=== PATIENT | male | born 1950 | race Caucasian/White ===

== ENCOUNTER 2020-05-30 23:09 | Emergency (ER) | payer MEDICARE, MEDICAID, SELFPAY ==
[2020-05-31 01:13] LABS: Anion Gap 20 (12-20); Carbon Dioxide 24 mmol/L (22-29); Chloride 96 mmol/L (96-108); Potassium 4.5 mmol/l (3.3-5.1); Sodium 135 mmol/L (135-145)
[2020-05-31 02:25] LABS: Blood Urea Nitrogen 43 mg/dL (9-16)
[2020-05-31 02:27] LABS: Calcium 8.1 mg/dL (8.4-10.2); Estimated Glomerular Filt Rate 9; Glucose Random 104 mg/dL (60-115)
--- NOTE | 2020-05-31 04:05 | ECG_ITS ---
Test Reason : TACHY Blood Pressure : / mmHG Vent. Rate : 115 BPM Atrial Rate : 108 BPM P-R Int : 142 ms QRS Dur : 078 ms QT Int : 348 ms P-R-T Axes : 054 -30 096 degrees QTc Int : 481 ms Sinus tachycardia with Premature atrial complexes and Premature ventricular complexes Left axis deviation Minimal voltage criteria for LVH, may be normal variant Cannot rule out Anterior infarct , age undetermined Abnormal ECG When compared with ECG of 29-MAY-2020 05:09, Premature atrial complexes are now Present Heart rate has increased Referred By: Winston Hernandez Electronically Signed By:SLAVA DOVE
[2020-05-31 04:43] LABS: Basophils Percent Auto 0.9 % (0-2); Eosinophils Absolute Auto 0.2 X10*3/uL (0.0-0.4); Eosinophils Percent Auto 4.9 % (0-4); Hematocrit 34.7 % (42-52); Hemoglobin 11.6 g/dl (14.0-18.0); Imm Gran Abs Auto 0.01 X10*3/uL (0.00-0.03); Imm Gran Pct Auto 0.3 % (0.0-0.4); Lymphocytes Absolute Auto 0.6 X10*3/uL (1.2-4.9); Lymphocytes Percent Auto 17.8 % (20-40); MANUAL DIFF FLAG SCAN; Mean Corpuscular HGB Conc 33.4 g/dl (31.0-36.0); Mean Corpuscular Hemoglobin 32.2 pg (27.0-33.0); Mean Corpuscular Volume 96.4 fL (80-98); Mean Platelet Volume 10.5 fL (9.4-12.4); Monocytes Absolute Auto 0.6 X10*3/uL (0.1-1.2); Monocytes Percent Auto 16.1 % (2-11); Neutrophils Absolute Auto 2.1 X10*3/uL (2.0-8.3); PLT CLUMP 1; Platelet Count 128 X10*3/uL (160-400); Red Cell Distribution Width 12.1 % (11.0-16.0); SCAN SMEAR FLAG 1; White Blood Count 3.5 X10*3/uL (4.8-10.8)
[2020-05-31 04:45] LABS: SLIDE REVIEW VERIFIED
[2020-06-03 17:25] VITALS: BMI 52.0
== END 2020-05-31 11:24 | disposition home or self-care (01) ==
PROVIDERS: Emergency Provider Emergency Medicine
DX: R10.9 Unspecified abdominal pain (principal); I12.0 Hypertensive chronic kidney disease with stage 5 chronic kidney disease or end stage renal disease; N18.6 End stage renal disease; Z99.2 Dependence on renal dialysis; R53.1 Weakness; R00.0 Tachycardia, unspecified; Z79.899 Other long term (current) drug therapy
CPT/HCPCS: 36415; 80048; 80051; 85025; 93005; 93010; 99283

== ENCOUNTER 2020-08-03 06:01 | Emergency (ER) | payer MEDICARE, MEDICAID, SELFPAY ==
[2020-08-03 06:07] VITALS: BP 172/98; PULSE 71; RESP 16; TEMP 36.8; O2SAT 97; BMI 28.0
--- NOTE | 2020-08-03 06:25 | PC.NURSE ---
SPOKE W/JUSTYNA- CHARGE NURSE AT [facility] IN [place]. STATES WILL ACCEPT PT IF HE IS TRANSFERED OVER TODAY
--- NOTE | 2020-08-03 06:29 | ED_ITS ---
HPI - Medical Clearance General Chief complaint: Medical Clearance Stated complaint: MISSED DIALYSIS Time Seen by Provider: 08/03/20 06:29 Source: patient and expediter clerk Mode of arrival: EMS Limitations: no limitations History of Present Illness HPI Narrative: This is a 70-year-old male who was scheduled for dialysis yesterday and then had to reschedule for this morning, transport was supposed to pick him up at 5:00 a.m. and when they did not show up his son called 911. EMS brought the patient here. On discussion with the son he denies that there was any medical reason to call the ambulance for his father other than he was concerned that he would not get his dialysis. The patient himself denies any shortness of breath, chest pain /palpitations, nausea /vomiting, abdominal pain or diarrhea. Related Information Allergies Allergy/AdvReac Type Severity Reaction Status Date / Time No Known Allergies Allergy Mild N/A Verified 08/03/20 06:11 Review of Systems Review of Systems: Pertinent positives and negatives as stated in the HPI 10 point review of systems is otherwise negative. PMFSH Past Medical History Source: nursing notes reviewed Social History Social History Advance Directives: No Advance Directives Information Provided: No Physical Exam Vital Signs: Vital Signs: Last Vital Signs Temp 98.2 F 08/03/20 06:07 Pulse 71 08/03/20 06:07 Resp 16 08/03/20 06:07 BP 172/98 H 08/03/20 06:07 Pulse Ox 97 08/03/20 06:07 Body Mass Index 28.0 VITAL SIGNS: Reviewed. GENERAL: Well developed, well nourished, in no acute distress. 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 No adventitious sounds or accessory muscle use. SpO2<97> CARDIOVASCULAR: Regular rate and rhythm without noted murmurs, no JVD or lower extremity edema. ABDOMEN: Soft, non-tender, non-distended with bowel sounds. No rigidity. No guarding. No palpable masses or hernias noted MUSCULOSKELETAL: No tenderness, deformities, or effusions noted on gross inspection. EXTREMITIES: No cyanosis, clubbing; LUE: AV Fistula SKIN: Inspection of the skin reveals no rashes, ulcerations, jaundice, pallor, or petechiae. NEUROLOGIC: Alert and oriented x 3. Spontaneous, movement of all extremities. Course Course Course Narrative: This is a 70-year-old male with history and clinical presentation consistent with miscommunication regarding transportation arrangements for scheduled dialysis without any medical complaints when discussed with both the patient as well as family. Discharge Plan Discharge Clinical Impression: Encounter for medical screening examination Patient Disposition: Xfer Other Additional Instructions: The patient and/or family acknowledge understanding of results (as applicable), diagnosis, treatment plan, need for follow up, and symptoms that should prompt a return to the emergency room.
[2020-08-03 08:11] VITALS: RESP 16
== END 2020-08-03 08:20 | disposition other institution (70) ==
PROVIDERS: Emergency Provider Student in an Organized Health Care Education/Training Program
DX: Z04.89 Encounter for examination and observation for other specified reasons (principal)
CPT/HCPCS: 99283; 99285

== ENCOUNTER 2020-08-10 00:14 | Emergency (ER) | payer MEDICARE, MEDICAID, SELFPAY ==
--- NOTE | 2020-08-10 00:23 | ED.CHESTPAIN ---
HPI - Chest Pain General Chief Complaint: General Medical Stated Complaint: Chest pain Time Seen by Provider: 08/10/20 00:23 Source: EMS Mode of arrival: EMS Limitations: no limitations History of Present Illness HPI narrative: Patient denies any complaints. Per EMS patient nephew told them that patient had chest pain prior to arrival history is not very clear as patient denies no chest pain and he is alert oriented x2-3. Per patient nephew who has a SALES PROJECT ADMINISTRATOR also lives with him patient said to him that he is not feeling good and had chest pain prior to arrival no shortness of breath patient had dialysis today and yesterday MD complaint: chest pain Related Data Allergies Allergy/AdvReac Type Severity Reaction Status Date / Time No Known Allergies Allergy Mild N/A Verified 08/03/20 06:11 Review of Systems Review of Systems: REVIEW OF SYSTEMS: Pertinent positives and negatives are stated above in the history. GEN: no fevers, chills, fatigue HEENT: no nasal congestion, sore throat, ear pain NEURO: no headache, dizziness, focal weakness PULM: no cough, shortness of breath CV: no chest pain, palpitations, LE edema ABD: no abdominal pain, nausea, vomiting, diarrhea : no dysuria, urgency, frequency SKIN: no rash ROS otherwise negative x 10 PMFSH Social History Social History Advance Directives: No Physical Exam Vital Signs: Vital Signs: Last Vital Signs Temp 97.1 F 08/10/20 00:39 Pulse 93 08/10/20 00:39 Resp 16 08/10/20 00:39 BP 134/85 08/10/20 00:39 Pulse Ox 98 08/10/20 00:39 Body Mass Index 27.3 Const: General: cooperative, healthy appearing, comfortable and no acute distress Orientation/consciousness: oriented to person, oriented to place and No oriented to time Limitations: no limitations HENMT: Head: Yes normocephalic and Yes atraumatic Ears: hearing grossly normal bilaterally General nose exam: Normal external nose present 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 Neck: Neck: Yes normal visual inspection Carotids: normal carotid upstroke Chest: Chest palpation & inspection: normal inspection of the chest and normal palpation of entire chest wall Resp: Effort & Inspection: normal respiratory effort Auscultation: clear to auscultation bilaterally, no crackles, no rales and no rhonchi Cardio: Palpation: normal PMI Rate: regular rate Rhythm: regular rhythm Heart sounds: S1 normal heart sound present and S2 normal heart sound present Peripheral pulses: Peripheral pulses 2+ throughout GI: Inspection: Yes normal to inspection Palpation (GI): Soft to palpation and nontender Auscultation: normal bowel sounds Back/Spine/Pelvis: Thoracic/Lumbar Spine: thoracic and lumbar spine normal to inspection Neuro: General: oriented to person, oriented to place, No oriented to time, tone normal, moves all extremities, Normal light touch and pain sensation and CN's II-XI intact bilaterally Extrem: Other: AV fistula left forearm bruit + Course Course Course Narrative: Patient denies any complaints but per SALES PROJECT ADMINISTRATOR patient had chest pain at home prior to arrival EKG no acute changes with the labs at this time patient denies any complaints MDM - Chest Pain MDM Narrative Medical decision making narrative: Patient with questionable chest pain at home prior to arrival awaiting for the labs no acute EKG changes patient denies any chest pain at this time. Patient signed out to Dr. Edward for further evaluation and disposition Medical Records Data Attestation: I reviewed the patient's medical records. Lab Data Result diagrams: 08/10/20 01:08/10/20 01:01 Labs: Lab Results 08/10/20 08/10/20 08/10/20 Range/Units 01:01 01:01 01:01 WBC 5.4 (4.8-10.8) X10*3/uL RBC 3.92 L (4.60-5.80) X10*6/uL Hgb 12.4 L (14.0-18.0) g/dl Hct 36.4 L (42-52) % MCV 92.9 (80-98) fL MCH 31.6 (27.0-33.0) pg MCHC 34.1 (31.0-36.0) g/dl RDW 13.1 (11.0-16.0) % Plt Count 228 D (160-400) X10*3/uL MPV 9.8 (9.4-12.4) fL Immature Gran % (Auto) 0.4 (0.0-0.4) % Neut % (Auto) 70.2 (45-73) % Lymph % (Auto) 13.2 L (20-40) % [place] % (Auto) 13.4 H (2-11) % Eos % (Auto) 2.6 (0-4) % Baso % (Auto) 0.2 (0-2) % Lymph # (Auto) 0.7 L (1.2-4.9) X10*3/uL [place] # (Auto) 0.7 (0.1-1.2) X10*3/uL Eos # (Auto) 0.1 (0.0-0.4) X10*3/uL Baso # (Auto) 0.0 (0.0-0.2) X10*3/uL Abs Immat Gran (auto) 0.02 (0.00-0.03) X10*3/uL Absolute Neuts (auto) 3.8 (2.0-8.3) X10*3/uL Absolute Nucleated RBC 0.000 (0.0-0.012) X10*3/uL Nucleated RBC % (auto) 0.0 (0.0-0.2) /100WBC PT 11.5 (10.8-13.0) SEC INR 1.0 (0.9-1.1) APTT 29.3 (24.1-38.0) SEC Sodium Cancelled Potassium Cancelled Chloride Cancelled Carbon Dioxide Cancelled Anion Gap Cancelled BUN Cancelled Creatinine Cancelled Estim Creat Clear Calc Cancelled Estimated GFR Cancelled Random Glucose Cancelled Calcium Cancelled ECG Data ECG #1: Attestation: I personally reviewed and interpreted this ECG as follows: Interpretation: Normal sinus rhythm PACs heart rate 99 left ventricular hypertrophy, n axis, QT interval slightly prolonged QTC [address] T wave changes impression no acute ischemia
--- NOTE | 2020-08-10 00:24 | ECG_ITS ---
Test Reason : CHEST PAIN Blood Pressure : / mmHG Vent. Rate : 099 BPM Atrial Rate : 099 BPM P-R Int : 130 ms QRS Dur : 086 ms QT Int : 378 ms P-R-T Axes : 050 -09 078 degrees QTc Int : 485 ms Sinus rhythm with Premature atrial complexes Left ventricular hypertrophy with repolarization abnormality Prolonged QT Abnormal ECG When compared with ECG of 31-MAY-2020 04:05, Premature ventricular complexes are no longer Present Referred By: Brady Frances Electronically Signed By:RICKIE KUMAR
[2020-08-10 00:39] VITALS: BP 134/85; PULSE 93; RESP 16; TEMP 36.2; O2SAT 98; BMI 27.3
[2020-08-10 01:06] LABS: MANUAL DIFF FLAG NO
[2020-08-10 01:07] LABS: Basophils Percent Auto 0.2 % (0-2); Eosinophils Absolute Auto 0.1 X10*3/uL (0.0-0.4); Eosinophils Percent Auto 2.6 % (0-4); Hematocrit 36.4 % (42-52); Hemoglobin 12.4 g/dl (14.0-18.0); Imm Gran Abs Auto 0.02 X10*3/uL (0.00-0.03); Imm Gran Pct Auto 0.4 % (0.0-0.4); Lymphocytes Absolute Auto 0.7 X10*3/uL (1.2-4.9); Lymphocytes Percent Auto 13.2 % (20-40); Mean Corpuscular HGB Conc 34.1 g/dl (31.0-36.0); Mean Corpuscular Hemoglobin 31.6 pg (27.0-33.0); Mean Corpuscular Volume 92.9 fL (80-98); Mean Platelet Volume 9.8 fL (9.4-12.4); Monocytes Absolute Auto 0.7 X10*3/uL (0.1-1.2); Monocytes Percent Auto 13.4 % (2-11); Neutrophils Absolute Auto 3.8 X10*3/uL (2.0-8.3); Neutrophils Percent Auto 70.2 % (45-73); Platelet Count 228 X10*3/uL (160-400); Red Blood Count 3.92 X10*6/uL (4.60-5.80); Red Cell Distribution Width 13.1 % (11.0-16.0); White Blood Count 5.4 X10*3/uL (4.8-10.8)
[2020-08-10 01:15] LABS: Prothrombin Time 11.5 SEC (10.8-13.0)
[2020-08-10 01:17] LABS: Partial Thromboplastin Time 29.3 SEC (24.1-38.0)
[2020-08-10 01:44] LABS: Troponin-I High Sensitivity 81.8 ng/L (<3.5-35.0)
--- NOTE | 2020-08-10 01:46 | ED.GENADULT ---
HPI - General Adult General Chief complaint: General Medical Stated complaint: Chest pain Time Seen by Provider: 08/10/20 00:23 Source: EMS Mode of arrival: EMS Limitations: no limitations Related Data Previous Rx's Medication Instructions Recorded azithromycin [Zithromax] 500 mg PO DAILY 5 Days #5 tab 09/11/20 Allergies Allergy/AdvReac Type Severity Reaction Status Date / Time No Known Allergies Allergy Mild N/A Verified 08/10/20 02:42 [facility] Social History Social History Alcohol intake: former Smoking Status: Former smoker Advance Directives: No Advance Directives Information Provided: No Physical Exam Vital Signs: Vital Signs: Last Vital Signs Temp 97.1 F 08/10/20 00:39 Pulse 66 08/10/20 09:04 Resp 18 08/10/20 09:04 BP 156/78 H 08/10/20 09:04 Pulse Ox 98 08/10/20 09:04 Body Mass Index 27.3 Medical Decision Making Lab Data Result diagrams: 08/10/20 01:01 08/10/20 01:47 Labs: Lab Results 08/10/20 08/10/20 08/10/20 Range/Units 01:01 01:01 01:01 WBC 5.4 (4.8-10.8) X10*3/uL RBC 3.92 L (4.60-5.80) X10*6/uL Hgb 12.4 L (14.0-18.0) g/dl Hct 36.4 L (42-52) % MCV 92.9 (80-98) fL MCH 31.6 (27.0-33.0) pg MCHC 34.1 (31.0-36.0) g/dl RDW 13.1 (11.0-16.0) % Plt Count 228 D (160-400) X10*3/uL MPV 9.8 (9.4-12.4) fL Immature Gran % (Auto) 0.4 (0.0-0.4) % Neut % (Auto) 70.2 (45-73) % Lymph % (Auto) 13.2 L (20-40) % [place] % (Auto) 13.4 H (2-11) % Eos % (Auto) 2.6 (0-4) % Baso % (Auto) 0.2 (0-2) % Lymph # (Auto) 0.7 L (1.2-4.9) X10*3/uL [place] # (Auto) 0.7 (0.1-1.2) X10*3/uL Eos # (Auto) 0.1 (0.0-0.4) X10*3/uL Baso # (Auto) 0.0 (0.0-0.2) X10*3/uL Abs Immat Gran (auto) 0.02 (0.00-0.03) X10*3/uL Absolute Neuts (auto) 3.8 (2.0-8.3) X10*3/uL Absolute Nucleated RBC 0.000 (0.0-0.012) X10*3/uL Nucleated RBC % (auto) 0.0 (0.0-0.2) /100WBC PT (10.8-13.0) SEC INR (0.9-1.1) APTT (24.1-38.0) SEC Sodium Cancelled Potassium Cancelled Chloride Cancelled Carbon Dioxide Cancelled Anion Gap Cancelled BUN Cancelled Creatinine Cancelled Estim Creat Clear Calc Cancelled Estimated GFR Cancelled Random Glucose Cancelled Calcium Cancelled Total Bilirubin (0.0-1.0) mg/dL Direct Bilirubin (0.0-0.5) mg/dL AST (5-37) U/L ALT (0-40) U/L Alkaline Phosphatase (39-117) U/L Troponin I High Sens 81.8 H (<3.5-35.0) ng/L Total Protein (6.5-8.0) g/dL Albumin (3.5-5.0) g/dL 08/10/20 08/10/20 08/10/20 Range/Units 01:01 01:47 04:13 WBC (4.8-10.8) X10*3/uL RBC (4.60-5.80) X10*6/uL Hgb (14.0-18.0) g/dl Hct (42-52) % MCV (80-98) fL MCH (27.0-33.0) pg MCHC (31.0-36.0) g/dl RDW (11.0-16.0) % Plt Count (160-400) X10*3/uL MPV (9.4-12.4) fL Immature Gran % (Auto) (0.0-0.4) % Neut % (Auto) (45-73) % Lymph % (Auto) (20-40) % [place] % (Auto) (2-11) % Eos % (Auto) (0-4) % Baso % (Auto) (0-2) % Lymph # (Auto) (1.2-4.9) X10*3/uL [place] # (Auto) (0.1-1.2) X10*3/uL Eos # (Auto) (0.0-0.4) X10*3/uL Baso # (Auto) (0.0-0.2) X10*3/uL Abs Immat Gran (auto) (0.00-0.03) X10*3/uL Absolute Neuts (auto) (2.0-8.3) X10*3/uL Absolute Nucleated RBC (0.0-0.012) X10*3/uL Nucleated RBC % (auto) (0.0-0.2) /100WBC PT 11.5 (10.8-13.0) SEC INR 1.0 (0.9-1.1) APTT 29.3 (24.1-38.0) SEC Sodium 133 L Potassium 3.7 Chloride 95 L Carbon Dioxide 25 Anion Gap 17 BUN 43 H Creatinine 4.39 H* Estim Creat Clear Calc 15.3 Estimated GFR 13 Random Glucose 121 H Calcium 8.5 Total Bilirubin 0.8 (0.0-1.0) mg/dL Direct Bilirubin 0.3 (0.0-0.5) mg/dL AST 40 H (5-37) U/L ALT 27 (0-40) U/L Alkaline Phosphatase 106 (39-117) U/L Troponin I High Sens 69.2 H (<3.5-35.0) ng/L Total Protein 7.3 (6.5-8.0) g/dL Albumin 3.3 L (3.5-5.0) g/dL Discharge Plan Discharge Clinical Impression: Chest pain Patient Disposition: Home, Self-Care Instructions: Chest Pain (ED) Additional Instructions: Your EKG and blood work were normal Follow-up with your doctor in 2 days. Please return to the emergency department if her symptoms get worse or if you develop any new symptoms that are concerning to you. Prescriptions: No Action azithromycin [Zithromax] 500 mg tablet 500 mg PO DAILY 5 Days Qty: 5 RF: 0 Interventions: ED Discharge Assessment Last Done: 08/10/20 09:05 Discharge Date/Time: 08/10/20 09:33
[2020-08-10 02:00] VITALS: BP 151/67; PULSE 102; RESP 20; O2SAT 98
--- NOTE | 2020-08-10 02:24 | PC.NURSE ---
NORMAL SALINE ORDER ENTERED IN ERROR BY MD NAHUN LOERA UNABLE TO DC THEREFORE THIS RN DOCUMENTED AGAINST MED. MED NOT GIVEN.
[2020-08-10 02:36] LABS: Alanine Aminotransferase 27 U/L (0-40); Albumin Level 3.3 g/dL (3.5-5.0); Alkaline Phosphatase 106 U/L (39-117); Anion Gap 17 (12-20); Aspartate Amino Transferase 40 U/L (5-37); Bilirubin Direct 0.3 mg/dL (0.0-0.5); Bilirubin Total 0.8 mg/dL (0.0-1.0); Blood Urea Nitrogen 43 mg/dL (9-16); Calcium 8.5 mg/dL (8.4-10.2); Carbon Dioxide 25 mmol/L (22-29); Chloride 95 mmol/L (96-108); Creatinine Clr Calc Pharmacy 15.3; Estimated Glomerular Filt Rate 13; Glucose Random 121 mg/dL (60-115); Potassium 3.7 mmol/l (3.3-5.1); Sodium 133 mmol/L (135-145); Total Protein 7.3 g/dL (6.5-8.0)
--- NOTE | 2020-08-10 03:53 | PC.NURSE ---
patient is a difficult stick. Phlebotomy contacted.
[2020-08-10 04:00] VITALS: BP 152/87; PULSE 94; RESP 18; O2SAT 96
[2020-08-10 05:38] LABS: Troponin-I High Sensitivity 69.2 ng/L (<3.5-35.0)
[2020-08-10 06:00] VITALS: BP 160/85; PULSE 87; RESP 18; O2SAT 98
[2020-08-10 06:40] VITALS: BP 154/83; PULSE 87; RESP 16; O2SAT 99
--- NOTE | 2020-08-10 06:59 | PC.NURSE ---
Preparing to discharge home. Contacted home and school visitor, awaiting arrival to plan discharge.
--- NOTE | 2020-08-10 07:54 | PC.NURSE ---
spoke with patient's primary contact (Ivonne Blevins) on file. [facility] unable to provide transportation home. Patient requesting ambulance ride back home, states that he has dialysis on Thursday, , Thursday. ore sampler notified.
[2020-08-10 09:04] VITALS: BP 156/78; PULSE 66; RESP 18; O2SAT 98
== END 2020-08-10 09:33 | disposition home or self-care (01) ==
PROVIDERS: Internal Medicine; Emergency Provider Emergency Medicine Emergency Medical Services
DX: R07.89 Other chest pain (principal)
CPT/HCPCS: 36415; 80048; 80076; 84484; 85025; 85610; 85730; 93005; 99284

== ENCOUNTER 2020-08-28 14:42 | Outpatient (REF) | payer MEDICARE, MEDICAID, SELFPAY | END 2020-08-28 14:43 | disposition home or self-care (01) | LOC: HO.LAB 14:42 | PROVIDERS: Visit Provider Internal Medicine | DX: Z20.828 Contact with and (suspected) exposure to other viral communicable diseases (principal) | CPT/HCPCS: C9803; U0003 ==

== ENCOUNTER 2020-09-07 13:52 | Outpatient (REF) | payer MEDICARE, MEDICAID, SELFPAY ==
[2020-09-07 14:45] LABS: MANUAL DIFF FLAG NO
[2020-09-07 14:51] LABS: Eosinophils Absolute Auto 0.1 X10*3/uL (0.0-0.4); Eosinophils Percent Auto 1.2 % (0-4); Hematocrit 28.1 % (42-52); Hemoglobin 9.5 g/dl (14.0-18.0); Imm Gran Abs Auto 0.06 X10*3/uL (0.00-0.03); Imm Gran Pct Auto 0.9 % (0.0-0.4); Lymphocytes Absolute Auto 0.9 X10*3/uL (1.2-4.9); Lymphocytes Percent Auto 13.1 % (20-40); Mean Corpuscular HGB Conc 33.8 g/dl (31.0-36.0); Mean Corpuscular Hemoglobin 31.6 pg (27.0-33.0); Mean Corpuscular Volume 93.4 fL (80-98); Mean Platelet Volume 9.8 fL (9.4-12.4); Monocytes Absolute Auto 0.5 X10*3/uL (0.1-1.2); Monocytes Percent Auto 7.7 % (2-11); Neutrophils Absolute Auto 5.3 X10*3/uL (2.0-8.3); Neutrophils Percent Auto 77.1 % (45-73); Platelet Count 168 X10*3/uL (160-400); Red Blood Count 3.01 X10*6/uL (4.60-5.80); Red Cell Distribution Width 13.3 % (11.0-16.0); White Blood Count 6.9 X10*3/uL (4.8-10.8)
[2020-09-07 14:54] LABS: Prothrombin Time 11.4 SEC (10.8-13.0)
[2020-09-07 15:00] LABS: Alanine Aminotransferase 31 U/L (0-40); Alkaline Phosphatase 93 U/L (39-117); Aspartate Amino Transferase 33 U/L (5-37); Bilirubin Direct 0.2 mg/dL (0.0-0.5); Bilirubin Total 0.5 mg/dL (0.0-1.0); Total Protein 5.9 g/dL (6.5-8.0)
[2020-09-12 01:17] LABS: FIB-ALT 27 U/L (9-46); FIB-Alpha-2-Macroglobulin 181 mg/dL (106-279); FIB-Apolipoprotein A1 133 mg/dL (94-176); FIB-GGT 51 U/L (3-70); FIB-Haptoglobin 52 mg/dL (43-212); FIB-Total Bilirubin 0.4 mg/dL (0.2-1.2); Liver Fibrosis Score 0.47; Liver Fibrosis Stage F1-F2; Nec Inflam Act Grade A0; Nec Inflam Act Score 0.16
== END 2020-09-07 13:53 | disposition home or self-care (01) ==
LOC: HO.LAB 13:52
PROVIDERS: PCP Internal Medicine; Visit Provider Internal Medicine
DX: B18.2 Chronic viral hepatitis C (principal)
CPT/HCPCS: 36415; 80076; 81596; 85025; 85610; 87522

== ENCOUNTER 2020-09-10 19:42 | Emergency (ER) | payer MEDICARE, MEDICAID, SELFPAY ==
[2020-09-10 20:18] VITALS: BP 169/76; PULSE 78; RESP 18; TEMP 37.3; O2SAT 94; BMI 28.2
[2020-09-10 20:27] VITALS: BP 169/76; PULSE 78; RESP 16; TEMP 37.3; O2SAT 94
--- NOTE | 2020-09-10 21:04 | XR_ITS ---
EXAMINATION: XR CHEST CLINICAL INFORMATION: Cough COMPARISON: Chest x-ray 05/29/2020 TECHNIQUE: Frontal view of the chest was obtained. FINDINGS: Chronic cardiac enlargement. More consolidated appearance of right lower lobe airspace disease. Small right-sided pleural effusion is also again appreciated. No pneumothorax. XR/XR chest 1V IMPRESSION: Worsening right lower lobe consolidative airspace disease. Persistent small pleural effusion.
--- NOTE | 2020-09-10 21:06 | ED.GENADULT ---
HPI - General Adult General Chief complaint: General Medical Stated complaint: ABD PAIN Time Seen by Provider: 09/10/20 20:54 Source: patient, EMS and lace inspector Mode of arrival: EMS Limitations: no limitations History of Present Illness HPI narrative: 70 years old male came in with cough for the past 3 days describe it as productive cough with yellow sputum, no fever, no chills, patient has been self-quarantine and following precaution for COVID with no exposure to sick contact. Otherwise patient has no other symptoms. No fever, no chills. Related Data Allergies Allergy/AdvReac Type Severity Reaction Status Date / Time No Known Allergies Allergy Mild N/A Verified 08/10/20 02:42 Review of Systems Review of Systems: All other systems are reviewed and are negative Constitutional: Reports as per HPI and Reports no additional constitutional complaints Eyes: Reports as per HPI and Reports no additional eye complaints Reports system reviewed and no additional complaints, except as documented Cardiovascular: Reports as per HPI and Reports no additional cardiovascular complaints Respiratory: Reports as per HPI and Reports no additional respiratory complaints Gastrointestinal: Reports as per HPI and Reports no additional gastrointestinal complaints Genitourinary: Reports no additional female genitourinary complaints Musculoskeletal: Reports no additional musculoskeletal complaints Skin/Breast: Reports system reviewed and no additional complaints, except as docu Psychiatric: Reports no additional psychiatric complaints Endocrine: Reports no additional endocrine complaints Hematologic/Lymphatic: Reports no additional hematologic/lymphatic complaints Allergic/Immunologic: Reports no additional allergic/immunologic complaints Reports system reviewed and no additional complaints, except as documented and Reports Abnormal speech present [facility] Social History Social History Alcohol intake: former Smoking Status: Former smoker Smoked in Last 30 Days: No Use of substances other than those prescribed or required for medical reasons: No Advance Directives: No Advance Directives Information Provided: Yes Physical Exam Vital Signs: Vital Signs: Last Vital Signs Temp 99.2 F 09/10/20 20:27 Pulse 78 09/10/20 20:27 Resp 16 09/10/20 20:27 BP 169/76 H 09/10/20 20:27 Pulse Ox 94 09/10/20 20:27 Body Mass Index 28.2 Vital signs have been reviewed as normal and appeared to be correct. Blood pressure high range, Heart rate normal. Respiration rate normal. Temperature normal. Oxygen saturation normal. Appearance: Alert. Oriented X3. No acute distress. Head: Normal external exam. Normocephalic. Atraumatic. No Alejandra signs noted. No raccoon eyes noted Eyes: PERRLA. EOMI. Conjunctiva and sclera normal. Eyelids normal. ENT: EAC normal. TM's Normal. Pharynx normal. Uvula midline. Moist mucous membranes. No trismus noted. No drooling noted. No muffled voice noted. Neck: Normal inspection. Neck supple. FROM. No adenopathy. Thyroid Normal. No meningeal signs. No neck mass noted. CVS: Normal heart rate and rhythm. Heart sound normal. No murmurs noted. Pulses normal throughout. Respiratory: No respiratory distress. Painless inspiration. Breath sounds normal. No wheezes/rales/rhonchi noted. Chest nontender. No accessory muscle usage noted or decreased air movement noted. Abdomen: Soft and nontender. Bowel sounds normal in all 4 quadrants. No distention noted. No organomegaly noted. No visible injury noted. Back: No CVA tenderness. Full range of motion noted. Skin: Skin warm and dry. Normal skin color. Normal skin turgor. No rashes/lesions/lacerations noted. Extremities: No lower extremity edema. Extremities exhibit normal range of motion. Extremities nontender. Neuro: Oriented X 3. No motor deficit. No sensory deficit. Reflexes normal. Medical Decision Making [facility] Narrative Medical decision making narrative: 70-year-old male came in with complaint of coughing, physical exam and x-ray showed right lower lobe pneumonia. And chronic hyponatremia, acute on chronic renal insufficiency. Patient did not meet criteria for sepsis, patient would like to go home patient is due for dialysis tomorrow patient was instructed to keep his dialysis appointment tomorrow patient missed the last dialysis 2 days ago. Patient received ceftriaxone/zithromax in the ED will prescribe this to gro[facility] to his pharmacy. Lab Data Result diagrams: 09/10/20 22:32 09/10/20 22:32 Labs: Lab Results 09/10/20 09/10/20 09/10/20 Range/Units 22:32 22:32 22:32 WBC 15.6 H (4.8-10.8) X10*3/uL RBC 3.07 L (4.60-5.80) X10*6/uL Hgb 9.9 L (14.0-18.0) g/dl Hct 28.0 L (42-52) % MCV 91.2 (80-98) fL MCH 32.2 (27.0-33.0) pg MCHC 35.4 (31.0-36.0) g/dl RDW 12.7 (11.0-16.0) % Plt Count 182 (160-400) X10*3/uL MPV 9.4 (9.4-12.4) fL Immature Gran % (Auto) 0.6 H (0.0-0.4) % Neut % (Auto) 86.0 H (45-73) % Lymph % (Auto) 5.8 L (20-40) % [place] % (Auto) 7.3 (2-11) % Eos % (Auto) 0.2 (0-4) % Baso % (Auto) 0.1 (0-2) % Lymph # (Auto) 0.9 L (1.2-4.9) X10*3/uL [place] # (Auto) 1.1 (0.1-1.2) X10*3/uL Eos # (Auto) 0.0 (0.0-0.4) X10*3/uL Baso # (Auto) 0.0 (0.0-0.2) X10*3/uL Abs Immat Gran (auto) 0.09 H (0.00-0.03) X10*3/uL Absolute Neuts (auto) 13.4 H (2.0-8.3) X10*3/uL Absolute Nucleated RBC 0.000 (0.0-0.012) X10*3/uL Nucleated RBC % (auto) 0.0 (0.0-0.2) /100WBC Sodium 128 L (135-145) mmol/L Potassium 4.6 D (3.3-5.1) mmol/l Chloride 92 L (96-108) mmol/L Carbon Dioxide 23 (22-29) mmol/L Anion Gap 18 (12-20) BUN 73 H D (9-16) mg/dL Creatinine 6.92 H* (0.5-1.4) mg/dL Estim Creat Clear Calc 9.9 Estimated GFR 8 Random Glucose 120 H (60-115) mg/dL Lactic Acid (0.5-2.0) mmol/L Calcium 8.0 L (8.4-10.2) mg/dL COVID-19 (KATLIN) Negative (Negative) COVID-19 Clin Com See Note 09/11/20 Range/Units 00:24 WBC (4.8-10.8) X10*3/uL RBC (4.60-5.80) X10*6/uL Hgb (14.0-18.0) g/dl Hct (42-52) % MCV (80-98) fL MCH (27.0-33.0) pg MCHC (31.0-36.0) g/dl RDW (11.0-16.0) % Plt Count (160-400) X10*3/uL MPV (9.4-12.4) fL Immature Gran % (Auto) (0.0-0.4) % Neut % (Auto) (45-73) % Lymph % (Auto) (20-40) % [place] % (Auto) (2-11) % Eos % (Auto) (0-4) % Baso % (Auto) (0-2) % Lymph # (Auto) (1.2-4.9) X10*3/uL [place] # (Auto) (0.1-1.2) X10*3/uL Eos # (Auto) (0.0-0.4) X10*3/uL Baso # (Auto) (0.0-0.2) X10*3/uL Abs Immat Gran (auto) (0.00-0.03) X10*3/uL Absolute Neuts (auto) (2.0-8.3) X10*3/uL Absolute Nucleated RBC (0.0-0.012) X10*3/uL Nucleated RBC % (auto) (0.0-0.2) /100WBC Sodium (135-145) mmol/L Potassium (3.3-5.1) mmol/l Chloride (96-108) mmol/L Carbon Dioxide (22-29) mmol/L Anion Gap (12-20) BUN (9-16) mg/dL Creatinine (0.5-1.4) mg/dL Estim Creat Clear Calc Estimated GFR Random Glucose (60-115) mg/dL Lactic Acid 0.8 (0.5-2.0) mmol/L Calcium (8.4-10.2) mg/dL COVID-19 (KATLIN) (Negative) COVID-19 Clin Com Imaging Data Chest x-ray: Radiologist's impression: Worsening right lower lobe consolidative airspace disease. Persistent small pleural effusion. Discharge Plan Discharge Clinical Impression: Acute hyponatremia, Acute kidney injury superimposed on chronic kidney disease, Community acquired pneumonia of right lower lobe of lung Patient Disposition: Admitted As Inpatient
--- NOTE | 2020-09-10 22:47 | PC.NURSE ---
Covid swab and labs obtained.
[2020-09-10 22:54] LABS: MANUAL DIFF FLAG NO
[2020-09-10 23:01] LABS: Basophils Percent Auto 0.1 % (0-2); Eosinophils Percent Auto 0.2 % (0-4); Hemoglobin 9.9 g/dl (14.0-18.0); Imm Gran Abs Auto 0.09 X10*3/uL (0.00-0.03); Imm Gran Pct Auto 0.6 % (0.0-0.4); Lymphocytes Absolute Auto 0.9 X10*3/uL (1.2-4.9); Lymphocytes Percent Auto 5.8 % (20-40); Mean Corpuscular HGB Conc 35.4 g/dl (31.0-36.0); Mean Corpuscular Hemoglobin 32.2 pg (27.0-33.0); Mean Corpuscular Volume 91.2 fL (80-98); Mean Platelet Volume 9.4 fL (9.4-12.4); Monocytes Absolute Auto 1.1 X10*3/uL (0.1-1.2); Monocytes Percent Auto 7.3 % (2-11); Neutrophils Absolute Auto 13.4 X10*3/uL (2.0-8.3); Platelet Count 182 X10*3/uL (160-400); Red Blood Count 3.07 X10*6/uL (4.60-5.80); Red Cell Distribution Width 12.7 % (11.0-16.0); White Blood Count 15.6 X10*3/uL (4.8-10.8)
[2020-09-10 23:10] LABS: COVID-19 Test Negative (Negative)
[2020-09-10] MEDS: Azithromycin 500 MG TABLET 1000 MG PO (23:26)
[2020-09-10 23:27] LABS: Anion Gap 18 (12-20); Blood Urea Nitrogen 73 mg/dL (9-16); Carbon Dioxide 23 mmol/L (22-29); Chloride 92 mmol/L (96-108); Creatinine Clr Calc Pharmacy 9.9; Estimated Glomerular Filt Rate 8; Glucose Random 120 mg/dL (60-115); Potassium 4.6 mmol/l (3.3-5.1); Sodium 128 mmol/L (135-145)
--- NOTE | 2020-09-10 23:27 | PC.NURSE ---
Pt medicated per MAR.
--- NOTE | 2020-09-11 00:09 | PC.NURSE ---
3 IV attempts unsuccessful. MD at bedside with plant maintenance manager discussing plan of care. MD to attempt IV access.
[2020-09-11] MEDS: cefTRIAXone sodium 1 GM in 0.9 % Sodium Chloride 50 ML IV (00:24)
--- NOTE | 2020-09-11 00:26 | PC.NURSE ---
IV established to left EJ by MD Nguyen, 20 ga. Pt medicated per MAR with ABx and IVF. Pt discussing admit VS discharge, pt requesting DC home.
--- NOTE | 2020-09-11 01:00 | PC.NURSE ---
MD advising this RN to only medicate with ABX and not IVF due to plan to discharge home for dialysis.
[2020-09-11 01:04] LABS: Lactic Acid 0.8 mmol/L (0.5-2.0)
[2020-09-11 01:21] VITALS: BP 130/76; PULSE 75; RESP 20
--- NOTE | 2020-09-11 01:24 | PC.NURSE ---
EJ removed by this RN per MD request. VSS. Awaiting EMS to transfer home.
== END 2020-09-11 01:50 | disposition home or self-care (01) ==
PROVIDERS: Emergency Provider Emergency Medicine
DX: E87.1 Hypo-osmolality and hyponatremia (principal); N17.9 Acute kidney failure, unspecified; N18.6 End stage renal disease; J18.9 Pneumonia, unspecified organism; Z20.822 Contact with and (suspected) exposure to COVID-19
CPT/HCPCS: 36415; 71045; 80048; 83605; 85025; 87040; 87147; 87635; 96365; 99284; J0696

== ENCOUNTER 2020-10-04 12:03 | Emergency (ER) | payer MEDICARE, MEDICAID, SELFPAY ==
[2020-10-04 12:21] VITALS: BP 150/77; PULSE 85; RESP 16; TEMP 35.7; O2SAT 97; BMI 26.8
--- NOTE | 2020-10-04 12:41 | ED_ITS ---
HPI - General Adult General Chief complaint: General Medical Stated complaint: FROM DIALYSIS,FISTULA NOT COAGULATING,SECT 12 Time Seen by Provider: 10/04/20 12:23 Source: patient Mode of arrival: ambulatory Limitations: no limitations History of Present Illness HPI narrative: 70-year-old male history of end-stage renal disease on dialysis, patient came from dialysis today for bleeding of the AV fistula after dialysis. Pressure was applied by dialysis. Initially patient refused to come to the ED patient was made Section 12 to come to the ED for further evaluation. In the emergency department patient has no further bleeding pressure was taken of the fistula. Related Data Previous Rx's Medication Instructions Recorded azithromycin [Zithromax] 500 mg PO DAILY 5 Days #5 tab 09/11/20 Allergies Allergy/AdvReac Type Severity Reaction Status Date / Time No Known Allergies Allergy Mild N/A Verified 08/10/20 02:42 Review of Systems Review of Systems: All other systems are reviewed and are negative Constitutional: Reports as per HPI and Reports no additional constitutional complaints Eyes: Reports as per HPI and Reports no additional eye complaints Reports system reviewed and no additional complaints, except as documented Cardiovascular: Reports as per HPI and Reports no additional cardiovascular complaints Respiratory: Reports as per HPI and Reports no additional respiratory complaints Gastrointestinal: Reports as per HPI and Reports no additional gastrointestinal complaints Genitourinary: Reports no additional female genitourinary complaints Musculoskeletal: Reports no additional musculoskeletal complaints Skin/Breast: Reports system reviewed and no additional complaints, except as docu Psychiatric: Reports no additional psychiatric complaints Endocrine: Reports no additional endocrine complaints Hematologic/Lymphatic: Reports no additional hematologic/lymphatic complaints Allergic/Immunologic: Reports no additional allergic/immunologic complaints Reports system reviewed and no additional complaints, except as documented and Reports Abnormal speech present [facility] Social History Social History Alcohol intake: former Smoking Status: Former smoker Advance Directives: No Advance Directives Information Provided: No Physical Exam Vital Signs: Vital Signs: Last Vital Signs Temp 96.3 F L 10/04/20 12:21 Pulse 85 10/04/20 12:21 Resp 16 10/04/20 12:21 BP 150/77 H 10/04/20 12:21 Pulse Ox 97 10/04/20 12:21 Body Mass Index 26.8 Vital signs have been reviewed as normal and appeared to be correct. Blood pressure in the high range. Heart rate normal. Respiration rate normal. Temperature normal. Oxygen saturation normal. Appearance: Alert. Oriented X3. No acute distress. Head: Normal external exam. Normocephalic. Atraumatic. No Alejandra signs noted. No raccoon eyes noted Eyes: PERRLA. EOMI. Conjunctiva and sclera normal. Eyelids normal. ENT: TM's Normal. Pharynx normal. Uvula midline. Moist mucous membranes. No trismus noted. No drooling noted. No muffled voice noted. Neck: Normal inspection. Neck supple. FROM. No adenopathy. Thyroid Normal. No meningeal signs. No neck mass noted. CVS: Normal heart rate and rhythm. Heart sound normal. No murmurs noted. Pulses normal throughout. Respiratory: No respiratory distress. Painless inspiration. Breath sounds normal. No wheezes/rales/rhonchi noted. Chest nontender. No accessory muscle usage noted or decreased air movement noted. Abdomen: Soft and nontender. Bowel sounds normal in all 4 quadrants. No distention noted. No organomegaly noted. No visible injury noted. Back: No CVA tenderness. Full range of motion noted. Skin: Skin warm and dry. Normal skin color. Normal skin turgor. No rashes/lesions/lacerations noted. Extremities: Left side AV fistula, with good thrill pulse, no active bleeding. Neuro: Oriented X 3. No motor deficit. No sensory deficit. Reflexes normal. Course Course Course Narrative: Assessment and plan. 70-year-old male end-stage renal disease, came in today for bleeding from his left AV fistula, bleeding was controlled with external pressure. Patient was made section 12 because he initially refused to come to the hospital, patient otherwise in the emergency department declined SI or HI or hallucination. Patient would like to go home. Discharge Plan Discharge Clinical Impression: AV (arteriovenous fistula) Patient Disposition: Home, Self-Care Instructions: Arteriovenous Fistula Creation for Hemodialysis (DC) Prescriptions: No Action azithromycin [Zithromax] 500 mg tablet 500 mg PO DAILY 5 Days Qty: 5 RF: 0 Referrals: Richi Sweeney MD [Primary Care Provider] - 2 days
== END 2020-10-04 13:52 | disposition home or self-care (01) ==
PROVIDERS: Emergency Provider Emergency Medicine; PCP Internal Medicine
DX: T82.838A Hemorrhage due to vascular prosthetic devices, implants and grafts, initial encounter (principal); Y82.9 Unspecified medical devices associated with adverse incidents; Y92.9 Unspecified place or not applicable; Z87.891 Personal history of nicotine dependence; Z79.899 Other long term (current) drug therapy
CPT/HCPCS: 99283

== ENCOUNTER 2020-10-06 00:16 | Emergency (ER) | payer MEDICARE, MEDICAID, SELFPAY ==
[2020-10-06 00:30] VITALS: BP 128/70; PULSE 88; RESP 16; TEMP 36.3; O2SAT 98; BMI 25.9
--- NOTE | 2020-10-06 00:35 | ED_ITS ---
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 Patient also claimed that he had closed head injury 3 days ago (hit his left side of the head no LOC, no headache currently, no nausea, no vomiting, no fever. Patient has been eating with normal appetite. Patient stated that left-sided abdominal pain started 3 days ago, described as intermittent, nothing makes it worse, nothing makes it better, associated with nonbloody watery diarrhea. Related Data Previous Rx's Medication Instructions Recorded azithromycin [Zithromax] 500 mg PO DAILY 5 Days #5 tab 09/11/20 Allergies Allergy/AdvReac Type Severity Reaction Status Date / Time No Known Allergies Allergy Mild N/A Verified 08/10/20 02:42 Review of Systems Review of Systems: All other systems are reviewed and are negative Constitutional: Reports as per HPI and Reports no additional constitutional complaints Eyes: Reports as per HPI and Reports no additional eye complaints Reports system reviewed and no additional complaints, except as documented Cardiovascular: Reports as per HPI and Reports no additional cardiovascular complaints Respiratory: Reports as per HPI and Reports no additional respiratory complaints Gastrointestinal: Reports as per HPI and Reports no additional gastrointestinal complaints Genitourinary: Reports no additional female genitourinary complaints Musculoskeletal: Reports no additional musculoskeletal complaints Skin/Breast: Reports system reviewed and no additional complaints, except as docu Psychiatric: Reports no additional psychiatric complaints Endocrine: Reports no additional endocrine complaints Hematologic/Lymphatic: Reports no additional hematologic/lymphatic complaints Allergic/Immunologic: Reports no additional allergic/immunologic complaints Reports system reviewed and no additional complaints, except as documented and Reports Abnormal speech present [facility] Social History Social History Alcohol intake: former Smoking Status: Former smoker Advance Directives: No Advance Directives Information Provided: No Physical Exam Vital Signs: Vital Signs: Last Vital Signs Temp 97.3 F 10/06/20 00:30 Pulse 88 10/06/20 00:30 Resp 16 10/06/20 00:30 BP 128/70 10/06/20 00:30 Pulse Ox 98 10/06/20 00:30 Body Mass Index 25.9 Vital signs have been reviewed as normal and appeared to be correct. Blood pressure normal. Heart rate normal. Respiration rate normal. Temperature normal. Oxygen saturation normal. Appearance: Alert. Oriented X3. No acute distress. Head: Normal external exam. Normocephalic. Atraumatic. No Alejandra signs noted. No raccoon eyes noted Eyes: PERRLA. EOMI. Conjunctiva and sclera normal. Eyelids normal. ENT: TM's Normal. Pharynx normal. Uvula midline. Moist mucous membranes. No trismus noted. No drooling noted. No muffled voice noted. Neck: Normal inspection. Neck supple. FROM. No adenopathy. Thyroid Normal. No meningeal signs. No neck mass noted. CVS: Normal heart rate and rhythm. Heart sound normal. No murmurs noted. Pulses normal throughout. Respiratory: No respiratory distress. Painless inspiration. Breath sounds normal. No wheezes/rales/rhonchi noted. Chest nontender. No accessory muscle usage noted or decreased air movement noted. Abdomen: Soft and nontender. Bowel sounds normal in all 4 quadrants. No distention noted. No organomegaly noted. No visible injury noted. Back: No CVA tenderness. Full range of motion noted. Skin: Skin warm and dry. Normal skin color. Normal skin turgor. No rashes/lesions/lacerations noted. Extremities: No lower extremity edema. Extremities exhibit normal range of motion. Extremities nontender. Neuro: Oriented X 3. No motor deficit. No sensory deficit. Reflexes normal. Course Course Course Narrative: Assessment and plan. 70-year-old male with end-stage renal disease on dialysis presented with nonspecific abdominal pain, labs at baseline, patient feels better, repeat abdominal exam show no tenderness, no rebound, no guarding. Patient with a good appetite able to tolerate p.o. intake while in the emergency department. Will arrange for discharging patient to dialysis. Reevaluation(s) Reevaluation #1: Ambulance was arranged to take the patient to dialysis which is due today at 06:00 o'clock, patient is awake and alert and oriented, patient refused to go to dialysis, I explained the patient the importance of getting dialysis patient is insisting not going to dialysis and he wants to go home. At this point patient understood risk of not having dialysis and I discharge the patient against medical advice Time: 05:10 Medical Decision Making Lab Data Lab results reviewed: Yes I reviewed the patient's lab results. Result diagrams: 10/06/20 02:12 10/06/20 02:12 Labs: Lab Results 10/06/20 10/06/20 10/06/20 Range/Units 02:08 02:12 02:12 WBC 5.0 (4.8-10.8) X10*3/uL RBC 2.62 L (4.60-5.80) X10*6/uL Hgb 8.5 L (14.0-18.0) g/dl Hct 24.5 L (42-52) % MCV 93.5 (80-98) fL MCH 32.4 (27.0-33.0) pg MCHC 34.7 (31.0-36.0) g/dl RDW 13.4 (11.0-16.0) % Plt Count 172 (160-400) X10*3/uL MPV 9.2 L (9.4-12.4) fL Immature Gran % (Auto) 0.4 (0.0-0.4) % Neut % (Auto) 52.9 (45-73) % Lymph % (Auto) 26.7 (20-40) % [place] % (Auto) 17.0 H (2-11) % Eos % (Auto) 2.6 (0-4) % Baso % (Auto) 0.4 (0-2) % Lymph # (Auto) 1.3 (1.2-4.9) X10*3/uL [place] # (Auto) 0.9 (0.1-1.2) X10*3/uL Eos # (Auto) 0.1 (0.0-0.4) X10*3/uL Baso # (Auto) 0.0 (0.0-0.2) X10*3/uL Abs Immat Gran (auto) 0.02 (0.00-0.03) X10*3/uL Absolute Neuts (auto) 2.6 (2.0-8.3) X10*3/uL Absolute Nucleated RBC 0.000 (0.0-0.012) X10*3/uL Nucleated RBC % (auto) 0.0 (0.0-0.2) /100WBC Sodium 131 L (135-145) mmol/L Potassium 4.0 (3.3-5.1) mmol/L Chloride 96 (96-108) mmol/L Carbon Dioxide 24 (22-29) mmol/L Anion Gap 15 (12-20) BUN 48 H (9-16) mg/dL Creatinine 7.49 H* (0.5-1.4) mg/dL Estim Creat Clear Calc 8.7 Estimated GFR 7 Random Glucose 113 (60-115) mg/dL Calcium 7.8 L (8.4-10.2) mg/dL Total Bilirubin 0.6 (0.0-1.0) mg/dL Direct Bilirubin 0.3 (0.0-0.5) mg/dL AST 36 (5-37) U/L ALT 18 (0-40) U/L Alkaline Phosphatase 121 H D (39-117) U/L Total Protein 6.0 L (6.5-8.0) g/dL Albumin 2.9 L (3.5-5.0) g/dL Lipase 38 (8-78) U/L COVID-19 (KATLIN) Negative (Negative) COVID-19 Clin Com See Note Discharge Plan Discharge Clinical Impression: Abdominal pain, ESRD on dialysis Patient Disposition: Home, Self-Care Instructions: Abdominal Pain (ED) Prescriptions: No Action azithromycin [Zithromax] 500 mg tablet 500 mg PO DAILY 5 Days Qty: 5 RF: 0 Referrals: Physician,Unknown [Primary Care Provider] - 2 days Stand Alone Forms: Against Medical Advice
[2020-10-06 02:00] VITALS: BP 142/78; PULSE 62; RESP 16; TEMP 36.3; O2SAT 96
[2020-10-06 02:19] LABS: Basophils Percent Auto 0.4 % (0-2); Eosinophils Absolute Auto 0.1 X10*3/uL (0.0-0.4); Eosinophils Percent Auto 2.6 % (0-4); Hematocrit 24.5 % (42-52); Hemoglobin 8.5 g/dl (14.0-18.0); Imm Gran Abs Auto 0.02 X10*3/uL (0.00-0.03); Imm Gran Pct Auto 0.4 % (0.0-0.4); Lymphocytes Absolute Auto 1.3 X10*3/uL (1.2-4.9); Lymphocytes Percent Auto 26.7 % (20-40); MANUAL DIFF FLAG NO; Mean Corpuscular HGB Conc 34.7 g/dl (31.0-36.0); Mean Corpuscular Hemoglobin 32.4 pg (27.0-33.0); Mean Corpuscular Volume 93.5 fL (80-98); Mean Platelet Volume 9.2 fL (9.4-12.4); Monocytes Absolute Auto 0.9 X10*3/uL (0.1-1.2); Neutrophils Absolute Auto 2.6 X10*3/uL (2.0-8.3); Neutrophils Percent Auto 52.9 % (45-73); Platelet Count 172 X10*3/uL (160-400); Red Blood Count 2.62 X10*6/uL (4.60-5.80); Red Cell Distribution Width 13.4 % (11.0-16.0)
[2020-10-06 02:35] LABS: COVID-19 Test Negative (Negative); IDNOW Serial# 9DD0AD1C
[2020-10-06 03:09] LABS: Alanine Aminotransferase 18 U/L (0-40); Albumin Level 2.9 g/dL (3.5-5.0); Alkaline Phosphatase 121 U/L (39-117); Anion Gap 15 (12-20); Aspartate Amino Transferase 36 U/L (5-37); Bilirubin Direct 0.3 mg/dL (0.0-0.5); Bilirubin Total 0.6 mg/dL (0.0-1.0); Blood Urea Nitrogen 48 mg/dL (9-16); Calcium 7.8 mg/dL (8.4-10.2); Carbon Dioxide 24 mmol/L (22-29); Chloride 96 mmol/L (96-108); Creatinine Clr Calc Pharmacy 8.7; Estimated Glomerular Filt Rate 7; Glucose Random 113 mg/dL (60-115); Lipase 38 U/L (8-78); Sodium 131 mmol/L (135-145)
[2020-10-06 04:00] VITALS: BP 138/72; PULSE 66; RESP 16; O2SAT 98
--- NOTE | 2020-10-06 04:31 | PC.NURSE ---
this RN spoke with patient, asked him where he goes for Dialysis treatment. patient stated I don't know multiple times. This RN reviewed previous notes and spoke with Ivonne Blevins (patient's primary contact), states that he goes to [facility] in [place] [facility] ([facility]). Attempted to contact [facility] to confirm, however, no answer on the phone. Will try again. Pt supposed to have dialysis at 5am on Tuesdays, , and Saturdays.
--- NOTE | 2020-10-06 05:07 | PC.NURSE ---
PATIENT REFUSED AMBULANCE TRANSFER TO DIALYSIS CENTER IN [place] UPON EMS ARRIVAL. AT BEDSIDE, DISCUSSED RISK OF NOT GOING TO DIALYSIS AND THAT PATIENT WAS PREVIOUSLY COMPLIANT WITH PLAN TO PROVIDE TRANSPORTATION TO DIALYSIS PRIOR TO EMS ARRIVAL. PT NOW REFUSING, BUT ASKED EMS CAN I GET A RIDE HOME WITH YOU GUYS? PATIENT TO FIND OWN TRANSPORTATION HOME. REFUSED TRANSPORT AGAINST MEDICAL ADVICE.
--- NOTE | 2020-10-06 05:23 | PC.NURSE ---
THIS RN SPOKE WITH NICK OLIVIER OVER THE PHONE, THEN SPOKE WITH HIS SON (KAREY GALLARDO @ [phone]). PER KAREY, HE IS UNABLE TO PROVIDE A RIDE TO SECURITIES COMPLIANCE EXAMINER THE PATIENT UNTIL SOMETIME BETWEEN 8 AND 8:30AM . FAMILY AWARE OF PATIENT REFUSING TRANSPORTATION TO DIALYSIS.
--- NOTE | 2020-10-06 05:43 | PC.NURSE ---
Addendum entered by Virginia Jain 10/06/20 05:56: BIOINFORMATICS RESEARCH TECHNICIAN AT BEDSIDE DURING ALL INTERACTIONS. Original Note: PATIENT NOW REQUESTING TO BE GIVEN RIDE TO DIALYSIS. THIS RN AND TELLY RN (CHARGE) EXPLAINED THAT TRANSPORTATION WAS ALREADY OFFERED AND REFUSED. TELLY BELTRAN EXPLAINED TO PATIENT THAT IF EMS IS CONTACTED AGAIN, THAT HE WILL BE TRANSPORTED TO DIALYSIS AND NOT TO HOME. PT REFUSES TO ACCEPT RIDE HOME WITH KAREY GALLARDO PREVIOUSLY DOCUMENTED, BUT IS NOW ACCEPTING TRANSFER TO DIALYSIS. SPOKE WITH DIALYSIS CENTER IN [place], THEY WILL STILL ACCEPT PATIENT.
== END 2020-10-06 06:33 | disposition home or self-care (01) ==
PROVIDERS: Emergency Provider Emergency Medicine
DX: R10.9 Unspecified abdominal pain (principal); N18.6 End stage renal disease; Z99.2 Dependence on renal dialysis; Z79.899 Other long term (current) drug therapy; Z20.822 Contact with and (suspected) exposure to COVID-19; Z87.891 Personal history of nicotine dependence
CPT/HCPCS: 36415; 80048; 80076; 83690; 85025; 87635; 99283; 99284

== ENCOUNTER 2020-11-30 06:17 | Emergency (ER) | payer MEDICARE, MEDICAID, SELFPAY ==
[2020-11-30 06:31] VITALS: BP 180/91; PULSE 71; RESP 16; TEMP 36.6; O2SAT 98; BMI 29.9
--- NOTE | 2020-11-30 06:54 | ED.GENADULT ---
HPI - General Adult General Chief complaint: General Medical Stated complaint: missed dialysis Time Seen by Provider: 11/30/20 06:47 History of Present Illness HPI narrative: This is a very pleasant 70 years old diabetic patient who call 911 because in need of dialysis. He has no symptoms he denies any chest pain, shortness of breath he missed dialysis on Thursday and . Denies also any fever. Onset (ago): day(s) (One) Severity: moderate Treatments prior to arrival: none Related Data Previous Rx's Medication Instructions Recorded azithromycin [Zithromax] 500 mg PO DAILY 5 Days #5 tab 09/11/20 valsartan 160 mg tablet 320 mg PO DAILY #180 tab 10/31/20 Allergies Allergy/AdvReac Type Severity Reaction Status Date / Time No Known Allergies Allergy Mild N/A Verified 08/10/20 02:42 Review of Systems Review of Systems: Yes all other systems are reviewed and are negative Cardiovascular: Cardiovascular: Reports no additional cardiovascular complaints Respiratory: Respiratory: Reports no additional respiratory complaints Gastrointestinal: Gastrointestinal: Reports no additional gastrointestinal complaints and Denies abdominal pain Musculoskeletal: Musculoskeletal: Reports no additional musculoskeletal complaints [facility] Past Medical History Medical History CKD (chronic kidney disease) Dialysis patient Social History Social History Alcohol intake: former Smoking Status: Former smoker Advance Directives: No Advance Directives Information Provided: No Physical Exam Vital Signs: Vital Signs: Last Vital Signs Temp 97.8 F 11/30/20 06:31 Pulse 71 11/30/20 06:31 Resp 16 11/30/20 06:31 BP 180/91 H 11/30/20 06:31 Pulse Ox 98 11/30/20 06:31 Body Mass Index 29.9 Const: Other: Patient is awake and alert in not acute distress, very comfortable in the stretcher General: cooperative and no acute distress Orientation/consciousness: oriented to person, oriented to place, oriented to time and patient oriented x3 Eyes: Other: There is swelling in the left eye which is chronic (He is followed by Ophthalmology) Neck: Neck: Yes normal visual inspection and Yes full ROM Chest: Chest palpation & inspection: normal inspection of the chest Resp: Auscultation: clear to auscultation bilaterally Cardio: Jugular venous distension: no JVD Rate: regular rate Skin: General skin exam: no rashes or lesions noted Neuro: General: oriented to person, oriented to place, oriented to time and patient oriented x3 Extrem: General: Yes normal to inspection Psych: Appearance: grossly normal Course Reevaluation(s) Reevaluation #1: A slot in the dialysis in [facility] was arranged a by a RN, patient will be transported by EMS to the dialysis unit, I also placed a call to the hourly caregiver construction secretary as now no call was return . I do not think this patient needs a chest x-ray has no shortness of breath; I do not think he needs EKG has no chest pain; and I do not think need to do any labs he is asymptomatic Time: 07:17 Reevaluation #2: Ambulance here to take the patient to dialysis, the patient remained asymptomatic.I spoke with Dr Dio pelayo Time: 07:52 Medical Decision Making MDM Narrative Medical decision making narrative: This is a 70 years old male who was brought to the emergency department because in need of dialysis the patient is asymptomatic we will contact Nephrology and dialysis unit to see if they can accommodate the patient for dialysis today. He appeared comfortable he is not of fluid overload the he is not in respiratory distress, sat 98% room air Discharge Plan Discharge Clinical Impression: ESRD on dialysis Patient Disposition: Xfer Other Transfer Details: Dyalisis Unit Instructions: End Stage Kidney Disease (ED) Prescriptions: No Action valsartan 160 mg tablet 320 mg PO DAILY Qty: 180 RF: 3 azithromycin [Zithromax] 500 mg tablet 500 mg PO DAILY 5 Days Qty: 5 RF: 0 Interventions: ED Discharge Assessment Last Done: 11/30/20 07:47 Discharge Date/Time: 11/30/20 07:50
--- NOTE | 2020-11-30 07:45 | PC.NURSE ---
chair martha called to take the pt to dialysis pt reports no complaint at this time
== END 2020-11-30 07:50 | disposition other institution (70) ==
PROVIDERS: Emergency Provider Emergency Medicine
DX: N18.6 End stage renal disease (principal); Z99.2 Dependence on renal dialysis
CPT/HCPCS: 99283; 99285

== ENCOUNTER 2020-12-17 22:10 | Emergency (ER) | payer MEDICARE, MEDICAID, SELFPAY ==
--- NOTE | ~2020-12-17 | CT_ITS ---
EXAMINATION: CT ABDOMEN AND PELVIS WITHOUT CONTRAST CLINICAL INFORMATION: Left lower quadrant pain COMPARISON: 05/29/2020 TECHNIQUE: Multidetector volumetric imaging was performed from the superior aspect of the liver through the pubic symphysis. Sagittal and coronal reformatted images were obtained on the technologist's workstation. This CT examination was performed using dose optimization techniques as appropriate, variously including the following: *Automated exposure control *Adjustment of mA and/or kV according to patient size (this includes techniques or standardized protocols for targeted exams where dose is matched to indication/reason for exam; i.e. extremities or head) *Use of iterative reconstruction technique DLP: 527 mGy-cm FINDINGS: LUNG BASES: Similar appearance of a right basilar opacity which likely represents rounded atelectasis. Chronic appearing right sided pleural effusion with associated nodularity in the pleural fluid. Enlarged heart with coronary artery calcification. LIVER, GALLBLADDER, AND BILIARY TREE: The liver is normal in size with nodular Contour. There is normal attenuation. No focal hepatic lesion or biliary ductal dilatation is present. The gallbladder is normally distended with a stone noted. No gallbladder wall thickening or pericholecystic fluid.. PANCREAS: Unremarkable. SPLEEN: Unremarkable. ADRENAL GLANDS: Unremarkable. KIDNEYS AND URETERS: Atrophic kidneys with cortical thinning. Bilateral renal cysts. There is an exophytic right upper pole hyperdense lesion which measures 0.8 cm. BLADDER: Partially distended with no gross acute abnormality. GASTROINTESTINAL TRACT: The stomach is unremarkable. Normal caliber small bowel. No obstruction. Colonic diverticulosis noted. No diverticulitis. Mild stranding seen in the fat near the rectum, similar to previous. Anastomotic suture line in the mid abdomen anteriorly. No free air. ABDOMINAL WALL: No significant hernia is appreciated. There is chronic appearing irregularity of the right hip with absence of the femoral head. Soft tissue seen in this evaluated space. This is unchanged. There is a small joint effusion at the left hip noted. LYMPH NODES: Normal. VASCULAR: Normal caliber aorta with mild atherosclerotic calcification. PELVIC VISCERA: The prostate and seminal vesicles are unremarkable. OSSEOUS STRUCTURES: Diffuse sclerotic appearance of the spine, possibly associated with renal osteodystrophy. Multilevel degenerative changes. 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 Multifocal lucency throughout the pelvis, particularly in the region of the right acetabulum. This is unchanged. CT/CT abdomen pelvis wo con IMPRESSION: Colonic diverticulosis without diverticulitis. There is mild stranding of the fat surrounding the rectum. Cannot exclude proctitis. This appearance is similar to prior from May 2020. Nodularity of the hepatic contour. This could represent cirrhosis. Atrophic kidneys. Abnormal appearance of the bone suggestive of renal osteodystrophy. Chronic changes of the right hip. Left hip joint effusion noted.
--- NOTE | 2020-12-17 22:31 | ED_ITS ---
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 Mode of arrival: EMS Limitations: other (poor historian) History of Present Illness MD elicited complaint: abdominal pain Onset (ago): day(s) (1) Pain Consistency: constant Location: LLQ Severity: moderate Quality: cramping Radiation: none Migration to: no migration Exacerbating factors: nothing Relieving factors: nothing Context: possible food poisoning (states it started hurting after he was fed mary akfast this AM) Associated symptoms: other (loss of appetite) Related Data Previous Rx's Medication Instructions Recorded azithromycin [Zithromax] 500 mg PO DAILY 5 Days #5 tab 09/11/20 valsartan 160 mg tablet 320 mg PO DAILY #180 tab 10/31/20 metronidazole [Flagyl] 500 mg PO Q12H 7 Days #14 tab 12/18/20 Allergies Allergy/AdvReac Type Severity Reaction Status Date / Time No Known Allergies Allergy Mild N/A Verified 08/10/20 02:42 Review of Systems Review of Systems Constitutional : No Weight loss, No Fever, No Chills ENT/Mouth : No sore throat, No Rhinorrhea Eyes: No Swelling, No Redness Cardiovascular : No Chest Pain, No SOB, NoEdema Respiratory : No Cough, No Sputum, No Wheezing Gastrointestinal : no Nausea, no Vomiting, no Diarrhea, positive abdominal Pain, No Hematochezia, No Melena Genitourinary : No Dysuria, No Urinary Frequency, No Hematuria, No Urgency Musculoskeletal : No joint pain, No Myalgias, No Joint Swelling Skin : No Skin Lesions, No rash Neuro : No Weakness, No Numbness, No Dizziness, No Headache Psych : No Anxiety/Panic, No Depression Heme/Lymph: No Bruising, No Lymphadenopathy Endocrine : No Polyuria, No Polydipsia All other systems reviewed and are negative. Physical Exam Vital Signs: Vital Signs: Last Vital Signs Temp 98.4 F 12/17/20 23:04 Pulse 88 12/17/20 23:12 Resp 21 H 12/17/20 23:12 BP 125/55 L 12/17/20 23:12 Pulse Ox 95 12/17/20 23:12 Body Mass Index 25.7 Appearance: Alert. Oriented X3. No acute distress. Eyes: Pupils equal, round and reactive to light. ENT: Pharynx normal. Neck: Normal inspection. Neck supple. CVS: Normal heart rate and rhythm. Pulses normal. Respiratory: No respiratory distress. Breath sounds normal. Abdomen: Soft and moderate ttp LLQ no rebound or guarding Skin: Skin warm and dry. Normal skin color. Normal skin turgor. Extremities: 1 to 2+ pitting lower extremity edema. No calf ttp Neuro: Oriented X 3. No motor deficit. No sensory deficit. Course Course Course Narrative: ?proctitis but CT scan negative check of L hip no overyling infection, full ROM no pain doubt septic joint, will start on flagyl and DC home for possible proctitis chronic low Na MDM - Abdominal Pain MDM Narrative Medical decision making narrative: 70 yo male with ESRD on HD T S, chronic L eye neoplasm, CVA, CAD here with 1 day of LLQ pain no n/v/d states it started after eating breakfast, at this time will need labs, CT scan for diverticulitis, PO pain medications, dispo per results and findings. Lab Data Result diagrams: 12/17/20 23:44 12/17/20 23:44 Labs: Lab Results 12/17/20 12/17/20 12/17/20 Range/Units 23:28 23:44 23:44 WBC 4.9 (4.8-10.8) X10*3/uL RBC 3.28 L D (4.60-5.80) X10*6/uL Hgb 9.9 L (14.0-18.0) g/dl Hct 28.7 L (42-52) % MCV 87.5 (80-98) fL MCH 30.2 (27.0-33.0) pg MCHC 34.5 (31.0-36.0) g/dl RDW 12.7 (11.0-16.0) % Plt Count 180 (160-400) X10*3/uL MPV 9.9 (9.4-12.4) fL Immature Gran % (Auto) 0.2 (0.0-0.4) % Neut % (Auto) 43.2 L (45-73) % Lymph % (Auto) 34.1 (20-40) % [place] % (Auto) 14.1 H (2-11) % Eos % (Auto) 7.8 H (0-4) % Baso % (Auto) 0.6 (0-2) % Lymph # (Auto) 1.7 (1.2-4.9) X10*3/uL [place] # (Auto) 0.7 (0.1-1.2) X10*3/uL Eos # (Auto) 0.4 (0.0-0.4) X10*3/uL Baso # (Auto) 0.0 (0.0-0.2) X10*3/uL Abs Immat Gran (auto) 0.01 (0.00-0.03) X10*3/uL Absolute Neuts (auto) 2.1 (2.0-8.3) X10*3/uL Absolute Nucleated RBC 0.000 (0.0-0.012) X10*3/uL Nucleated RBC % (auto) 0.0 (0.0-0.2) /100WBC Hold Blue Top SEE NOTE Sodium 127 L (135-145) mmol/L Potassium 4.4 (3.3-5.1) mmol/L Chloride 89 L (96-108) mmol/L Carbon Dioxide 27 (22-29) mmol/L Anion Gap 15 (12-20) BUN 43 H (9-16) mg/dL Creatinine 6.74 H* (0.5-1.4) mg/dL Estim Creat Clear Calc 10.0 Estimated GFR 8 Random Glucose 126 H (60-115) mg/dL Calcium 8.7 D (8.4-10.2) mg/dL Magnesium 1.5 L (1.6-2.6) mg/dL Total Bilirubin 1.0 (0.0-1.0) mg/dL Direct Bilirubin 0.3 (0.0-0.5) mg/dL AST 19 D (5-37) U/L ALT 8 (0-40) U/L Alkaline Phosphatase 139 H (39-117) U/L Total Protein 6.9 (6.5-8.0) g/dL Albumin 3.4 L (3.5-5.0) g/dL Lipase 24 (8-78) U/L ECG Data Attestation: I personally reviewed and interpreted this ECG as follows: ECG interpretation date: 04/19/21 ECG interpretation time: 23:08 Interpretation: Rate: 90 Rhythm: NSR wth PVCs [place]: left Normal P waves. Normal CINDY. Normal QRS complex. ST T wave : nonspecific, no MARTIN qTC: normal prior studies: no acute ischemia The study has been interpreted contemporaneously by me. . Discharge Plan Discharge Clinical Impression: Proctitis Abdominal pain Qualifiers: Abdominal location: left lower quadrant Qualified Code(s): R10.32 - Left lower quadrant pain Patient Disposition: Home, Self-Care Instructions: Proctitis (ED), Abdominal Pain (ED) Additional Instructions: return to ED for any worsening symptoms or concerns Prescriptions: New metronidazole [Flagyl] 500 mg tablet 500 mg PO Q12H 7 Days Qty: 14 RF: 0 No Action valsartan 160 mg tablet 320 mg PO DAILY Qty: 180 RF: 3 azithromycin [Zithromax] 500 mg tablet 500 mg PO DAILY 5 Days Qty: 5 RF: 0 Referrals: Physician,None [Primary Care Provider] - 2 days Print Language: Turkish [facility] Past Medical History Attestation statement: The following information was validated with the patient. Medical History (Updated 12/18/20 @ 00:42 by Annette Mcmahan DO) Acute CVA (cerebrovascular accident) Atypical chest pain AV fistula CAD (coronary artery disease) CKD (chronic kidney disease) Dialysis patient GERD (gastroesophageal reflux disease) Pneumonia Surgical History (Updated 12/17/20 @ 22:37 by Annette Mcmahan DO) History of hip surgery Social History Social History Alcohol intake: former Smoking Status: Former smoker Advance Directives: No
--- NOTE | 2020-12-17 22:40 | ECG_ITS ---
Test Reason : ABD PAIN Blood Pressure : / mmHG Vent. Rate : 090 BPM Atrial Rate : 090 BPM P-R Int : 152 ms QRS Dur : 086 ms QT Int : 368 ms P-R-T Axes : 045 -08 075 degrees QTc Int : 450 ms Sinus rhythm with frequent Premature ventricular complexes Inferior infarct , age undetermined Abnormal ECG When compared with ECG of 10-AUG-2020 00:20, Premature ventricular complexes are now Present Premature atrial complexes are no longer Present Referred By: Annette Mcmahan Electronically Signed By:Yoseph Goldstein
[2020-12-17 23:04] VITALS: BP 150/76; BP 152/78; PULSE 56; PULSE 91; RESP 23; TEMP 36.9; O2SAT 94; O2SAT 97; BMI 25.7
[2020-12-17 23:12] VITALS: BP 125/55; PULSE 88; RESP 21; O2SAT 95
[2020-12-17] MEDS: oxyCODONE HCl Immed Release 5 MG TABLET PO (23:24)
[2020-12-17 23:52] LABS: Basophils Percent Auto 0.6 % (0-2); Eosinophils Absolute Auto 0.4 X10*3/uL (0.0-0.4); Eosinophils Percent Auto 7.8 % (0-4); Hematocrit 28.7 % (42-52); Hemoglobin 9.9 g/dl (14.0-18.0); Imm Gran Abs Auto 0.01 X10*3/uL (0.00-0.03); Imm Gran Pct Auto 0.2 % (0.0-0.4); Lymphocytes Absolute Auto 1.7 X10*3/uL (1.2-4.9); Lymphocytes Percent Auto 34.1 % (20-40); MANUAL DIFF FLAG NO; Mean Corpuscular HGB Conc 34.5 g/dl (31.0-36.0); Mean Corpuscular Hemoglobin 30.2 pg (27.0-33.0); Mean Corpuscular Volume 87.5 fL (80-98); Mean Platelet Volume 9.9 fL (9.4-12.4); Monocytes Absolute Auto 0.7 X10*3/uL (0.1-1.2); Monocytes Percent Auto 14.1 % (2-11); Neutrophils Absolute Auto 2.1 X10*3/uL (2.0-8.3); Neutrophils Percent Auto 43.2 % (45-73); Platelet Count 180 X10*3/uL (160-400); Red Blood Count 3.28 X10*6/uL (4.60-5.80); Red Cell Distribution Width 12.7 % (11.0-16.0); White Blood Count 4.9 X10*3/uL (4.8-10.8)
[2020-12-18 00:26] LABS: Alanine Aminotransferase 8 U/L (0-40); Albumin Level 3.4 g/dL (3.5-5.0); Alkaline Phosphatase 139 U/L (39-117); Anion Gap 15 (12-20); Aspartate Amino Transferase 19 U/L (5-37); Bilirubin Direct 0.3 mg/dL (0.0-0.5); Blood Urea Nitrogen 43 mg/dL (9-16); Calcium 8.7 mg/dL (8.4-10.2); Carbon Dioxide 27 mmol/L (22-29); Chloride 89 mmol/L (96-108); Estimated Glomerular Filt Rate 8; Glucose Random 126 mg/dL (60-115); Lipase 24 U/L (8-78); Magnesium 1.5 mg/dL (1.6-2.6); Potassium 4.4 mmol/L (3.3-5.1); Sodium 127 mmol/L (135-145); Total Protein 6.9 g/dL (6.5-8.0)
[2020-12-18 01:07] VITALS: BP 152/77; PULSE 87; RESP 14; O2SAT 94
[2020-12-18] MEDS: metroNIDAZOLE 500 MG TABLET PO (01:10)
== END 2020-12-18 01:41 | disposition home or self-care (01) ==
PROVIDERS: Emergency Provider Emergency Medicine
DX: K62.89 Other specified diseases of anus and rectum (principal); R10.32 Left lower quadrant pain; I25.10 Atherosclerotic heart disease of native coronary artery without angina pectoris; Z87.891 Personal history of nicotine dependence; Z79.899 Other long term (current) drug therapy
CPT/HCPCS: 36415; 74176; 80048; 80076; 83690; 83735; 85025; 93005; 99284

== ENCOUNTER 2020-12-25 07:04 | Inpatient (IN) | payer MEDICARE, MEDICAID, SELFPAY ==
[2020-12-25] VITALS (9 sets, daily range): BP systolic 131–202; BP diastolic 72–101; PULSE 76–93; RESP 16–19; TEMP 36.3–36.9; O2SAT 82–98; BMI 27.4
--- NOTE | ~2020-12-25 | CT_ITS ---
EXAMINATION: CT ABDOMEN AND PELVIS WITHOUT CONTRAST CLINICAL INFORMATION: 70-year-old male with lower abdominal pain COMPARISON: CT abdomen pelvis December 18, 2020 TECHNIQUE: Multidetector volumetric imaging was performed from the superior aspect of the liver through the pubic symphysis. Sagittal and coronal reformatted images were obtained on the technologist's workstation. This CT examination was performed using dose optimization techniques as appropriate, variously including the following: *Automated exposure control *Adjustment of mA and/or kV according to patient size (this includes techniques or standardized protocols for targeted exams where dose is matched to indication/reason for exam; i.e. extremities or head) *Use of iterative reconstruction technique DLP: 600 mGy-cm FINDINGS: Visualized lung bases again demonstrate a chronic appearing right-sided pleural effusion with associated calcifications and soft tissue nodularity. Rounded atelectasis of the right lung base is also again noted. There has been interval development of a small left-sided pleural effusion with overlying airspace disease. Partially visualized enlarged heart. The liver is normal in size but again demonstrates a nodular contour. Tiny gallstone again noted within an otherwise unremarkable appearing gallbladder. Mild fatty atrophy of the pancreas. 5 mm hypodensity of the pancreatic head is nonspecific. The spleen is stable. The adrenal glands are unremarkable. Both kidneys are atrophic and demonstrate bilateral cysts. Some hyperdense renal structures are also noted which are nonspecific. There is no hydronephrosis of either kidney. Normal caliber loops of small and large bowel. Similar anastomotic suture line within the right abdomen. Colonic diverticulosis without CT evidence to suggest active diverticulitis. Nonaneurysmal abdominal aorta which demonstrates moderate atherosclerotic disease. Retroaortic left renal vein. The bladder is decompressed and therefore not accurately evaluated. Prostate gland is mildly enlarged. No gross free pelvic fluid. Suspected renal osteodystrophy appearance of the bones. Similar old posttraumatic changes of the right hip with dysplasia. Several lytic foci are again noted throughout the pelvis bone. CT/CT abdomen pelvis wo con IMPRESSION: 1. Stable CT appearance of the abdomen and pelvis with chronic changes but no acute abnormality identified. 2. Interval development of a small left-sided pleural effusion with overlying airspace disease. 3. Chronic appearing complex right-sided pleural effusion is stable.
--- NOTE | ~2020-12-25 | XR_ITS ---
EXAMINATION: XR CHEST CLINICAL INFORMATION: Low oxygen saturation. Ms. hemodialysis. COMPARISON: Chest x-ray September 10, 2020 TECHNIQUE: Frontal view of the chest was obtained. FINDINGS: Stable cardiomegaly. Lungs are adequately aerated. Known chronic right-sided pleural effusion again appreciated. Mild diffuse increase in interstitial prominence bilaterally. Blunting of left costophrenic angle consistent with a small pleural effusion. XR/XR chest 1V IMPRESSION: Radiographic findings most suggestive of mild CHF with interval development of left-sided pleural effusion.
--- NOTE | 2020-12-25 07:18 | ECG_ITS ---
Test Reason : ABDOMINAL PAIN Blood Pressure : / mmHG Vent. Rate : 090 BPM Atrial Rate : 090 BPM P-R Int : 152 ms QRS Dur : 086 ms QT Int : 376 ms P-R-T Axes : 023 -26 054 degrees QTc Int : 459 ms Normal sinus rhythm Inferior infarct (cited on or before 17-DEC-2020) Abnormal ECG When compared with ECG of 17-DEC-2020 22:58, Premature ventricular complexes are no longer Present Referred By: Annette Mcmahan Electronically Signed By:LEONOR CAMARILLO MD
--- NOTE | 2020-12-25 07:19 | ED.ABDPAIN ---
HPI - Abdominal Pain General Chief Complaint: Abdominal Pain Stated Complaint: BODYACHES Time Seen by Provider: 12/25/20 07:17 Source: patient, EMS, old records reviewed and interpreter for the deaf Mode of arrival: EMS Limitations: other (poor historian) History of Present Illness HPI narrative: 70 yo male with ESRD T Th S, CVA, L eye mass, pneumonia, HTN here with abdominal pain no other associated symptoms since this AM - just seen on 12/17 started on flagyl for abdominal pain r/o diverticulitis, states he got better but pain came back this AM and it feels different than his recent visit. MD elicited complaint: abdominal pain Onset (ago): day(s) (this AM) Pain Consistency: constant Location: suprapubic Severity: moderate Quality: cramping Radiation: none Migration to: no migration Exacerbating factors: nothing Relieving factors: nothing Associated symptoms: denies other symptoms Related Data Home Medications Medication Instructions Recorded Confirmed B complex with C 20-folic acid 1 cap PO DAILY 12/25/20 12/25/20 [Triphrocaps] aspirin 1 tab PO QPM 12/25/20 12/25/20 calcium acetate(phosphat bind) 1 cap PO DAILY 12/25/20 12/25/20 clonazepam 0.5 - 1 mg PO QID PRN 12/25/20 12/25/20 glecaprevir-pibrentasvir [Mavyret] 3 tab PO DAILY 12/25/20 12/25/20 hydralazine 1 tab PO TID 12/25/20 12/25/20 metoprolol succinate 1 tab PO QAM 12/25/20 12/25/20 metronidazole 1 tab PO Q12H 12/25/20 12/25/20 paroxetine HCl 1 tab PO QAM 12/25/20 12/25/20 polyvinyl alcohol [Artificial 1 - 2 drp OPHTHALMIC-LEFT QID PRN 12/25/20 12/25/20 Tears (polyvin alc)] tramadol 1 tab PO Q12H PRN 12/25/20 12/25/20 valsartan 2 tab PO QAM 12/25/20 12/25/20 Allergies Allergy/AdvReac Type Severity Reaction Status Date / Time No Known Allergies Allergy Mild N/A Verified 08/10/20 02:42 Review of Systems Review of Systems Constitutional : No Weight loss, No Fever, No Chills ENT/Mouth : No sore throat, No Rhinorrhea Eyes: No Swelling, No Redness Cardiovascular : No Chest Pain, No SOB, NoEdema Respiratory : No Cough, No Sputum, No Wheezing Gastrointestinal : no Nausea, no Vomiting, no Diarrhea, positive abdominal Pain, No Hematochezia, No Melena, no constipation, pos flatus Genitourinary : No Dysuria, No Urinary Frequency, No Hematuria, No Urgency Musculoskeletal : No joint pain, pos Myalgias, No Joint Swelling Skin : No Skin Lesions, No rash Neuro : No Weakness, No Numbness, No Dizziness, No Headache Psych : No Anxiety/Panic, No Depression Heme/Lymph: No Bruising, No Lymphadenopathy Endocrine : No Polyuria, No Polydipsia All other systems reviewed and are negative. Physical Exam Vital Signs: Vital Signs: Last Vital Signs Temp 98.4 F 12/25/20 07:17 Pulse 88 12/25/20 08:00 Resp 18 12/25/20 08:00 BP 180/98 H 12/25/20 08:00 Pulse Ox 97 12/25/20 09:33 Body Mass Index 27.4 Appearance: Alert. Oriented X3. No acute distress. Eyes: Pupils equal, round and reactive to light. ENT: Pharynx normal. L eye swollen and proptotic - chronic Neck: Normal inspection. Neck supple. CVS: Normal heart rate and rhythm. Pulses normal. Respiratory: No respiratory distress. Breath sounds normal. Abdomen: Soft and no distention, c/o pain RLQ and suprapubic Skin: Skin warm and dry. Normal skin color. Normal skin turgor. Extremities: No lower extremity edema. upper extremity swelling bilaterally No calf ttp Neuro: Oriented X 3. No motor deficit. No sensory deficit. Course Course Course Narrative: patient c/o shortness of breath but he is in mid 80s on RA denies CP suspect volume overload and need for HD no findings on CT scan other than fluid overload, attempting to see if CM can get him into HD today doing fine on 2L NC jsut needs volume taken off, CM will made HD aware of supplemental O2 needs (suspect he will do fine post volume removal) unable to get patient into HD today, will discuss with renal and admit he is hypoxic and I cannot send him out without dialysis call back from [facility] nephrology aware and will get patient on HD today MDM - Abdominal Pain MDM Narrative Medical decision making narrative: 70 yo male with ESRD T Th S, CVA, L eye mass, pneumonia, HTN here with abdominal pain no other associated symptoms since this AM - just seen on 12/17 started on flagyl for abdominal pain r/o diverticulitis, states he got better but pain came back this AM and it feels different than his recent visit reprots no n/v/d and states he is having normal BMs and + flatus at this time given his age and risk factors will obtain labs, EKG, CT scan for obstruction, PO pain medications ordered, dispo per results and findings. Lab Data Result diagrams: 12/25/20 07:43 12/25/20 07:42 Labs: Lab Results 12/25/20 12/25/20 12/25/20 Range/Units 07:39 07:42 07:43 WBC 3.8 L (4.8-10.8) X10*3/uL RBC 3.06 L (4.60-5.80) X10*6/uL Hgb 9.0 L (14.0-18.0) g/dl Hct 27.0 L (42-52) % MCV 88.2 (80-98) fL MCH 29.4 (27.0-33.0) pg MCHC 33.3 (31.0-36.0) g/dl RDW 13.2 (11.0-16.0) % Plt Count TNP MPV Not Reportable Immature Gran % (Auto) 0.3 (0.0-0.4) % Neut % (Auto) 55.6 (45-73) % Lymph % (Auto) 24.3 (20-40) % [place] % (Auto) 12.1 H (2-11) % Eos % (Auto) 6.6 H (0-4) % Baso % (Auto) 1.1 (0-2) % Lymph # (Auto) 0.9 L (1.2-4.9) X10*3/uL [place] # (Auto) 0.5 (0.1-1.2) X10*3/uL Eos # (Auto) 0.3 (0.0-0.4) X10*3/uL Baso # (Auto) 0.0 (0.0-0.2) X10*3/uL Abs Immat Gran (auto) 0.01 (0.00-0.03) X10*3/uL Absolute Neuts (auto) 2.1 (2.0-8.3) X10*3/uL Absolute Nucleated RBC 0.000 (0.0-0.012) X10*3/uL Nucleated RBC % (auto) 0.0 (0.0-0.2) /100WBC Smear Tech's Comments VERIFIED PT (10.8-13.0) SEC INR (0.9-1.1) APTT (24.1-38.0) SEC Sodium 135 (135-145) mmol/L Potassium 3.9 (3.3-5.1) mmol/L Chloride 93 L (96-108) mmol/L Carbon Dioxide 28 (22-29) mmol/L Anion Gap 18 (12-20) BUN 47 H (9-16) mg/dL Creatinine 7.46 H* (0.5-1.4) mg/dL Estim Creat Clear Calc 9.0 Estimated GFR 7 Random Glucose 121 H (60-115) mg/dL Calcium 9.2 (8.4-10.2) mg/dL Magnesium 1.6 (1.6-2.6) mg/dL Total Bilirubin 0.8 (0.0-1.0) mg/dL Direct Bilirubin 0.2 (0.0-0.5) mg/dL AST 25 (5-37) U/L ALT < 6 (0-40) U/L Alkaline Phosphatase 116 (39-117) U/L Total Protein 7.1 (6.5-8.0) g/dL Albumin 3.3 L (3.5-5.0) g/dL Lipase 41 (8-78) U/L COVID-19 (KATLIN) Negative (Negative) COVID-19 Clin Com See Note 12/25/20 Range/Units 09:16 WBC (4.8-10.8) X10*3/uL RBC (4.60-5.80) X10*6/uL Hgb (14.0-18.0) g/dl Hct (42-52) % MCV (80-98) fL MCH (27.0-33.0) pg MCHC (31.0-36.0) g/dl RDW (11.0-16.0) % Plt Count MPV Immature Gran % (Auto) (0.0-0.4) % Neut % (Auto) (45-73) % Lymph % (Auto) (20-40) % [place] % (Auto) (2-11) % Eos % (Auto) (0-4) % Baso % (Auto) (0-2) % Lymph # (Auto) (1.2-4.9) X10*3/uL [place] # (Auto) (0.1-1.2) X10*3/uL Eos # (Auto) (0.0-0.4) X10*3/uL Baso # (Auto) (0.0-0.2) X10*3/uL Abs Immat Gran (auto) (0.00-0.03) X10*3/uL Absolute Neuts (auto) (2.0-8.3) X10*3/uL Absolute Nucleated RBC (0.0-0.012) X10*3/uL Nucleated RBC % (auto) (0.0-0.2) /100WBC Smear Tech's Comments PT 12.2 (10.8-13.0) SEC INR 1.0 (0.9-1.1) APTT 31.7 (24.1-38.0) SEC Sodium (135-145) mmol/L Potassium (3.3-5.1) mmol/L Chloride (96-108) mmol/L Carbon Dioxide (22-29) mmol/L Anion Gap (12-20) BUN (9-16) mg/dL Creatinine (0.5-1.4) mg/dL Estim Creat Clear Calc Estimated GFR Random Glucose (60-115) mg/dL Calcium (8.4-10.2) mg/dL Magnesium (1.6-2.6) mg/dL Total Bilirubin (0.0-1.0) mg/dL Direct Bilirubin (0.0-0.5) mg/dL AST (5-37) U/L ALT (0-40) U/L Alkaline Phosphatase (39-117) U/L Total Protein (6.5-8.0) g/dL Albumin (3.5-5.0) g/dL Lipase (8-78) U/L COVID-19 (KATLIN) (Negative) COVID-19 Clin Com ECG Data Attestation: I personally reviewed and interpreted this ECG as follows: ECG interpretation date: 12/25/20 ECG interpretation time: 07:34 Interpretation: Rate: 90 Rhythm: NSR [place]: left Normal P waves. Normal CINDY. Normal QRS complex. ST T wave : normal no MARTIN, artifact qTC: normal prior studies: no acute ischemia The study has been interpreted contemporaneously by me. . Discharge Plan Discharge Clinical Impression: ESRD on dialysis, Hypoxia Abdominal pain Qualifiers: Abdominal location: right lower quadrant Qualified Code(s): R10.31 - Right lower quadrant pain Edema Qualifiers: Edema type: generalized Qualified Code(s): R60.1 - Generalized edema Pulmonary edema Qualifiers: Chronicity: acute Qualified Code(s): J81.0 - Acute pulmonary edema Patient Disposition: Admitted As Inpatient [facility] Past Medical History Attestation statement: The following information was validated with the patient. Source: old records reviewed Medical History Acute CVA (cerebrovascular accident) Atypical chest pain AV fistula CAD (coronary artery disease) CKD (chronic kidney disease) Dialysis patient GERD (gastroesophageal reflux disease) Pneumonia Surgical History History of hip surgery Social History Social History Alcohol intake: former Smoking Status: Former smoker Advance Directives: No Advance Directives Information Provided: No
--- NOTE | 2020-12-25 07:33 | PC.NURSE ---
called phlebotomy to do labs.
[2020-12-25 07:52] LABS: Imm Gran Abs Auto 0.01 X10*3/uL (0.00-0.03); Lymphocytes Percent Auto 24.3 % (20-40); MANUAL DIFF FLAG SCAN; PLT CLUMP 1; Red Cell Distribution Width 13.2 % (11.0-16.0); SCAN SMEAR FLAG 1
[2020-12-25 07:54] LABS: Basophils Percent Auto 1.1 % (0-2); Eosinophils Absolute Auto 0.3 X10*3/uL (0.0-0.4); Eosinophils Percent Auto 6.6 % (0-4); Imm Gran Pct Auto 0.3 % (0.0-0.4); Lymphocytes Absolute Auto 0.9 X10*3/uL (1.2-4.9); Mean Corpuscular HGB Conc 33.3 g/dl (31.0-36.0); Mean Corpuscular Hemoglobin 29.4 pg (27.0-33.0); Mean Corpuscular Volume 88.2 fL (80-98); Monocytes Absolute Auto 0.5 X10*3/uL (0.1-1.2); Monocytes Percent Auto 12.1 % (2-11); Neutrophils Absolute Auto 2.1 X10*3/uL (2.0-8.3); Neutrophils Percent Auto 55.6 % (45-73); Red Blood Count 3.06 X10*6/uL (4.60-5.80); White Blood Count 3.8 X10*3/uL (4.8-10.8)
[2020-12-25 07:59] LABS: COVID-19 Test Negative (Negative)
[2020-12-25] MEDS: oxyCODONE HCl Immed Release 5 MG TABLET 10 MG PO (08:02)
[2020-12-25 08:30] LABS: Alanine Aminotransferase < 6 U/L (0-40); Albumin Level 3.3 g/dL (3.5-5.0); Alkaline Phosphatase 116 U/L (39-117); Anion Gap 18 (12-20); Aspartate Amino Transferase 25 U/L (5-37); Bilirubin Direct 0.2 mg/dL (0.0-0.5); Bilirubin Total 0.8 mg/dL (0.0-1.0); Blood Urea Nitrogen 47 mg/dL (9-16); Calcium 9.2 mg/dL (8.4-10.2); Carbon Dioxide 28 mmol/L (22-29); Chloride 93 mmol/L (96-108); Estimated Glomerular Filt Rate 7; Glucose Random 121 mg/dL (60-115); Lipase 41 U/L (8-78); Magnesium 1.6 mg/dL (1.6-2.6); Potassium 3.9 mmol/L (3.3-5.1); Sodium 135 mmol/L (135-145); Total Protein 7.1 g/dL (6.5-8.0)
[2020-12-25 08:33] LABS: SLIDE REVIEW VERIFIED
[2020-12-25 09:27] LABS: Prothrombin Time 12.2 SEC (10.8-13.0)
[2020-12-25 09:30] LABS: Partial Thromboplastin Time 31.7 SEC (24.1-38.0)
[2020-12-25] MEDS: Nitroglycerin 2 % Oint 1 GM Packet 1 INCH TRANSDERMA (11:02)
--- NOTE | 2020-12-25 13:13 | PM.IMHP ---
History of Present Illness Date of Service: 12/25/20 Chief Complaint: shortness of breath and abdominal discomfort 70-year-old male with end-stage renal disease on hemodialysis 3 times a week, hypertension, nonischemic cardiomyopathy, hyperlipidemia among others who presents to the emergency room with abdominal pain onset about about 5 days ago. He was seen in the emergency room on December 17 with abdominal complaint at the time a CT scan of the abdomen show chronic changes and was treated for possible colitis of some sore with Flagyl he felt better bed state that today the pain returned and come into the emergency room and also having some shortness of breath he has not participated in dialysis he has dialysis center does not want to take back today. Arrangement is being made for the patient to have dialysis ER. His potassium is normal he appear fluid overloaded. A CT scan is repeated today showing no acute finding. Review of Systems Review of Systems: Gen: no fever Resp: no sob, no cough CV: no chest, no HDZ, no leg edema GI: No n/v, no abd pain Neuro: No confusion [facility] Medical History (Updated 12/25/20 @ 13:40 by Jalil King MD) Acute CVA (cerebrovascular accident) Atypical chest pain AV fistula CAD (coronary artery disease) Carpal tunnel syndrome CKD (chronic kidney disease) Diabetes Dialysis patient ESRD (end stage renal disease) GERD (gastroesophageal reflux disease) Hepatitis C History of stroke HLD (hyperlipidemia) HTN (hypertension) Non-ischemic cardiomyopathy HUGH (obstructive sleep apnea) Osteoarthritis Peripheral vascular disease Pneumonia Pertinent family history: Diabetes, HTN, CAD Surgical History (Updated 12/25/20 @ 13:22 by Jalil King MD) H/O colectomy History of hip surgery History of hip surgery Social History Alcohol intake: former Smoking Status: Former smoker Advance Directives: No Advance Directives Information Provided: No Meds Allergies Allergy/AdvReac Type Severity Reaction Status Date / Time No Known Allergies Allergy Mild N/A Verified 08/10/20 02:42 Active Medications: Current Medications Generic Name Dose Route Start Last Admin Trade Name Freq PRN Reason Stop Dose Admin Heparin Sodium (Porcine) 5,000 unit 12/25/20 11:43 Heparin Sodium,Porcine 5,000 Unit/Ml Vial SUBCUT Q12H [facility] Pharmacy Consult 1 each 12/25/20 09:25 Consult Rx Perform Med Rec MISCELLANE ONCE PRN Consult order Sodium Chloride 3 ml 12/25/20 16:00 0.9 % Sodium Chloride Flush 3 Ml Syringe IVFLU QSHIFT [facility] Home Medications Medication Instructions Recorded Confirmed Last Taken Type B complex with C 20-folic acid 1 cap PO DAILY 12/25/20 12/25/20 Unknown History [Triphrocaps] aspirin 1 tab PO QPM 12/25/20 12/25/20 Unknown History calcium acetate(phosphat bind) 1 cap PO DAILY 12/25/20 12/25/20 Unknown History clonazepam 0.5 - 1 mg PO QID PRN 12/25/20 12/25/20 Unknown History glecaprevir-pibrentasvir [Mavyret] 3 tab PO DAILY 12/25/20 12/25/20 Unknown History hydralazine 1 tab PO TID 12/25/20 12/25/20 Unknown History metoprolol succinate 1 tab PO QAM 12/25/20 12/25/20 Unknown History metronidazole 1 tab PO Q12H 12/25/20 12/25/20 Unknown History paroxetine HCl 1 tab PO QAM 12/25/20 12/25/20 Unknown History polyvinyl alcohol [Artificial 1 - 2 drp OPHTHALMIC-LEFT QID PRN 12/25/20 12/25/20 Unknown History Tears (polyvin alc)] tramadol 1 tab PO Q12H PRN 12/25/20 12/25/20 Unknown History valsartan 2 tab PO QAM 12/25/20 12/25/20 Unknown History Physical Exam Vital Signs and Narrative: Vital Signs: Last Vital Signs Temp 97.7 F 12/25/20 12:14 Pulse 85 12/25/20 12:14 Resp 16 12/25/20 12:14 BP 180/72 H 12/25/20 12:14 Pulse Ox 98 12/25/20 12:14 Body Mass Index 27.4 Const: Other: Constitutional Awake and Alert, No apparent distress HEENT:He has a large tumor of the left eye making the eye protruding outward Neck Supple, No lymphadenopathy Cardiovascular RRR, No M/R/G, S1 S2, No S3 S4, swelling of both arms not the legd Respiratory Lungs clear, No respiratory distress Gastrointestinal Non tender, Non-distended Skin No rash Neurological Alert & oriented x3 Psychological Appropriate affect Results Labs CBC and Chem 7: 12/25/20 07:43 12/25/20 07:42 Labs: Laboratory Results - last 24 hr 12/25/20 12/25/20 12/25/20 07:39 07:42 07:43 MCV 88.2 MCH 29.4 MCHC 33.3 RDW 13.2 Plt Count TNP MPV Not Reportable Immature Gran % (Auto) 0.3 Neut % (Auto) 55.6 Lymph % (Auto) 24.3 [place] % (Auto) 12.1 H Eos % (Auto) 6.6 H Baso % (Auto) 1.1 Lymph # (Auto) 0.9 L [place] # (Auto) 0.5 Eos # (Auto) 0.3 Baso # (Auto) 0.0 Abs Immat Gran (auto) 0.01 Absolute Neuts (auto) 2.1 Absolute Nucleated RBC 0.000 Nucleated RBC % (auto) 0.0 Smear Tech's Comments VERIFIED PT INR APTT Anion Gap 18 Estim Creat Clear Calc 9.0 Estimated GFR 7 Random Glucose 121 H Calcium 9.2 Magnesium 1.6 Total Bilirubin 0.8 Direct Bilirubin 0.2 AST 25 ALT < 6 Alkaline Phosphatase 116 Total Protein 7.1 Albumin 3.3 L Lipase 41 COVID-19 (KATLIN) Negative COVID-19 Clin Com See Note 12/25/20 09:16 MCV MCH MCHC RDW Plt Count MPV Immature Gran % (Auto) Neut % (Auto) Lymph % (Auto) [place] % (Auto) Eos % (Auto) Baso % (Auto) Lymph # (Auto) [place] # (Auto) Eos # (Auto) Baso # (Auto) Abs Immat Gran (auto) Absolute Neuts (auto) Absolute Nucleated RBC Nucleated RBC % (auto) Smear Tech's Comments PT 12.2 INR 1.0 APTT 31.7 Anion Gap Estim Creat Clear Calc Estimated GFR Random Glucose Calcium Magnesium Total Bilirubin Direct Bilirubin AST ALT Alkaline Phosphatase Total Protein Albumin Lipase COVID-19 (KATLIN) COVID-19 Clin Com Imaging Radiologist's Impressions: Impressions Abdomen/Pelvis CT 12/25/20 07:17 IMPRESSION: 1. Stable CT appearance of the abdomen and pelvis with chronic changes but no acute abnormality identified. 2. Interval development of a small left-sided pleural effusion with overlying airspace disease. 3. Chronic appearing complex right-sided pleural effusion is stable. Chest X-Ray 12/25/20 08:06 IMPRESSION: Radiographic findings most suggestive of mild CHF with interval development of left-sided pleural effusion. Assessment and Plan (1) Abdominal pain: Qualifiers: Abdominal location: right lower quadrant Qualified Code(s): R10.31 - Right lower quadrant pain Status: Acute (2) Fluid overload: Status: Acute (3) ESRD on dialysis: Status: Acute (4) Neoplasm of eye: Status: Acute (5) Hypoxia: Status: Acute 70-year-old male with end-stage renal disease and multiple other medical problems recently seen in the ED with abdominal pain that was vague treated with Flagyl he presented again today with abdominal pain unremarkable CT scan and is found to have fluid overloaded associated with hypoxia. And Plan 1. End-stage renal disease with fluid overloaded manifested with a significant swelling in the both forearm swelling in the face. Patient is to go for urgent dialysis today despite the fact that his labs are all okay including potassium. 2. Abdominal pain he presently does not complain about any abdominal pain a CT scan of the abdomen did not show any acute finding. Will treat symptomatically with pain medication. 3. Hypertension his blood pressure is rather elevated he takes metoprolol he may need additional medication to for better control. 4. Coronary artery disease presently without any angina. Continue aspirin metoprolol statin. 5. Anxiety clonazepam 6. He has a large Lizy left eye inoperable tumor apparently not new with no significant pain and will continue monitoring 7. Heparin for DVT prophylaxis
--- NOTE | 2020-12-25 15:16 | PM.PNNEP ---
Subjective Subjective Date of Service: 12/25/20 Interval history: patient seen and examined on dialysis Physical Exam Vital Signs: Vital Signs: Last Vital Signs Temp 97.7 F 12/25/20 12:14 Pulse 85 12/25/20 12:14 Resp 16 12/25/20 12:14 BP 180/72 H 12/25/20 12:14 Pulse Ox 98 12/25/20 12:14 Body Mass Index 27.4 Objective Data Labs CBC & Chem 7: 12/25/20 07:43 12/25/20 07:42 Labs: Laboratory Results - last 24 hr 12/25/20 12/25/20 12/25/20 07:39 07:42 07:43 WBC 3.8 L RBC 3.06 L Hgb 9.0 L Hct 27.0 L MCV 88.2 MCH 29.4 MCHC 33.3 RDW 13.2 Plt Count TNP MPV Not Reportable Immature Gran % (Auto) 0.3 Neut % (Auto) 55.6 Lymph % (Auto) 24.3 [place] % (Auto) 12.1 H Eos % (Auto) 6.6 H Baso % (Auto) 1.1 Lymph # (Auto) 0.9 L [place] # (Auto) 0.5 Eos # (Auto) 0.3 Baso # (Auto) 0.0 Abs Immat Gran (auto) 0.01 Absolute Neuts (auto) 2.1 Absolute Nucleated RBC 0.000 Nucleated RBC % (auto) 0.0 Smear Tech's Comments VERIFIED PT INR APTT Sodium 135 Potassium 3.9 Chloride 93 L Carbon Dioxide 28 Anion Gap 18 BUN 47 H Creatinine 7.46 H* Estim Creat Clear Calc 9.0 Estimated GFR 7 Random Glucose 121 H Calcium 9.2 Magnesium 1.6 Total Bilirubin 0.8 Direct Bilirubin 0.2 AST 25 ALT < 6 Alkaline Phosphatase 116 Total Protein 7.1 Albumin 3.3 L Lipase 41 COVID-19 (KATLIN) Negative COVID-19 Clin Com See Note 12/25/20 09:16 WBC RBC Hgb Hct MCV MCH MCHC RDW Plt Count MPV Immature Gran % (Auto) Neut % (Auto) Lymph % (Auto) [place] % (Auto) Eos % (Auto) Baso % (Auto) Lymph # (Auto) [place] # (Auto) Eos # (Auto) Baso # (Auto) Abs Immat Gran (auto) Absolute Neuts (auto) Absolute Nucleated RBC Nucleated RBC % (auto) Smear Tech's Comments PT 12.2 INR 1.0 APTT 31.7 Sodium Potassium Chloride Carbon Dioxide Anion Gap BUN Creatinine Estim Creat Clear Calc Estimated GFR Random Glucose Calcium Magnesium Total Bilirubin Direct Bilirubin AST ALT Alkaline Phosphatase Total Protein Albumin Lipase COVID-19 (KATLIN) COVID-19 Clin Com Assessment & Plan Assessment and plan (1) ESRD (end stage renal disease): Status: Acute (2) HTN (hypertension): Status: Acute (3) Anemia: Status: Acute Assessment and Plan: HD today optimize volume status SVITLANA per protocol phosphate binders renal diet Time Spent With Patient Time: Total time spent is greater than 50% in coordination of care (as documented) at patient's floor/unit and/or counseling patient:
[2020-12-25] MEDS: hydrALAZINE HCl 50 MG TABLET 100 MG PO ×2 (18:22→21:02)
[2020-12-25] MEDS: Metoprolol Succinate ER 100 MG TAB.ER.24H PO (18:22)
[2020-12-25] MEDS: metroNIDAZOLE 500 MG TABLET PO (18:22)
[2020-12-25] MEDS: Aspirin Enteric Coated 81 MG TABLET.DR PO (18:23)
[2020-12-25] MEDS: Valsartan 320 MG TABLET PO (18:23)
[2020-12-25] MEDS: 0.9 % Sodium Chloride Flush 3 ML SYRINGE IVFLUSH ×2 (18:23→23:57)
[2020-12-25] MEDS: PARoxetine HCL 10 MG TABLET PO (18:23)
[2020-12-25] MEDS: Heparin Sodium,Porcine 5,000 UNIT/ML VIAL 5000 UNIT SUBCUT (23:46)
[2020-12-26] MEDS: Morphine Sulfate 2 MG/ML CARTRIDGE IVPUSH (00:07)
--- NOTE | 2020-12-26 02:15 | CONS_ITS ---
DATE OF SERVICE: HISTORY OF PRESENT ILLNESS: This is a 70-year-old patient with a history of end-stage renal disease, who presented to the hospital with shortness of breath and abdominal discomfort. At the time of the consultation, the patient is in the dialysis unit undergoing his treatment. The patient was seen in the emergency room recently on December 17 with abdominal pain and a CT scan of the abdomen at that time showed chronic changes and he was treated for possible colitis. He returns today to the emergency room with shortness of breath and was unable to have his dialysis treatment this morning. PAST MEDICAL HISTORY: Remarkable for end-stage renal disease, hypertension, CVA, coronary artery disease, carpal tunnel syndrome, diabetes mellitus, GERD, hepatitis C, dyslipidemia, known ischemic cardiomyopathy, obstructive sleep apnea, osteoarthritis, and peripheral vascular disease. PAST SURGICAL HISTORY: Notable for vascular access placement, colectomy, and hip surgery. MEDICATIONS: As inpatient and outpatient were reviewed. SOCIAL HISTORY: He is an ex-smoker. ALLERGIES: HE IS NOT ALLERGIC TO MEDICATION. FAMILY HISTORY: Negative for kidney disease. REVIEW OF SYSTEMS: Ten-point review of systems negative, except pertinent in the history of present illness. PHYSICAL EXAMINATION: VITAL SIGNS: The blood pressure is 180/72, heart rate 85, respiratory rate 16, and temperature afebrile. CONSTITUTIONAL: Looks his stated age. No acute distress. NEUROLOGIC: Alert and awake. HEAD: Atraumatic and normocephalic. NECK: Supple. LUNGS: Decreased breath sounds. CARDIOVASCULAR: S1 and S2. No rub. ABDOMEN: Soft, obese, and nontender. EXTREMITIES: With peripheral edema. LABORATORY DATA: Showed a white count 3.8, hemoglobin 9, and platelet count 180. Sodium 135, potassium 3.9, chloride 93, CO2 28, BUN 47, and creatinine 7.46. IMPRESSION: 1. End-stage renal disease. 2. Hypertension. 3. Anemia. PLAN: Will be to resume his hemodialysis as per schedule. We will optimize his volume status. Start him on a renal diet. Resume his SVITLANA per protocol and his phosphate binders as well. Continue to follow closely along with the medical team. Thank you for allowing me to participate in the care of this patient. MD MYRIAM Jerez/MODL / [id number]
[2020-12-26 07:13] VITALS: BP 174/107; PULSE 75; RESP 19; TEMP 36.7; O2SAT 97
[2020-12-26] MEDS: 0.9 % Sodium Chloride Flush 3 ML SYRINGE IVFLUSH (07:47)
--- NOTE | 2020-12-26 10:26 | PM.DS ---
DS: Providers Provider Date of Service: 12/26/20 Date of admission: 12/25/20 10:44 Primary care physician: Unknown Physician Consults: 12/25/20 11:43 Consult to Nephrology Routine Consulting Provider: Pam Brown Reason for consultation: fluid overload, needs dialysis Has provider been notified: Yes DS: Diagnosis Discharge Diagnosis (1) ESRD (end stage renal disease): Status: Acute (2) HTN (hypertension): Status: Acute (3) Anemia: Status: Acute DS: Medications Discharge Medications Home Medications: Home Medications Medication Instructions Recorded Confirmed Mavyret 3 tab PO DAILY 12/25/20 12/25/20 Triphrocaps 1 cap PO DAILY 12/25/20 12/25/20 aspirin 1 tab PO QPM 12/25/20 12/25/20 calcium acetate(phosphat bind) 1 cap PO DAILY 12/25/20 12/25/20 clonazepam 0.5 - 1 mg PO QID PRN 12/25/20 12/25/20 hydralazine 1 tab PO TID 12/25/20 12/25/20 metoprolol succinate 1 tab PO QAM 12/25/20 12/25/20 metronidazole 1 tab PO Q12H 12/25/20 12/25/20 paroxetine HCl 1 tab PO QAM 12/25/20 12/25/20 polyvinyl alcohol [Artificial 1 - 2 drp OPHTHALMIC-LEFT QID PRN 12/25/20 12/25/20 Tears (polyvin alc)] tramadol 1 tab PO Q12H PRN 12/25/20 12/25/20 valsartan 2 tab PO QAM 12/25/20 12/25/20 DS: Summary Hospital Course Hospital Course: patient was initially seen in ED for abdominal pain that resolved by time of admission with no obvious cause. he was also complaining of some shortness of breath found to be due to fluid overload from missed HD. he was admitted for this reason, underwent urgent HD and sympotoms resolved. he will now be discharged home and is encouraged to follow up with HD. Time Spent with Patient Time attestation: Total time spent providing and/or coordinating discharge services: Discharge coordination time: Greater than 30 minutes Physical Exam Vital Signs: Vital Signs: Last Vital Signs Temp 98.0 F 12/26/20 07:13 Pulse 75 12/26/20 07:13 Resp 19 12/26/20 07:13 BP 174/107 H 12/26/20 07:13 Pulse Ox 97 12/26/20 07:13 Body Mass Index 27.4 General: AO X 3, no acute distress Resp: CTA bilateral CVS: S1,S2,RRR GI: soft, non tender, non distended Neuro: motor grossly intact Psych: appropriate affect inoperable left eye tumor Discharge Plan Discharge Patient Disposition: Home, Self-Care Discharge Diagnosis: fluid overload Referrals: Physician,Unknown [Primary Care Provider] - 1 Week Discharge Medications: Continued paroxetine HCl 10 mg tablet 1 tab PO QAM RF: 0 polyvinyl alcohol [Artificial Tears (polyvin alc)] 1.4 % drops 1 - 2 drp ophthalmic-Left QID PRN (Reason: Dry Eye(S)) RF: 0 metoprolol succinate 100 mg tablet extended release 24 hr 1 tab PO QAM RF: 0 metronidazole 500 mg tablet 1 tab PO Q12H RF: 0 aspirin 81 mg tablet,delayed release (DR/EC) 1 tab PO QPM RF: 0 hydralazine 100 mg tablet 1 tab PO TID RF: 0 calcium acetate(phosphat bind) 667 mg capsule 1 cap PO DAILY RF: 0 clonazepam 1 mg tablet 0.5 - 1 mg PO QID PRN (Reason: Anxiety) RF: 0 tramadol 50 mg tablet 1 tab PO Q12H PRN (Reason: pain) RF: 0 valsartan 160 mg tablet 2 tab PO QAM RF: 0 Mavyret 100-40 mg tablet 3 tab PO DAILY RF: 0 Triphrocaps 1 mg capsule 1 cap PO DAILY RF: 0 Discharge Orders: Discharge Order (Routine); Ordered 12/26/20 Ordered By: Desmond Walsh Activity on Discharge: As tolerated Stand Alone Forms: Patient Portal Discharge page Care Plan Goals: recovery Health Concerns: esrd Plan of Treatment: follow up with hd Assessment: see above
--- NOTE | 2020-12-26 11:22 | PM.PNNEP ---
Subjective Subjective Date of Service: 12/26/20 Interval history: patient seen and examined no complaints Physical Exam Vital Signs: Vital Signs: Last Vital Signs Temp 98.0 F 12/26/20 07:13 Pulse 75 12/26/20 07:13 Resp 19 12/26/20 07:13 BP 174/107 H 12/26/20 07:13 Pulse Ox 97 12/26/20 07:13 Body Mass Index 27.4 Const: General: comfortable and no acute distress HENMT: Head: Yes normocephalic and Yes atraumatic Neck: Neck: Yes supple Resp: Auscultation: diminished lung sounds Cardio: Heart sounds: S1 normal heart sound present and S2 normal heart sound present GI: Palpation (GI): Soft to palpation and nontender Extrem: General: Yes edema Objective Data Labs CBC & Chem 7: 12/25/20 07:43 12/25/20 07:42 Assessment & Plan Assessment and plan (1) ESRD (end stage renal disease): Status: Acute (2) HTN (hypertension): Status: Acute (3) Anemia: Status: Acute Assessment and Plan: HD per schedule SVITLANA per protocol phosphate binders renal diet Time Spent With Patient Time: Total time spent is greater than 50% in coordination of care (as documented) at patient's floor/unit and/or counseling patient:
--- NOTE | 2020-12-26 11:54 | MHC.CM.PN ---
pt lives alone in apt. he says he is independent in his care. he does have a friend that can help him should he need it and will provide transportation at dc. he also has HD at [facility] for which he has transportation for and will resume at dc. pt denies the need for vna at dc. dc plan is home c resumption of HD svcs. cm to cont. to follow.
== END 2020-12-26 15:00 | disposition home or self-care (01) | DRG 640 ==
LOC: HO.ED 09:29 → HO.EDOVER 10:48 → HO.S3 10:57
PROVIDERS: Admitting Provider Internal Medicine; Emergency Provider Emergency Medicine; Visit Provider Internal Medicine
DX: E87.70 Fluid overload, unspecified (principal); N18.6 End stage renal disease; I12.0 Hypertensive chronic kidney disease with stage 5 chronic kidney disease or end stage renal disease; I25.5 Ischemic cardiomyopathy; I25.10 Atherosclerotic heart disease of native coronary artery without angina pectoris; D63.1 Anemia in chronic kidney disease; F41.9 Anxiety disorder, unspecified; E78.5 Hyperlipidemia, unspecified; Z91.15 Patient's noncompliance with renal dialysis; Z87.891 Personal history of nicotine dependence; Z99.2 Dependence on renal dialysis; Z20.822 Contact with and (suspected) exposure to COVID-19; Z79.82 Long term (current) use of aspirin; Z79.899 Other long term (current) drug therapy
CPT/HCPCS: 36415; 71045; 74176; 80048; 80076; 83690; 83735; 85025; 85610; 85730; 87635; 90999; 93005; 99285; J2270

== ENCOUNTER 2021-01-16 09:21 | Outpatient (REF) | payer MEDICARE, MEDICAID, SELFPAY ==
[2021-01-16 10:44] LABS: MANUAL DIFF FLAG NO
[2021-01-16 10:52] LABS: Basophils Percent Auto 0.7 % (0-2); Eosinophils Absolute Auto 0.3 X10*3/uL (0.0-0.4); Eosinophils Percent Auto 6.3 % (0-4); Hematocrit 33.4 % (42-52); Hemoglobin 10.8 g/dl (14.0-18.0); Imm Gran Abs Auto 0.01 X10*3/uL (0.00-0.03); Imm Gran Pct Auto 0.2 % (0.0-0.4); Lymphocytes Absolute Auto 1.3 X10*3/uL (1.2-4.9); Lymphocytes Percent Auto 27.6 % (20-40); Mean Corpuscular HGB Conc 32.3 g/dl (31.0-36.0); Mean Corpuscular Hemoglobin 29.8 pg (27.0-33.0); Monocytes Absolute Auto 0.6 X10*3/uL (0.1-1.2); Monocytes Percent Auto 12.7 % (2-11); Neutrophils Absolute Auto 2.4 X10*3/uL (2.0-8.3); Neutrophils Percent Auto 52.5 % (45-73); Platelet Count 227 X10*3/uL (160-400); Red Blood Count 3.63 X10*6/uL (4.60-5.80); Red Cell Distribution Width 14.6 % (11.0-16.0); White Blood Count 4.6 X10*3/uL (4.8-10.8)
[2021-01-16 10:55] LABS: INTERNATIONAL NORM RATIO 1.1 (0.9-1.1); Prothrombin Time 12.8 SEC (10.8-13.0)
[2021-01-16 11:52] LABS: Alanine Aminotransferase 6 U/L (0-40); Albumin Level 3.3 g/dL (3.5-5.0); Alkaline Phosphatase 105 U/L (39-117); Aspartate Amino Transferase 15 U/L (5-37); Bilirubin Direct 0.2 mg/dL (0.0-0.5); Bilirubin Total 0.8 mg/dL (0.0-1.0)
[2021-01-18 13:25] LABS: HCV Log PCR <1.18 NOT DETECTED Log IU/mL (NOT DETECTED); HepC Viral Load <15 NOT DETECTED IU/mL (NOT DETECTED)
[2021-01-31 20:17] LABS: FIB-ALT 6 U/L (9-46); FIB-Alpha-2-Macroglobulin 243 mg/dL (106-279); FIB-Apolipoprotein A1 79 mg/dL (94-176); FIB-GGT 11 U/L (3-70); FIB-Haptoglobin 110 mg/dL (43-212); FIB-Total Bilirubin 0.5 mg/dL (0.2-1.2); Liver Fibrosis Score 0.53; Liver Fibrosis Stage F2; Nec Inflam Act Grade A0; Nec Inflam Act Score 0.02
== END 2021-01-16 09:22 | disposition home or self-care (01) ==
LOC: HO.LAB 09:21
PROVIDERS: PCP Internal Medicine; Visit Provider Internal Medicine
DX: B18.2 Chronic viral hepatitis C (principal)
CPT/HCPCS: 36415; 80076; 81596; 85025; 85610; 87522

== ENCOUNTER 2021-03-19 23:01 | Emergency (ER) | payer MEDICARE, MEDICAID, SELFPAY ==
[2021-03-19 23:01] VITALS: BP 148/73; BP 148/76; PULSE 44; RESP 14; TEMP 37.4; O2SAT 94; O2SAT 95; BMI 27.8
--- NOTE | 2021-03-20 00:15 | ED_ITS ---
HPI - Extremity Problem General Chief complaint: Extremity Problem Stated complaint: left leg pain Time Seen by Provider: 03/20/21 00:15 Source: patient Mode of arrival: EMS Limitations: no limitations History of Present Illness HPI Narrative: Patient with hx of end-stage renal disease had dialysis today complaining of pain in the left leg for few hours no injury no change in disc coloration of the left leg. Patient does have history of hypertension left eye mass. Patient took 1 tablet tramadol 1 hour prior to arrival looks comfortable at this time no open wound in the left leg Related Data Home Medications Medication Instructions Recorded Confirmed Mavyret 3 tab PO DAILY 12/25/20 12/25/20 Triphrocaps 1 cap PO DAILY 12/25/20 12/25/20 aspirin 1 tab PO QPM 12/25/20 12/25/20 calcium acetate(phosphat bind) 1 cap PO DAILY 12/25/20 12/25/20 clonazepam 0.5 - 1 mg PO QID PRN 12/25/20 12/25/20 hydralazine 1 tab PO TID 12/25/20 12/25/20 metoprolol succinate 1 tab PO QAM 12/25/20 12/25/20 metronidazole 1 tab PO Q12H 12/25/20 12/25/20 paroxetine HCl 1 tab PO QAM 12/25/20 12/25/20 polyvinyl alcohol [Artificial 1 - 2 drp OPHTHALMIC-LEFT QID PRN 12/25/20 12/25/20 Tears (polyvin alc)] tramadol 1 tab PO Q12H PRN 12/25/20 12/25/20 valsartan 2 tab PO QAM 12/25/20 12/25/20 Allergies Allergy/AdvReac Type Severity Reaction Status Date / Time No Known Allergies Allergy Mild N/A Verified 08/10/20 02:42 Review of Systems Review of Systems: Yes all other systems are reviewed and are negative [facility] Past Medical History Medical History Acute CVA (cerebrovascular accident) Atypical chest pain AV fistula CAD (coronary artery disease) Carpal tunnel syndrome CKD (chronic kidney disease) Diabetes Dialysis patient ESRD (end stage renal disease) GERD (gastroesophageal reflux disease) Hepatitis C History of stroke HLD (hyperlipidemia) HTN (hypertension) Non-ischemic cardiomyopathy HUGH (obstructive sleep apnea) Osteoarthritis Peripheral vascular disease Pneumonia Surgical History H/O colectomy History of hip surgery History of hip surgery Social History Social History Household Members: Family Housing: Apartment Do you presently have visiting nurse or other home services: No Alcohol intake: former service: No Current occupational status: disabled Physical Exam Vital Signs: Vital Signs: Last Vital Signs Temp 99.3 F 03/19/21 23:01 Pulse 44 L 03/19/21 23:01 Resp 14 03/19/21 23:01 BP 148/76 H 03/19/21 23:01 Pulse Ox 94 03/19/21 23:01 Body Mass Index 27.8 Appearance: Alert. Oriented X3. No acute distress. Eyes: Left eye closed secondary to mass ENT: Pharynx normal. Oral Mucosa moist Neck: Normal inspection. Neck supple. CVS: Normal heart rate and rhythm. Pulses normal. Respiratory: No respiratory distress. Equal air entry bilateral, no wheezing/rales/rhonchi Abdomen: Soft and nontender. Bowel sounds are present, no mass palpable, Skin: Skin warm and dry. Normal skin color. Normal skin turgor. Extremities: No lower extremity edema. No calf tenderness good dorsalis pedis pulse and popliteal pulses no signs of ischemia Neuro: Oriented X 3. No motor deficit. No sensory deficit.No cerebellar signs , MDM - Extremity (Nontraumatic) MDM Narrative Medical decision making narrative: Patient with stable labs blood peripheral ci rculation the left leg pain likely musculoskeletal will discharge patient home Lab Data Attestation: I reviewed the patient's lab results. Result diagrams: 03/20/21 00:15 03/20/21 00:15 Labs: Lab Results 03/20/21 03/20/21 Range/Units 00:15 00:15 WBC 5.4 (4.8-10.8) X10*3/uL RBC 3.83 L (4.60-5.80) X10*6/uL Hgb 11.6 L (14.0-18.0) g/dl Hct 33.7 L (42-52) % MCV 88.0 (80-98) fL MCH 30.3 (27.0-33.0) pg MCHC 34.4 (31.0-36.0) g/dl RDW 13.4 (11.0-16.0) % Plt Count 183 (160-400) X10*3/uL MPV 9.9 (9.4-12.4) fL Immature Gran % (Auto) 0.2 (0.0-0.4) % Neut % (Auto) 67.8 (45-73) % Lymph % (Auto) 14.8 L (20-40) % [place] % (Auto) 12.0 H (2-11) % Eos % (Auto) 4.6 H (0-4) % Baso % (Auto) 0.6 (0-2) % Lymph # (Auto) 0.8 L (1.2-4.9) X10*3/uL [place] # (Auto) 0.7 (0.1-1.2) X10*3/uL Eos # (Auto) 0.3 (0.0-0.4) X10*3/uL Baso # (Auto) 0.0 (0.0-0.2) X10*3/uL Abs Immat Gran (auto) 0.01 (0.00-0.03) X10*3/uL Absolute Neuts (auto) 3.7 (2.0-8.3) X10*3/uL Absolute Nucleated RBC 0.000 (0.0-0.012) X10*3/uL Nucleated RBC % (auto) 0.0 (0.0-0.2) /100WBC Sodium 133 L (135-145) mmol/L Potassium 4.2 (3.3-5.1) mmol/L Chloride 91 L (96-108) mmol/L Carbon Dioxide 31 H (22-29) mmol/L Anion Gap 15 (12-20) BUN 37 H (9-16) mg/dL Creatinine 4.89 H* (0.5-1.4) mg/dL Estim Creat Clear Calc 14.0 Estimated GFR 12 Random Glucose 148 H (60-115) mg/dL Calcium 8.4 D (8.4-10.2) mg/dL Total Bilirubin 0.8 (0.0-1.0) mg/dL AST 21 (5-37) U/L ALT 7 (0-40) U/L Alkaline Phosphatase 233 H D (39-117) U/L Total Protein 7.6 (6.5-8.0) g/dL Albumin 3.6 (3.5-5.0) g/dL Discharge Plan Discharge Prescriptions: No Action paroxetine HCl 10 mg tablet 1 tab PO QAM RF: 0 polyvinyl alcohol [Artificial Tears (polyvin alc)] 1.4 % drops 1 - 2 drp ophthalmic-Left QID PRN (Reason: Dry Eye(S)) RF: 0 metoprolol succinate 100 mg tablet extended release 24 hr 1 tab PO QAM RF: 0 metronidazole 500 mg tablet 1 tab PO Q12H RF: 0 aspirin 81 mg tablet,delayed release (DR/EC) 1 tab PO QPM RF: 0 hydralazine 100 mg tablet 1 tab PO TID RF: 0 calcium acetate(phosphat bind) 667 mg capsule 1 cap PO DAILY RF: 0 clonazepam 1 mg tablet 0.5 - 1 mg PO QID PRN (Reason: Anxiety) RF: 0 tramadol 50 mg tablet 1 tab PO Q12H PRN (Reason: pain) RF: 0 valsartan 160 mg tablet 2 tab PO QAM RF: 0 Mavyret 100-40 mg tablet 3 tab PO DAILY RF: 0 Triphrocaps 1 mg capsule 1 cap PO DAILY RF: 0
[2021-03-20 00:23] LABS: Basophils Percent Auto 0.6 % (0-2); Eosinophils Absolute Auto 0.3 X10*3/uL (0.0-0.4); Eosinophils Percent Auto 4.6 % (0-4); Hematocrit 33.7 % (42-52); Hemoglobin 11.6 g/dl (14.0-18.0); Imm Gran Abs Auto 0.01 X10*3/uL (0.00-0.03); Imm Gran Pct Auto 0.2 % (0.0-0.4); Lymphocytes Absolute Auto 0.8 X10*3/uL (1.2-4.9); Lymphocytes Percent Auto 14.8 % (20-40); MANUAL DIFF FLAG NO; Mean Corpuscular HGB Conc 34.4 g/dl (31.0-36.0); Mean Corpuscular Hemoglobin 30.3 pg (27.0-33.0); Mean Platelet Volume 9.9 fL (9.4-12.4); Monocytes Absolute Auto 0.7 X10*3/uL (0.1-1.2); Neutrophils Absolute Auto 3.7 X10*3/uL (2.0-8.3); Neutrophils Percent Auto 67.8 % (45-73); Platelet Count 183 X10*3/uL (160-400); Red Blood Count 3.83 X10*6/uL (4.60-5.80); Red Cell Distribution Width 13.4 % (11.0-16.0); White Blood Count 5.4 X10*3/uL (4.8-10.8)
[2021-03-20 00:50] LABS: Alanine Aminotransferase 7 U/L (0-40); Albumin Level 3.6 g/dL (3.5-5.0); Alkaline Phosphatase 233 U/L (39-117); Anion Gap 15 (12-20); Aspartate Amino Transferase 21 U/L (5-37); Bilirubin Total 0.8 mg/dL (0.0-1.0); Blood Urea Nitrogen 37 mg/dL (9-16); Calcium 8.4 mg/dL (8.4-10.2); Carbon Dioxide 31 mmol/L (22-29); Chloride 91 mmol/L (96-108); Estimated Glomerular Filt Rate 12; Glucose Random 148 mg/dL (60-115); Potassium 4.2 mmol/L (3.3-5.1); Sodium 133 mmol/L (135-145); Total Protein 7.6 g/dL (6.5-8.0)
--- NOTE | 2021-03-20 09:22 | ECG_ITS ---
Test Reason : IRREGULAR HR Blood Pressure : / mmHG Vent. Rate : 088 BPM Atrial Rate : 088 BPM P-R Int : 150 ms QRS Dur : 078 ms QT Int : 392 ms P-R-T Axes : 035 -21 051 degrees QTc Int : 474 ms Sinus rhythm with frequent Premature ventricular complexes in a pattern of bigeminy Inferior infarct (cited on or before 17-DEC-2020) Abnormal ECG When compared with ECG of 25-DEC-2020 07:31, Premature ventricular complexes are now Present Referred By: Brady Frances Electronically Signed By:LEONOR CAMARILLO MD
== END 2021-03-20 02:45 | disposition home or self-care (01) ==
LOC: HO.ED 03-20 01:26
PROVIDERS: Emergency Provider Internal Medicine
DX: M79.605 Pain in left leg (principal); I12.0 Hypertensive chronic kidney disease with stage 5 chronic kidney disease or end stage renal disease; E11.22 Type 2 diabetes mellitus with diabetic chronic kidney disease; N18.6 End stage renal disease; Z86.73 Personal history of transient ischemic attack (TIA), and cerebral infarction without residual deficits; Z79.82 Long term (current) use of aspirin; Z79.899 Other long term (current) drug therapy; Z99.2 Dependence on renal dialysis
CPT/HCPCS: 36415; 80053; 85025; 93005; 96374; 99283; 99284

== ENCOUNTER 2021-03-20 03:08 | Emergency (ER) | payer MEDICARE, MEDICAID, SELFPAY ==
[2021-03-20 03:20] VITALS: BP 148/73; PULSE 44; PULSE 88; RESP 15; TEMP 37; O2SAT 95; BMI 25.4
[2021-03-20 04:00] VITALS: RESP 15
[2021-03-20 06:00] VITALS: BP 142/82; PULSE 88; RESP 15; O2SAT 99
--- NOTE | 2021-03-20 06:48 | ED_ITS ---
HPI - General Adult General Chief complaint: Extremity Problem Stated complaint: ? Time Seen by Provider: 03/20/21 06:15 Source: EMS and per diem interpreter Mode of arrival: EMS History of Present Illness HPI narrative: 70-year-old male who had been transported back to his home after being fully evaluated for initial complaint, but EMS states that home health aide was not has residence, no and was answering the door, so patient was brought back to the emergency department. Patient denies any acute complaints currently to include denying shortness of breath, chest pain, any recurrence of his leg pain. Related Data Home Medications Medication Instructions Recorded Confirmed Mavyret 3 tab PO DAILY 12/25/20 12/25/20 Triphrocaps 1 cap PO DAILY 12/25/20 12/25/20 aspirin 1 tab PO QPM 12/25/20 12/25/20 calcium acetate(phosphat bind) 1 cap PO DAILY 12/25/20 12/25/20 clonazepam 0.5 - 1 mg PO QID PRN 12/25/20 12/25/20 hydralazine 1 tab PO TID 12/25/20 12/25/20 metoprolol succinate 1 tab PO QAM 12/25/20 12/25/20 metronidazole 1 tab PO Q12H 12/25/20 12/25/20 paroxetine HCl 1 tab PO QAM 12/25/20 12/25/20 polyvinyl alcohol [Artificial 1 - 2 drp OPHTHALMIC-LEFT QID PRN 12/25/20 12/25/20 Tears (polyvin alc)] tramadol 1 tab PO Q12H PRN 12/25/20 12/25/20 valsartan 2 tab PO QAM 12/25/20 12/25/20 Allergies Allergy/AdvReac Type Severity Reaction Status Date / Time No Known Allergies Allergy Mild N/A Verified 08/10/20 02:42 Review of Systems Review of Systems: Pertinent positives and negatives as stated in HPI 10 point review of systems is otherwise negative. FORMERLY [facility], [facility] Past Medical History Source: nursing notes reviewed Medical History Acute CVA (cerebrovascular accident) Atypical chest pain AV fistula CAD (coronary artery disease) Carpal tunnel syndrome CKD (chronic kidney disease) Diabetes Dialysis patient ESRD (end stage renal disease) GERD (gastroesophageal reflux disease) Hepatitis C History of stroke HLD (hyperlipidemia) HTN (hypertension) Non-ischemic cardiomyopathy HUGH (obstructive sleep apnea) Osteoarthritis Peripheral vascular disease Pneumonia Surgical History H/O colectomy History of hip surgery History of hip surgery Social History Social History Household Members: Family Housing: Apartment Do you presently have visiting nurse or other home services: No Alcohol intake: never Patient Tobacco Use Status: Never used Tobacco Use of substances other than those prescribed or required for medical reasons: No Advance Directives: No Advance Directives Information Provided: No service: No Current occupational status: disabled Physical Exam Vital Signs: Vital Signs: Last Vital Signs Temp 98.6 F 03/20/21 03:20 Pulse 88 03/20/21 06:00 Resp 15 03/20/21 06:00 BP 142/82 H 03/20/21 06:00 Pulse Ox 99 03/20/21 06:00 Body Mass Index 25.4 VITAL SIGNS: Reviewed. GENERAL: Chronically ill, in no acute distress. HEAD: Normocephalic/atraumatic EYES: PERRLA, left eye tumor EARS: Ext canals without abnormality NOSE: Nares patent bilateral OROPHARYNX: no oral lesions noted, posterior pharynx clear LUNGS: Normal breath sounds. No adventitious sounds or accessory muscle use. SpO2<99> CARDIOVASCULAR: Regular rate and rhythm without noted murmurs ABDOMEN: Soft, non-tender, non-distended with bowel sounds. SKIN: Inspection of the skin reveals no rashes NEUROLOGIC: Alert and oriented x 4. Course Course Course Narrative: 70-year-old male with history and clinical presentation consistent with inability to return home at present, no acute medical complaints at present and hemodynamically stable. Will continue to observe patient until appropriate arrangements can be made for safe transport to home. Discharge Plan Discharge Clinical Impression: Encounter for medical assessment Patient Disposition: Home, Self-Care Instructions: Leg Pain (ED) Additional Instructions: 1. Resume all home medications. Return to the ER for acute worsening of symptoms. Prescriptions: No Action paroxetine HCl 10 mg tablet 1 tab PO QAM RF: 0 polyvinyl alcohol [Artificial Tears (polyvin alc)] 1.4 % drops 1 - 2 drp ophthalmic-Left QID PRN (Reason: Dry Eye(S)) RF: 0 metoprolol succinate 100 mg tablet extended release 24 hr 1 tab PO QAM RF: 0 metronidazole 500 mg tablet 1 tab PO Q12H RF: 0 aspirin 81 mg tablet,delayed release (DR/EC) 1 tab PO QPM RF: 0 hydralazine 100 mg tablet 1 tab PO TID RF: 0 calcium acetate(phosphat bind) 667 mg capsule 1 cap PO DAILY RF: 0 clonazepam 1 mg tablet 0.5 - 1 mg PO QID PRN (Reason: Anxiety) RF: 0 tramadol 50 mg tablet 1 tab PO Q12H PRN (Reason: pain) RF: 0 valsartan 160 mg tablet 2 tab PO QAM RF: 0 Mavyret 100-40 mg tablet 3 tab PO DAILY RF: 0 Triphrocaps 1 mg capsule 1 cap PO DAILY RF: 0 Referrals: Physician,Unknown [Primary Care Provider] - 2 days Print Language: Polish
== END 2021-03-20 09:08 | disposition home or self-care (01) ==
PROVIDERS: Emergency Provider Student in an Organized Health Care Education/Training Program
DX: Z75.1 Person awaiting admission to adequate facility elsewhere (principal)
CPT/HCPCS: 99283; 99284

== ENCOUNTER 2021-04-12 22:02 | Emergency (ER) | payer MEDICARE, MEDICAID, SELFPAY ==
--- NOTE | ~2021-04-12 | XR_ITS ---
EXAMINATION: XR CHEST CLINICAL INFORMATION: Cough COMPARISON: 12/25/2020 TECHNIQUE: Frontal view of the chest was obtained. FINDINGS: Lung volumes are low. Right basilar airspace opacity is noted with small pleural effusion. Mild interstitial prominence. No pneumothorax. Cardiomediastinal silhouette is unchanged. XR/XR chest 1V IMPRESSION: Small right pleural effusion with right basilar airspace opacity which could represent atelectasis or pneumonia. There may be mild edema as well.
[2021-04-12 22:11] VITALS: BP 124/74; BP 125/67; PULSE 79; PULSE 80; RESP 16; TEMP 36.8; O2SAT 95; O2SAT 96; BMI 27.6
[2021-04-12 22:47] LABS: MANUAL DIFF FLAG NO
[2021-04-12 22:48] LABS: Basophils Percent Auto 0.6 % (0-2); Eosinophils Absolute Auto 0.5 X10*3/uL (0.0-0.4); Eosinophils Percent Auto 9.3 % (0-4); Hemoglobin 10.4 g/dl (14.0-18.0); Imm Gran Abs Auto 0.01 X10*3/uL (0.00-0.03); Imm Gran Pct Auto 0.2 % (0.0-0.4); Lymphocytes Absolute Auto 1.4 X10*3/uL (1.2-4.9); Lymphocytes Percent Auto 25.3 % (20-40); Mean Corpuscular HGB Conc 33.5 g/dl (31.0-36.0); Mean Corpuscular Hemoglobin 29.9 pg (27.0-33.0); Mean Corpuscular Volume 89.1 fL (80-98); Mean Platelet Volume 9.7 fL (9.4-12.4); Monocytes Absolute Auto 0.6 X10*3/uL (0.1-1.2); Monocytes Percent Auto 10.2 % (2-11); Neutrophils Absolute Auto 2.9 X10*3/uL (2.0-8.3); Neutrophils Percent Auto 54.4 % (45-73); Platelet Count 204 X10*3/uL (160-400); Red Blood Count 3.48 X10*6/uL (4.60-5.80); Red Cell Distribution Width 13.5 % (11.0-16.0); White Blood Count 5.4 X10*3/uL (4.8-10.8)
[2021-04-12 23:14] LABS: B Type Natriuretic Peptide 1685 pg/mL (<100)
[2021-04-12 23:30] LABS: Alanine Aminotransferase 10 U/L (0-40); Albumin Level 3.3 g/dL (3.5-5.0); Alkaline Phosphatase 204 U/L (39-117); Anion Gap 15 (12-20); Aspartate Amino Transferase 18 U/L (5-37); Bilirubin Total 0.8 mg/dL (0.0-1.0); Blood Urea Nitrogen 50 mg/dL (9-16); Calcium 8.5 mg/dL (8.4-10.2); Carbon Dioxide 30 mmol/L (22-29); Chloride 93 mmol/L (96-108); Creatinine Clr Calc Pharmacy 10.7; Estimated Glomerular Filt Rate 9; Glucose Random 178 mg/dL (60-115); Lipase 39 U/L (8-78); Magnesium 1.7 mg/dL (1.6-2.6); Potassium 4.3 mmol/L (3.3-5.1); Sodium 134 mmol/L (135-145); Total Protein 7.1 g/dL (6.5-8.0)
--- NOTE | 2021-04-13 01:12 | ED.ABDPAIN ---
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 On questioning the gentleman he denies any diarrhea and states his last bowel movement was today, he reports that he ate dinner without difficulty and has not experienced any nausea or vomiting. In addition, patient denies any sore throat new cough, shortness of breath, or chest pain. He states that the abdominal discomfort is more like he feels as though his stomach is ?tossing and turning?. He does describe a headache on the left side but states that he has been having problems with that for 2 years. Related Data Home Medications Medication Instructions Recorded Confirmed aspirin 81 mg tablet,delayed 1 tab PO QPM 12/25/20 12/25/20 release calcium acetate(phosphat bind) 667 1 cap PO DAILY 12/25/20 12/25/20 mg capsule clonazepam 1 mg tablet 0.5 - 1 mg PO QID PRN 12/25/20 12/25/20 glecaprevir 100 mg-pibrentasvir 40 3 tab PO DAILY 12/25/20 12/25/20 mg tablet (Mavyret) hydralazine 100 mg tablet 1 tab PO TID 12/25/20 12/25/20 metoprolol succinate 100 mg 1 tab PO QAM 12/25/20 12/25/20 tablet,extended release 24 hr metronidazole 500 mg tablet 1 tab PO Q12H 12/25/20 12/25/20 paroxetine HCl 10 mg tablet 1 tab PO QAM 12/25/20 12/25/20 polyvinyl alcohol 1.4 % eye drops 1 - 2 drp OPHTHALMIC-LEFT QID PRN 12/25/20 12/25/20 (Artificial Tears (polyvinyl alcohol)) tramadol 50 mg tablet 1 tab PO Q12H PRN 12/25/20 12/25/20 valsartan 160 mg tablet 2 tab PO QAM 12/25/20 12/25/20 vitamin B complex and vitamin C 1 cap PO DAILY 12/25/20 12/25/20 no.20-folic acid 1 mg capsule (Triphrocaps) Allergies Allergy/AdvReac Type Severity Reaction Status Date / Time No Known Allergies Allergy Mild N/A Verified 08/10/20 02:42 Review of Systems Review of Systems Pertinent positives and negatives as stated in HPI 10 point review of systems is otherwise negative. Physical Exam Vital Signs: Vital Signs: Last Vital Signs Temp 98.2 F 04/12/21 22:11 Pulse 77 04/13/21 02:33 Resp 16 04/13/21 02:33 BP 152/86 H 04/13/21 02:33 Pulse Ox 96 04/13/21 02:33 Body Mass Index 27.6 VITAL SIGNS: Reviewed. GENERAL: Well developed, well nourished, in no acute distress. HEAD: Normocephalic/atraumatic EYES: OD-PERRLA, EOMI, patient has large retro-orbital mass at baseline on the left and has previously been evaluated in [place]. LUNGS: Normal breath sounds. No adventitious sounds or accessory muscle use. SpO2<95> CARDIOVASCULAR: Regular rate and rhythm without noted murmurs, no JVD or lower extremity edema. ABDOMEN: Obese, Soft, non-tender, non-distended with bowel sounds. MUSCULOSKELETAL: No tenderness, deformities, or effusions noted on gross inspection. EXTREMITIES: No cyanosis, clubbing or edema. SKIN: Inspection of the skin reveals no rashes, ulcerations, jaundice, pallor, or petechiae. NEUROLOGIC: Alert and oriented x 4. Right-sided hemiparesis at baseline, but otherwise left side patient has normal strength and sensation Course Course Course Narrative: 71-year-old male with history and clinical presentation suggestive of mild GI upset but no evidence to suggest SBO, ileus, colitis/diverticulitis. Review of all investigations other than noted BNP of 16 85, however this is felt to be more consistent with patient's underlying ESRD as patient otherwise has no clinical symptoms of fluid overload and is not hypoxic. On review of the chest x-ray although there is mention of possible mild edema, but given patient's planned dialysis in the morning and absence of hypoxia or subjective complaints shortness of breath patient will be discharged for dialysis in the morning. MDM - Abdominal Pain Lab Data Result diagrams: 04/12/21 22:41 04/12/21 22:41 Labs: Lab Results 04/12/21 04/12/21 04/12/21 Range/Units 22:41 22:41 22:41 WBC 5.4 (4.8-10.8) X10*3/uL RBC 3.48 L (4.60-5.80) X10*6/uL Hgb 10.4 L (14.0-18.0) g/dl Hct 31.0 L (42-52) % MCV 89.1 (80-98) fL MCH 29.9 (27.0-33.0) pg MCHC 33.5 (31.0-36.0) g/dl RDW 13.5 (11.0-16.0) % Plt Count 204 (160-400) X10*3/uL MPV 9.7 (9.4-12.4) fL Immature Gran % (Auto) 0.2 (0.0-0.4) % Neut % (Auto) 54.4 (45-73) % Lymph % (Auto) 25.3 (20-40) % [place] % (Auto) 10.2 (2-11) % Eos % (Auto) 9.3 H (0-4) % Baso % (Auto) 0.6 (0-2) % Lymph # (Auto) 1.4 (1.2-4.9) X10*3/uL [place] # (Auto) 0.6 (0.1-1.2) X10*3/uL Eos # (Auto) 0.5 H (0.0-0.4) X10*3/uL Baso # (Auto) 0.0 (0.0-0.2) X10*3/uL Abs Immat Gran (auto) 0.01 (0.00-0.03) X10*3/uL Absolute Neuts (auto) 2.9 (2.0-8.3) X10*3/uL Absolute Nucleated RBC 0.000 (0.0-0.012) X10*3/uL Nucleated RBC % (auto) 0.0 (0.0-0.2) /100WBC Sodium 134 L (135-145) mmol/L Potassium 4.3 (3.3-5.1) mmol/L Chloride 93 L (96-108) mmol/L Carbon Dioxide 30 H (22-29) mmol/L Anion Gap 15 (12-20) BUN 50 H (9-16) mg/dL Creatinine 6.24 H* (0.5-1.4) mg/dL Estim Creat Clear Calc 10.7 Estimated GFR 9 Random Glucose 178 H (60-115) mg/dL Calcium 8.5 (8.4-10.2) mg/dL Magnesium 1.7 (1.6-2.6) mg/dL Total Bilirubin 0.8 (0.0-1.0) mg/dL AST 18 (5-37) U/L ALT 10 (0-40) U/L Alkaline Phosphatase 204 H (39-117) U/L B-Natriuretic Peptide 1685 H (<100) pg/mL Total Protein 7.1 (6.5-8.0) g/dL Albumin 3.3 L (3.5-5.0) g/dL Lipase 39 (8-78) U/L Discharge Plan Discharge Clinical Impression: Abdominal discomfort Patient Disposition: Home, Self-Care Instructions: Abdominal Pain (ED) Additional Instructions: 1. Reanude todos los medicamentos caseros seg?n lo prescrito. 2. Contin?e con martin di?lisis programada por la ma?joe. 3. Arthur un seguimiento con martin proveedor de atenci?n primaria para estrellita reevaluaci?n en 2-3 d?as. Regrese a la conrad de emergencias por un empeoramiento orlando de los s?ntomas. Prescriptions: No Action paroxetine HCl 10 mg tablet 1 tab PO QAM RF: 0 polyvinyl alcohol [Artificial Tears (polyvin alc)] 1.4 % drops 1 - 2 drp ophthalmic-Left QID PRN (Reason: Dry Eye(S)) RF: 0 metoprolol succinate 100 mg tablet extended release 24 hr 1 tab PO QAM RF: 0 metronidazole 500 mg tablet 1 tab PO Q12H RF: 0 aspirin 81 mg tablet,delayed release (DR/EC) 1 tab PO QPM RF: 0 hydralazine 100 mg tablet 1 tab PO TID RF: 0 calcium acetate(phosphat bind) 667 mg capsule 1 cap PO DAILY RF: 0 clonazepam 1 mg tablet 0.5 - 1 mg PO QID PRN (Reason: Anxiety) RF: 0 tramadol 50 mg tablet 1 tab PO Q12H PRN (Reason: pain) RF: 0 valsartan 160 mg tablet 2 tab PO QAM RF: 0 Mavyret 100-40 mg tablet 3 tab PO DAILY RF: 0 Triphrocaps 1 mg capsule 1 cap PO DAILY RF: 0 Referrals: Physician,Unknown [Primary Care Provider] - 2 days Print Language: Tunisian [facility] Past Medical History Source: nursing notes reviewed Medical History Acute CVA (cerebrovascular accident) Atypical chest pain AV fistula CAD (coronary artery disease) Carpal tunnel syndrome CKD (chronic kidney disease) Diabetes Dialysis patient ESRD (end stage renal disease) GERD (gastroesophageal reflux disease) Hepatitis C History of stroke HLD (hyperlipidemia) HTN (hypertension) Non-ischemic cardiomyopathy HUGH (obstructive sleep apnea) Osteoarthritis Peripheral vascular disease Pneumonia Surgical History H/O colectomy History of hip surgery History of hip surgery Social History Social History Household Members: Family Housing: Apartment Do you presently have visiting nurse or other home services: No Alcohol intake: never Patient Tobacco Use Status: Never used Tobacco Advance Directives: No Advance Directives Information Provided: Yes service: No Current occupational status: disabled
--- NOTE | 2021-04-13 01:14 | PC.NURSE ---
PT REATING IN BED, UPRIGHT SEATED POSITION. NO VOMITING OR NAUSEA. PT REPORTS HE ATE A FULL DINNER EARLIER. PT CURRENTLY NOT EXPERIENCING ABDOMINAL DISCOMFORT.
[2021-04-13] MEDS: Acetaminophen 325 MG TABLET 975 MG PO (02:25)
[2021-04-13 02:33] VITALS: BP 152/86; PULSE 77; RESP 16; O2SAT 96
--- NOTE | 2021-04-13 04:02 | PC.NURSE ---
SPOKE WITH [facility] PT'S CLERICAL SUPPORT SPECIALIST. PT TO GO HOME BY CHAIR MILI.
--- NOTE | 2021-04-13 04:13 | PC.NURSE ---
EMS ARRIVED TO TRANSPORT PT TO HIS HOME.
== END 2021-04-13 04:38 | disposition home or self-care (01) ==
PROVIDERS: Emergency Provider Student in an Organized Health Care Education/Training Program
DX: R10.9 Unspecified abdominal pain (principal); R06.02 Shortness of breath; I12.0 Hypertensive chronic kidney disease with stage 5 chronic kidney disease or end stage renal disease; E11.22 Type 2 diabetes mellitus with diabetic chronic kidney disease; N18.6 End stage renal disease; Z99.2 Dependence on renal dialysis; Z86.73 Personal history of transient ischemic attack (TIA), and cerebral infarction without residual deficits
CPT/HCPCS: 36415; 71045; 80053; 83690; 83735; 83880; 85025; 99283; 99284

== ENCOUNTER 2021-05-14 12:23 | Emergency (ER) | payer MEDICARE, MEDICAID, SELFPAY ==
--- NOTE | ~2021-05-14 | XR_ITS ---
EXAMINATION: XR CHEST CLINICAL INFORMATION: Weakness COMPARISON: Previous chest x-rays most recent 04/13/2021 TECHNIQUE: Frontal view of the chest was obtained. FINDINGS: The cardiac silhouette is enlarged. There is pulmonary venous redistribution. There is airspace disease at the right lung base and a small right pleural effusion. Findings are similar to March 2021 exam. Differential would include CHF with asymmetric right-sided pulmonary edema and pneumonia. Clinical correlation recommended. There is a vascular stent in the left upper arm. There are degenerative changes of the spine. The vertebral bodies appear sclerotic. XR/XR chest 1V IMPRESSION: Stable chest x-ray exam from March 2021. Differential would include CHF with asymmetric right-sided pulmonary edema and pneumonia.
[2021-05-14 12:33] VITALS: BP 145/73; PULSE 72; RESP 16; TEMP 36.6; O2SAT 98; BMI 25.1
--- NOTE | 2021-05-14 14:21 | ECG_ITS ---
Test Reason : WEAK Blood Pressure : / mmHG Vent. Rate : 065 BPM Atrial Rate : 065 BPM P-R Int : 158 ms QRS Dur : 088 ms QT Int : 452 ms P-R-T Axes : 023 -25 054 degrees QTc Int : 470 ms Normal sinus rhythm Minimal voltage criteria for LVH, may be normal variant Inferior infarct (cited on or before 17-DEC-2020) Abnormal ECG When compared with ECG of 20-MAR-2021 00:02, Premature ventricular complexes are no longer Present Referred By: Fernanda Cannon Electronically Signed By:SLAVA DOVE
--- NOTE | 2021-05-14 14:23 | ED.GENADULT ---
HPI - General Adult General Chief complaint: General Medical Stated complaint: BODY PAIN,MISSED DIALYSIS Time Seen by Provider: 05/14/21 14:01 History of Present Illness HPI narrative: Patient is a 71-year-old male with a history of end-stage renal disease history of diabetes. No fever no chills no cough no congestion or upper respiratory symptoms. No diaphoresis. Patient from home. Patient denies any focal weakness. Patient is due for dialysis today. At 05:00 he missed the bus. Decided to come to the emergency department instead. Feels generalized malaise. Patient does not know where he gets dialysis. Patient does not know who his dialysis doctor is. He does have a history of diabetes. He has been compliant with medication. Related Data Home Medications Medication Instructions Recorded Confirmed aspirin 81 mg tablet,delayed 1 tab PO QPM 12/25/20 12/25/20 release calcium acetate(phosphat bind) 667 1 cap PO DAILY 12/25/20 12/25/20 mg capsule clonazepam 1 mg tablet 0.5 - 1 mg PO QID PRN 12/25/20 12/25/20 glecaprevir 100 mg-pibrentasvir 40 3 tab PO DAILY 12/25/20 12/25/20 mg tablet (Mavyret) hydralazine 100 mg tablet 1 tab PO TID 12/25/20 12/25/20 metoprolol succinate 100 mg 1 tab PO QAM 12/25/20 12/25/20 tablet,extended release 24 hr metronidazole 500 mg tablet 1 tab PO Q12H 12/25/20 12/25/20 paroxetine HCl 10 mg tablet 1 tab PO QAM 12/25/20 12/25/20 polyvinyl alcohol 1.4 % eye drops 1 - 2 drp OPHTHALMIC-LEFT QID PRN 12/25/20 12/25/20 (Artificial Tears (polyvinyl alcohol)) tramadol 50 mg tablet 1 tab PO Q12H PRN 12/25/20 12/25/20 valsartan 160 mg tablet 2 tab PO QAM 12/25/20 12/25/20 vitamin B complex and vitamin C 1 cap PO DAILY 12/25/20 12/25/20 no.20-folic acid 1 mg capsule (Triphrocaps) Allergies Allergy/AdvReac Type Severity Reaction Status Date / Time No Known Allergies Allergy Mild N/A Verified 08/10/20 02:42 Review of Systems Review of Systems: No fever no chills no chest pain or shortness of breath no diaphoresis. Patient is vaccinated for COVID Yes all other systems are reviewed and are negative [facility] [place] Past Medical History Attestation statement: The following information was validated with the patient. Medical History Acute CVA (cerebrovascular accident) Atypical chest pain AV fistula CAD (coronary artery disease) Carpal tunnel syndrome CKD (chronic kidney disease) Diabetes Dialysis patient ESRD (end stage renal disease) GERD (gastroesophageal reflux disease) Hepatitis C History of stroke HLD (hyperlipidemia) HTN (hypertension) Non-ischemic cardiomyopathy HUGH (obstructive sleep apnea) Osteoarthritis Peripheral vascular disease Pneumonia Surgical History H/O colectomy History of hip surgery History of hip surgery Social History Social History Household Members: Family Housing: Apartment Do you presently have visiting nurse or other home services: No Alcohol intake: never Patient Tobacco Use Status: Never used Tobacco Advance Directives: No Advance Directives Information Provided: No service: No Current occupational status: disabled Physical Exam Vital Signs: Vital Signs: Last Vital Signs Temp 97.9 F 05/14/21 12:33 Pulse 72 05/14/21 12:33 Resp 16 05/14/21 12:33 BP 145/73 H 05/14/21 12:33 Pulse Ox 98 05/14/21 12:33 Body Mass Index 25.1 Appearance: Alert. Oriented X3. No acute distress. Eyes: Right eye reactive to light., gross tumor over the left eye. ENT: Pharynx normal. Neck: Normal inspection. Neck supple. No lymph nodes noted. No crepitus CVS: Normal heart rate and rhythm. Pulses normal. Normal S1 and S2 Respiratory: No respiratory distress. Breath sounds normal. No Wheezing. No rales Abdomen: Soft and nontender. No rigidity. No distention. good BS x4 Skin: Skin warm and dry. Normal skin color. Normal skin turgor. Extremities: No lower extremity edema. Neurovascular intact to all extremities. No Lacerations. No Rash Neuro: Oriented X 3. No motor deficit. No sensory deficit. Moving all extermities. No slurred speech Medical Decision Making MDM Narrative Medical decision making narrative: Patient has symptoms consistent with missing dialysis. Patient's creatinine elevated consistent with end-stage renal disease. Patient's potassium is in the 4 range. Chest x-ray showed no overt congestive heart failure. Patient's O2 sat remained well. Patient's calcium Mag phos consistent with end-stage renal disease. Patient's case discussed with Nephrology. Arrange for patient to get dialysis at 05:15 tomorrow morning. Nephrology will arrange for a ride for patient. In stable condition. Will discharge home. Lab Data Result diagrams: 05/14/21 14:48 05/14/21 15:29 Labs: Lab Results 05/14/21 05/14/21 Range/Units 14:48 15:29 WBC 5.0 (4.8-10.8) X10*3/uL RBC 3.58 L (4.60-5.80) X10*6/uL Hgb 10.9 L (14.0-18.0) g/dl Hct 32.6 L (42-52) % MCV 91.1 (80-98) fL MCH 30.4 (27.0-33.0) pg MCHC 33.4 (31.0-36.0) g/dl RDW 13.1 (11.0-16.0) % Plt Count 240 (160-400) X10*3/uL MPV 10.3 (9.4-12.4) fL Immature Gran % (Auto) 0.4 (0.0-0.4) % Neut % (Auto) 54.7 (45-73) % Lymph % (Auto) 21.1 (20-40) % [place] % (Auto) 11.1 H (2-11) % Eos % (Auto) 11.3 H (0-4) % Baso % (Auto) 1.4 (0-2) % Lymph # (Auto) 1.1 L (1.2-4.9) X10*3/uL [place] # (Auto) 0.6 (0.1-1.2) X10*3/uL Eos # (Auto) 0.6 H (0.0-0.4) X10*3/uL Baso # (Auto) 0.1 (0.0-0.2) X10*3/uL Abs Immat Gran (auto) 0.02 (0.00-0.03) X10*3/uL Absolute Neuts (auto) 2.7 (2.0-8.3) X10*3/uL Absolute Nucleated RBC 0.000 (0.0-0.012) X10*3/uL Nucleated RBC % (auto) 0.0 (0.0-0.2) /100WBC Sodium 129 L (135-145) mmol/L Potassium 4.1 (3.3-5.1) mmol/L Chloride 90 L (96-108) mmol/L Carbon Dioxide 28 (22-29) mmol/L Anion Gap 15 (12-20) BUN 52 H (9-16) mg/dL Creatinine 8.33 H* (0.5-1.4) mg/dL Estim Creat Clear Calc 8.5 Estimated GFR 6 Random Glucose 120 H (60-115) mg/dL Calcium 7.9 L D (8.4-10.2) mg/dL Phosphorus 3.1 (2.7-4.5) mg/dL Magnesium 1.6 (1.6-2.6) mg/dL Discharge Plan Discharge Clinical Impression: ESRD on dialysis Patient Disposition: Home, Self-Care Instructions: End Stage Kidney Disease (ED) Prescriptions: No Action paroxetine HCl 10 mg tablet 1 tab PO QAM RF: 0 polyvinyl alcohol [Artificial Tears (polyvin alc)] 1.4 % drops 1 - 2 drp ophthalmic-Left QID PRN (Reason: Dry Eye(S)) RF: 0 metoprolol succinate 100 mg tablet extended release 24 hr 1 tab PO QAM RF: 0 metronidazole 500 mg tablet 1 tab PO Q12H RF: 0 aspirin 81 mg tablet,delayed release (DR/EC) 1 tab PO QPM RF: 0 hydralazine 100 mg tablet 1 tab PO TID RF: 0 calcium acetate(phosphat bind) 667 mg capsule 1 cap PO DAILY RF: 0 clonazepam 1 mg tablet 0.5 - 1 mg PO QID PRN (Reason: Anxiety) RF: 0 tramadol 50 mg tablet 1 tab PO Q12H PRN (Reason: pain) RF: 0 valsartan 160 mg tablet 2 tab PO QAM RF: 0 Mavyret 100-40 mg tablet 3 tab PO DAILY RF: 0 Triphrocaps 1 mg capsule 1 cap PO DAILY RF: 0 Referrals: Physician,Unknown [Primary Care Provider] - 2 days (Please make sure you get dialysis tomorrow. A bus ride to the dialysis has been arranged for you at 05:15 in the morning.) Print Language: [place]guillan
[2021-05-14 14:53] LABS: MANUAL DIFF FLAG NO
[2021-05-14 15:00] LABS: Basophils Absolute Auto 0.1 X10*3/uL (0.0-0.2); Basophils Percent Auto 1.4 % (0-2); Eosinophils Absolute Auto 0.6 X10*3/uL (0.0-0.4); Eosinophils Percent Auto 11.3 % (0-4); Hematocrit 32.6 % (42-52); Hemoglobin 10.9 g/dl (14.0-18.0); Imm Gran Abs Auto 0.02 X10*3/uL (0.00-0.03); Imm Gran Pct Auto 0.4 % (0.0-0.4); Lymphocytes Absolute Auto 1.1 X10*3/uL (1.2-4.9); Lymphocytes Percent Auto 21.1 % (20-40); Mean Corpuscular HGB Conc 33.4 g/dl (31.0-36.0); Mean Corpuscular Hemoglobin 30.4 pg (27.0-33.0); Mean Corpuscular Volume 91.1 fL (80-98); Mean Platelet Volume 10.3 fL (9.4-12.4); Monocytes Absolute Auto 0.6 X10*3/uL (0.1-1.2); Monocytes Percent Auto 11.1 % (2-11); Neutrophils Absolute Auto 2.7 X10*3/uL (2.0-8.3); Neutrophils Percent Auto 54.7 % (45-73); Platelet Count 240 X10*3/uL (160-400); Red Blood Count 3.58 X10*6/uL (4.60-5.80); Red Cell Distribution Width 13.1 % (11.0-16.0)
[2021-05-14 15:56] LABS: Anion Gap 15 (12-20); Blood Urea Nitrogen 52 mg/dL (9-16); Calcium 7.9 mg/dL (8.4-10.2); Carbon Dioxide 28 mmol/L (22-29); Chloride 90 mmol/L (96-108); Creatinine Clr Calc Pharmacy 8.5; Estimated Glomerular Filt Rate 6; Glucose Random 120 mg/dL (60-115); Magnesium 1.6 mg/dL (1.6-2.6); Phosphorus 3.1 mg/dL (2.7-4.5); Potassium 4.1 mmol/L (3.3-5.1); Sodium 129 mmol/L (135-145)
--- NOTE | 2021-05-14 16:09 | PC.NURSE ---
Called Nephrology at 1530 per ,awaiting call back. At 1609 placed a second call out,still awaiting call back.
--- NOTE | 2021-05-14 18:20 | PC.NURSE ---
continuing to await ems transport home
== END 2021-05-14 19:50 | disposition home or self-care (01) ==
PROVIDERS: Emergency Provider Emergency Medicine Emergency Medical Services
DX: M79.10 Myalgia, unspecified site (principal); N18.6 End stage renal disease; I13.2 Hypertensive heart and chronic kidney disease with heart failure and with stage 5 chronic kidney disease, or end stage renal disease; I25.10 Atherosclerotic heart disease of native coronary artery without angina pectoris; E11.22 Type 2 diabetes mellitus with diabetic chronic kidney disease; Z79.4 Long term (current) use of insulin; Z99.2 Dependence on renal dialysis; Z79.899 Other long term (current) drug therapy
CPT/HCPCS: 36415; 71045; 80048; 83735; 84100; 85025; 93005; 99283; 99284

== ENCOUNTER 2021-05-23 11:35 | Emergency (ER) | payer MEDICARE, MEDICAID, SELFPAY ==
--- NOTE | ~2021-05-23 | CT_ITS ---
EXAMINATION: CT HEAD WITHOUT CONTRAST CLINICAL INFORMATION: AMS. COMPARISON: None TECHNIQUE: Contiguous axial imaging was performed from the skull base to vertex without intravenous administration of contrast. This CT examination was performed using dose optimization techniques as appropriate, variously including the following: *Automated exposure control *Adjustment of mA and/or kV according to patient size (this includes techniques or standardized protocols for targeted exams where dose is matched to indication/reason for exam; i.e. extremities or head) *Use of iterative reconstruction technique DLP: 853 mGy-cm FINDINGS: There is no evidence of acute intracranial hemorrhage or territorial infarction. There is a lacunar infarction in the left centrum semiovale while extending to the external capsule There is a large mass in the left infratemporal space, left anterior temporal lobe and left lateral orbit similar to previous study from 09/17/2019. The mass appears to have grown in size in the infratemporal fossa with mild anterior shift of left lateral maxillary wall anteriorly increase in the orbital component with significant proptosis of the left optic globe and extension to the left parasellar region into the posterior fossa similar to previous study. There is now more edema in the left parietal temporal lobe. Otherwise the the sahu to white matter differentiation is well preserved. No extra-axial fluid collections are identified. The ventricles are enlarged in size but symmetrical. There is diffuse periventricular hypodensity suggestive of chronic small vessel ischemic changes. The osseous structures and soft tissues are normal. The mastoid air cells and visualized portions of the paranasal sinuses are well aerated. CT/CT head/brain wo con IMPRESSION: No acute intracranial bleed or acute infarct. Large multi compartmental mass with prominent extension to left orbit with proptosis, 2 anterior mesial temporal lobe extending posteriorly in the parasellar region to the infratentorial CP angle and in the infratemporal fossa resolving anterior shift of the lateral maxillary wall. Overall the mass has grown in size. There is moderate edema in the left temporoparietal lobe. Lacunar infarction left centrum semiovale and extending to the inferior axial capsule. Moderate lateral ventricular enlargement with mild asymmetric left lateral ventricle appearing larger. Diffuse chronic small vessel ischemic changes.
--- NOTE | ~2021-05-23 | XR_ITS ---
EXAMINATION: XR CHEST CLINICAL INFORMATION: AMS COMPARISON: 05/14/2021. TECHNIQUE: Frontal view of the chest was obtained. FINDINGS: The lungs are hypoexpanded with patchy opacity in the right lower lung. There is mild prominence of vascularity also the heart size enlarged. No gross bony abnormality seen. XR/XR chest 1V IMPRESSION: Patchy opacity right lower lobe likely combination of infiltrate/atelectasis or effusion. Similar findings are seen on 05/14/2023. Prominent bilateral pulmonary vascularity markings are noted but no congestion.
[2021-05-23 11:55] VITALS: BP 131/78; BP 152/67; PULSE 105; PULSE 98; RESP 26; TEMP 37.1; O2SAT 97; O2SAT 99; BMI 31.9
--- NOTE | 2021-05-23 12:01 | ECG_ITS ---
Test Reason : AMS Blood Pressure : / mmHG Vent. Rate : 102 BPM Atrial Rate : 102 BPM P-R Int : 138 ms QRS Dur : 084 ms QT Int : 370 ms P-R-T Axes : 046 -09 081 degrees QTc Int : 482 ms Sinus tachycardia with frequent , and consecutive Premature ventricular complexes Abnormal ECG When compared with ECG of 14-MAY-2021 15:02, Premature ventricular complexes are now Present Vent. rate has increased BY 37 BPM Referred By: Annette Mcmahan Electronically Signed By:SLAVA DOVE
--- NOTE | 2021-05-23 12:07 | ED.AMS ---
HPI - Altered Mental Status General Chief Complaint: Altered Mental Status Stated Complaint: BLEEDING SHUNT FROM DIALYSIS Time Seen by Provider: 05/23/21 12:00 Source: patient and EMS Mode of arrival: EMS Limitations: altered mental status History of Present Illness MD complaint: altered mental status and decreased responsiveness Onset (ago): unknown Timing confirmed by: caregiver Consistency of symptoms: unknown Context: unknown Associated symptoms: denies other symptoms Related Data Home Medications Medication Instructions Recorded Confirmed aspirin 81 mg tablet,delayed 1 tab PO QPM 12/25/20 05/23/21 release calcium acetate(phosphat bind) 667 1 cap PO DAILY 12/25/20 05/23/21 mg capsule hydralazine 100 mg tablet 1 tab PO TID 12/25/20 05/23/21 metoprolol succinate 100 mg 1 tab PO QAM 12/25/20 05/23/21 tablet,extended release 24 hr paroxetine HCl 10 mg tablet 1 tab PO QAM 12/25/20 05/23/21 valsartan 160 mg tablet 2 tab PO QAM 12/25/20 05/23/21 omeprazole 20 mg capsule,delayed 1 cap PO BID 05/23/21 05/23/21 release oxycodone 5 mg tablet 5 mg PO Q8H PRN 05/23/21 05/23/21 vitamin B complex and vitamin C 1 cap PO QAM 05/23/21 05/23/21 no.20-folic acid 1 mg capsule (Triphrocaps) Allergies Allergy/AdvReac Type Severity Reaction Status Date / Time No Known Allergies Allergy Mild N/A Verified 08/10/20 02:42 Review of Systems Review of Systems: ROS unable to be obtained due to altered mental status [facility] Past Medical History Attestation statement: The following information was validated with the patient. Medical History Acute CVA (cerebrovascular accident) Atypical chest pain AV fistula CAD (coronary artery disease) Carpal tunnel syndrome CKD (chronic kidney disease) Diabetes Dialysis patient ESRD (end stage renal disease) GERD (gastroesophageal reflux disease) Hepatitis C History of stroke HLD (hyperlipidemia) HTN (hypertension) Non-ischemic cardiomyopathy HUGH (obstructive sleep apnea) Osteoarthritis Peripheral vascular disease Pneumonia Surgical History H/O colectomy History of hip surgery History of hip surgery Social History Social History Household Members: Family Housing: Apartment Do you presently have visiting nurse or other home services: No Alcohol intake: never Patient Tobacco Use Status: Never used Tobacco Advance Directives: Yes Advance Directives Information Provided: No Advance Directives on File: No service: No Current occupational status: disabled Physical Exam Vital Signs: Vital Signs: Last Vital Signs Temp 98.7 F 05/23/21 11:55 Pulse 105 H 05/23/21 11:55 Resp 26 H 05/23/21 11:55 BP 152/67 H 05/23/21 11:55 Pulse Ox 99 05/23/21 11:55 Body Mass Index 31.9 Appearance: Alert. Oriented X1. Mild acute distress. Eyes: Pupils equal, round and reactive to light. L eye bulging with areas of scabbed lesions no vesicles no cellulitis ENT: Pharynx normal. Neck: Normal inspection. Neck supple. CVS: Normal heart rate and rhythm. Pulses normal. Respiratory: No respiratory distress. Breath sounds decreased in the bases Abdomen: Soft and nontender. does not grimace Skin: Skin warm and dry. Normal skin color. Normal skin turgor. Extremities: No lower extremity edema. Neuro: Oriented X 1. No motor deficit. No sensory deficit. Course Course Course Narrative: at this time given persistent findings on CXR from 05/14 and he has had HD with AMS infection suspected 156pm increased swelling of orbit IV dexamethasone ordered, prior refusal of surgery, HCP reprotedly is Efraín Miranda - [phone] MOLST on file DNR/DNI as of 2019 unable to reach HCP - sent right to voicemail when asked the patient states he does not want surgery even if the tumor is going to kill him, I know in the past he has refused and did not follow up with appointments, I do not think he has pursued any treatment in the past and did not want treatment review of records - we have discussed with Yulia in the past he never followed up refused treatment, [facility] cannot treat this was instructed to go to [facility] but the patient is refusing care there MDM - Altered Mental Status MDM Narrative Medical decision making narrative: 71 yo male with ESRD on HD T Th S, neoplasm inoperable L eye, anemia, HTN, was at HD and they noted he was altered, unknown last well - at this time will need labs, CT head, CXR rule out metabolic/infectious causes, dispo per results and findings. Lab Data Result diagrams: 05/23/21 12:17 05/23/21 12:17 Labs: Lab Results 05/23/21 05/23/21 05/23/21 Range/Units 12:17 12:17 12:17 WBC 5.9 (4.8-10.8) X10*3/uL RBC 3.14 L (4.60-5.80) X10*6/uL Hgb 9.7 L (14.0-18.0) g/dl Hct 27.7 L (42-52) % MCV 88.2 (80-98) fL MCH 30.9 (27.0-33.0) pg MCHC 35.0 (31.0-36.0) g/dl RDW 14.0 (11.0-16.0) % Plt Count 210 (160-400) X10*3/uL MPV 9.5 (9.4-12.4) fL Immature Gran % (Auto) 0.5 H (0.0-0.4) % Neut % (Auto) 75.6 H (45-73) % Lymph % (Auto) 11.6 L (20-40) % [place] % (Auto) 11.8 H (2-11) % Eos % (Auto) 0.2 (0-4) % Baso % (Auto) 0.3 (0-2) % Lymph # (Auto) 0.7 L (1.2-4.9) X10*3/uL [place] # (Auto) 0.7 (0.1-1.2) X10*3/uL Eos # (Auto) 0.0 (0.0-0.4) X10*3/uL Baso # (Auto) 0.0 (0.0-0.2) X10*3/uL Abs Immat Gran (auto) 0.03 (0.00-0.03) X10*3/uL Absolute Neuts (auto) 4.4 (2.0-8.3) X10*3/uL Absolute Nucleated RBC 0.000 (0.0-0.012) X10*3/uL Nucleated RBC % (auto) 0.0 (0.0-0.2) /100WBC O2 Saturation ABG pH at Pt Temp ABG pH (Temp Correct) ABG pCO2 at Pt Temp ABG pCO2 (Temp Corrct ABG pO2 at Pt Temp ABG pO2 (Temp Correct ABG HCO3 ABG Base Excess (Actual) VBG pH 7.57 H (7.32-7.43) VBG pCO2 34 mmHg VBG pO2 69 mmHg VBG HCO3 31 H (22-26) mmol/L VBG O2 Saturation 94.0 % VBG Base Excess 9.6 mmol/L Sodium 135 (135-145) mmol/L Potassium 4.1 (3.3-5.1) mmol/L Chloride 94 L (96-108) mmol/L Carbon Dioxide 28 (22-29) mmol/L Anion Gap 17 (12-20) BUN 30 H (9-16) mg/dL Creatinine 4.22 H* (0.5-1.4) mg/dL Estim Creat Clear Calc 18.2 Estimated GFR 14 Random Glucose 109 (60-115) mg/dL Lactic Acid (0.5-2.0) mmol/L Calcium 8.3 L (8.4-10.2) mg/dL Total Bilirubin 0.7 (0.0-1.0) mg/dL Direct Bilirubin 0.3 (0.0-0.5) mg/dL AST 21 (5-37) U/L ALT 8 (0-40) U/L Alkaline Phosphatase 232 H (39-117) U/L Troponin I High Sens (<3.5-35.0) ng/L Total Protein 7.5 (6.5-8.0) g/dL Albumin 3.6 (3.5-5.0) g/dL Lipase 23 (8-78) U/L COVID-19 (KATLIN) (Negative) COVID-19 Clin Com 05/23/21 05/23/21 05/23/21 Range/Units 12:18 12:18 12:18 WBC (4.8-10.8) X10*3/uL RBC (4.60-5.80) X10*6/uL Hgb (14.0-18.0) g/dl Hct (42-52) % MCV (80-98) fL MCH (27.0-33.0) pg MCHC (31.0-36.0) g/dl RDW (11.0-16.0) % Plt Count (160-400) X10*3/uL MPV (9.4-12.4) fL Immature Gran % (Auto) (0.0-0.4) % Neut % (Auto) (45-73) % Lymph % (Auto) (20-40) % [place] % (Auto) (2-11) % Eos % (Auto) (0-4) % Baso % (Auto) (0-2) % Lymph # (Auto) (1.2-4.9) X10*3/uL [place] # (Auto) (0.1-1.2) X10*3/uL Eos # (Auto) (0.0-0.4) X10*3/uL Baso # (Auto) (0.0-0.2) X10*3/uL Abs Immat Gran (auto) (0.00-0.03) X10*3/uL Absolute Neuts (auto) (2.0-8.3) X10*3/uL Absolute Nucleated RBC (0.0-0.012) X10*3/uL Nucleated RBC % (auto) (0.0-0.2) /100WBC O2 Saturation ABG pH at Pt Temp ABG pH (Temp Correct) ABG pCO2 at Pt Temp ABG pCO2 (Temp Corrct ABG pO2 at Pt Temp ABG pO2 (Temp Correct ABG HCO3 ABG Base Excess (Actual) VBG pH (7.32-7.43) VBG pCO2 mmHg VBG pO2 mmHg VBG HCO3 (22-26) mmol/L VBG O2 Saturation % VBG Base Excess mmol/L Sodium (135-145) mmol/L Potassium (3.3-5.1) mmol/L Chloride (96-108) mmol/L Carbon Dioxide (22-29) mmol/L Anion Gap (12-20) BUN (9-16) mg/dL Creatinine (0.5-1.4) mg/dL Estim Creat Clear Calc Estimated GFR Random Glucose (60-115) mg/dL Lactic Acid 1.6 (0.5-2.0) mmol/L Calcium (8.4-10.2) mg/dL Total Bilirubin (0.0-1.0) mg/dL Direct Bilirubin (0.0-0.5) mg/dL AST (5-37) U/L ALT (0-40) U/L Alkaline Phosphatase (39-117) U/L Troponin I High Sens 91.3 H* (<3.5-35.0) ng/L Total Protein (6.5-8.0) g/dL Albumin (3.5-5.0) g/dL Lipase (8-78) U/L COVID-19 (KATLIN) Negative (Negative) COVID-19 Clin Com See Note 05/23/21 Range/Units 12:23 WBC (4.8-10.8) X10*3/uL RBC (4.60-5.80) X10*6/uL Hgb (14.0-18.0) g/dl Hct (42-52) % MCV (80-98) fL MCH (27.0-33.0) pg MCHC (31.0-36.0) g/dl RDW (11.0-16.0) % Plt Count (160-400) X10*3/uL MPV (9.4-12.4) fL Immature Gran % (Auto) (0.0-0.4) % Neut % (Auto) (45-73) % Lymph % (Auto) (20-40) % [place] % (Auto) (2-11) % Eos % (Auto) (0-4) % Baso % (Auto) (0-2) % Lymph # (Auto) (1.2-4.9) X10*3/uL [place] # (Auto) (0.1-1.2) X10*3/uL Eos # (Auto) (0.0-0.4) X10*3/uL Baso # (Auto) (0.0-0.2) X10*3/uL Abs Immat Gran (auto) (0.00-0.03) X10*3/uL Absolute Neuts (auto) (2.0-8.3) X10*3/uL Absolute Nucleated RBC (0.0-0.012) X10*3/uL Nucleated RBC % (auto) (0.0-0.2) /100WBC O2 Saturation TNP ABG pH at Pt Temp TNP ABG pH (Temp Correct) TNP ABG pCO2 at Pt Temp TNP ABG pCO2 (Temp Corrct TNP ABG pO2 at Pt Temp TNP ABG pO2 (Temp Correct TNP ABG HCO3 TNP ABG Base Excess (Actual) TNP VBG pH (7.32-7.43) VBG pCO2 mmHg VBG pO2 mmHg VBG HCO3 (22-26) mmol/L VBG O2 Saturation % VBG Base Excess mmol/L Sodium (135-145) mmol/L Potassium (3.3-5.1) mmol/L Chloride (96-108) mmol/L Carbon Dioxide (22-29) mmol/L Anion Gap (12-20) BUN (9-16) mg/dL Creatinine (0.5-1.4) mg/dL Estim Creat Clear Calc Estimated GFR Random Glucose (60-115) mg/dL Lactic Acid (0.5-2.0) mmol/L Calcium (8.4-10.2) mg/dL Total Bilirubin (0.0-1.0) mg/dL Direct Bilirubin (0.0-0.5) mg/dL AST (5-37) U/L ALT (0-40) U/L Alkaline Phosphatase (39-117) U/L Troponin I High Sens (<3.5-35.0) ng/L Total Protein (6.5-8.0) g/dL Albumin (3.5-5.0) g/dL Lipase (8-78) U/L COVID-19 (KATLIN) (Negative) COVID-19 Clin Com ECG Data ECG #1: Attestation: I personally reviewed and interpreted this ECG as follows: ECG interpretation date: 05/23/21 ECG interpretation time: 12:28 Interpretation: Rate: 102 Rhythm: sinus tach with frequent PVCs and couplets [place]: left Normal P waves. Normal CINDY. Normal QRS complex. ST T wave : nonspecific, no MARTIN qTC: normal prior studies: changed from prior The study has been interpreted contemporaneously by me. . Procedures EJ/Peripheral Line Neck L: Time Out Performed: Yes Skin Cleansed in Sterile Fashion: Yes Size (gauge): 18 IV Secured and Dressing Applied: Yes Patient Tolerated Procedure: well and no complications Discharge Plan Discharge Clinical Impression: Neoplasm of eye, Altered mental status, Pneumonia, Cerebral edema Patient Disposition: Admitted As Inpatient Prescriptions: No Action paroxetine HCl 10 mg tablet 1 tab PO QAM RF: 0 metoprolol succinate 100 mg tablet extended release 24 hr 1 tab PO QAM RF: 0 aspirin 81 mg tablet,delayed release (DR/EC) 1 tab PO QPM RF: 0 hydralazine 100 mg tablet 1 tab PO TID RF: 0 calcium acetate(phosphat bind) 667 mg capsule 1 cap PO DAILY RF: 0 valsartan 160 mg tablet 2 tab PO QAM RF: 0 omeprazole 20 mg capsule,delayed release(DR/EC) 1 cap PO BID RF: 0 Triphrocaps 1 mg capsule 1 cap PO QAM RF: 0 oxycodone 5 mg Tablet 5 mg PO Q8H PRN (Reason: Pain) RF: 0
[2021-05-23 12:29] LABS: MANUAL DIFF FLAG NO
[2021-05-23] MEDS: Calcium Gluconate/NaCl,Iso-Osm 2 GM/100 ML PLAST..BAG IV (12:30)
[2021-05-23] MEDS: Sodium Bicarbonate 8.4% 50 MEQ/50 ML VIAL IVPUSH (12:30)
[2021-05-23 12:34] LABS: Basophils Percent Auto 0.3 % (0-2); Eosinophils Percent Auto 0.2 % (0-4); Hematocrit 27.7 % (42-52); Hemoglobin 9.7 g/dl (14.0-18.0); Imm Gran Abs Auto 0.03 X10*3/uL (0.00-0.03); Imm Gran Pct Auto 0.5 % (0.0-0.4); Lymphocytes Absolute Auto 0.7 X10*3/uL (1.2-4.9); Lymphocytes Percent Auto 11.6 % (20-40); Mean Corpuscular Hemoglobin 30.9 pg (27.0-33.0); Mean Corpuscular Volume 88.2 fL (80-98); Mean Platelet Volume 9.5 fL (9.4-12.4); Monocytes Absolute Auto 0.7 X10*3/uL (0.1-1.2); Monocytes Percent Auto 11.8 % (2-11); Neutrophils Absolute Auto 4.4 X10*3/uL (2.0-8.3); Neutrophils Percent Auto 75.6 % (45-73); Platelet Count 210 X10*3/uL (160-400); Red Blood Count 3.14 X10*6/uL (4.60-5.80); White Blood Count 5.9 X10*3/uL (4.8-10.8)
[2021-05-23 12:39] LABS: VBG Base Excess 9.6 mmol/L; VBG HCO3 31 mmol/L (22-26); VBG pCO2 34 mmHg; VBG pH 7.57 (7.32-7.43); VBG pO2 69 mmHg
[2021-05-23 12:40] LABS: Lactic Acid 1.6 mmol/L (0.5-2.0)
[2021-05-23 12:42] LABS: Venous Blood Gas Refer to POC result
[2021-05-23 12:56] LABS: COVID-19 Test Negative (Negative); IDNOW Serial# 9DD0AD1C; Troponin-I High Sensitivity 91.3 ng/L (<3.5-35.0)
[2021-05-23 12:57] LABS: Alanine Aminotransferase 8 U/L (0-40); Albumin Level 3.6 g/dL (3.5-5.0); Alkaline Phosphatase 232 U/L (39-117); Anion Gap 17 (12-20); Aspartate Amino Transferase 21 U/L (5-37); Bilirubin Direct 0.3 mg/dL (0.0-0.5); Bilirubin Total 0.7 mg/dL (0.0-1.0); Blood Urea Nitrogen 30 mg/dL (9-16); Calcium 8.3 mg/dL (8.4-10.2); Carbon Dioxide 28 mmol/L (22-29); Chloride 94 mmol/L (96-108); Creatinine Clr Calc Pharmacy 18.2; Estimated Glomerular Filt Rate 14; Glucose Random 109 mg/dL (60-115); Lipase 23 U/L (8-78); Potassium 4.1 mmol/L (3.3-5.1); Sodium 135 mmol/L (135-145); Total Protein 7.5 g/dL (6.5-8.0)
[2021-05-23] MEDS: cefEPime HCl 2 GM in 0.9 % Sodium Chloride 50 ML IV (14:28)
[2021-05-23] MEDS: dexAMETHasone sod phosphate 4 MG/ML VIAL 8 MG IVPUSH (14:33)
[2021-05-23] MEDS: Acetaminophen 325 MG TABLET 650 MG PO (14:36)
--- NOTE | 2021-05-23 15:00 | PHA.MEDREC ---
Pharmacy Consult ? Medication Reconciliation Pharmacy has completed the medication reconciliation. Patient had AMS, could not respond to any question. Called [facility] to verify medication. Patient utilizes on [employer]. Mariposa Davis, KristinD
[2021-05-23 15:46] VITALS: BP 169/76; PULSE 100; RESP 16; O2SAT 94
--- NOTE | 2021-05-23 15:51 | PC.NURSE ---
phlebotomy called to try ffor second set of cx, never arrived. er staff continues to attempt to obtain cx w no success. phlebotomy notified again.
[2021-05-23] MEDS: vancomycin HCL 1,000 MG in 0.9 % Sodium Chloride 250 ML 270 MG IV (16:22)
--- NOTE | 2021-05-23 16:46 | PC.NURSE ---
rhythm change to nsr
[2021-05-23 16:47] VITALS: TEMP 37.7
[2021-05-23 17:39] VITALS: BP 175/93; PULSE 94; RESP 20; O2SAT 94
[2021-05-23 19:50] VITALS: BP 176/70; PULSE 106; RESP 26; TEMP 37.6; O2SAT 94
--- NOTE | 2021-05-23 20:57 | PC.NURSE ---
report called to receiving RN at [facility] ED
--- NOTE | 2021-05-23 22:17 | PC.NURSE ---
pt transferred to CT ED via EMS at this time
== END 2021-05-23 22:57 | disposition short-term general hospital (02) ==
PROVIDERS: Emergency Provider Emergency Medicine; PCP Internal Medicine
DX: J18.9 Pneumonia, unspecified organism (principal); G93.6 Cerebral edema; R41.82 Altered mental status, unspecified; R51.9 Headache, unspecified; Z20.822 Contact with and (suspected) exposure to COVID-19; Z79.899 Other long term (current) drug therapy
CPT/HCPCS: 36415; 36556; 70450; 71045; 80048; 80076; 82803; 83605; 83690; 84484; 85025; 87040; 87635; 93005; 96365; 96366; 96367; 96375; 99285; J0610; J0692; J1100; J3370

== ENCOUNTER 2021-06-03 21:32 | Emergency (ER) | payer MEDICARE, MEDICAID, SELFPAY ==
--- NOTE | 2021-06-03 21:38 | ECG_ITS ---
Test Reason : EXTREMELY PAINFUL Blood Pressure : / mmHG Vent. Rate : 076 BPM Atrial Rate : 076 BPM P-R Int : 152 ms QRS Dur : 082 ms QT Int : 434 ms P-R-T Axes : 026 -25 052 degrees QTc Int : 488 ms Normal sinus rhythm Moderate voltage criteria for LVH, may be normal variant Inferior infarct , age undetermined Abnormal ECG When compared with ECG of 23-MAY-2021 12:19, Premature ventricular complexes are no longer Present Referred By: Manasa Beckford Electronically Signed By:SLAVA DOVE
[2021-06-03 21:39] VITALS: BP 136/70; PULSE 78; O2SAT 99
[2021-06-03 22:24] VITALS: BP 136/70; PULSE 79; RESP 16; O2SAT 100; BMI 25.2
--- NOTE | 2021-06-03 22:34 | ED_ITS ---
HPI - General Adult General Chief complaint: General Medical Stated complaint: bleeding from fistula Time Seen by Provider: 06/03/21 21:38 Source: patient and informatics scientist Mode of arrival: EMS History of Present Illness HPI narrative: 71-year-old male who is on Thursday, , Thursday dialysis schedule comes in stating that his left fistula began bleeding after it was ?caught in a door?. Patient denies any other symptoms. Related Data Home Medications Medication Instructions Recorded Confirmed aspirin 81 mg tablet,delayed 1 tab PO QPM 12/25/20 05/23/21 release calcium acetate(phosphat bind) 667 1 cap PO DAILY 12/25/20 05/23/21 mg capsule hydralazine 100 mg tablet 1 tab PO TID 12/25/20 05/23/21 metoprolol succinate 100 mg 1 tab PO QAM 12/25/20 05/23/21 tablet,extended release 24 hr paroxetine HCl 10 mg tablet 1 tab PO QAM 12/25/20 05/23/21 valsartan 160 mg tablet 2 tab PO QAM 12/25/20 05/23/21 omeprazole 20 mg capsule,delayed 1 cap PO BID 05/23/21 05/23/21 release oxycodone 5 mg tablet 5 mg PO Q8H PRN 05/23/21 05/23/21 vitamin B complex and vitamin C 1 cap PO QAM 05/23/21 05/23/21 no.20-folic acid 1 mg capsule (Triphrocaps) Allergies Allergy/AdvReac Type Severity Reaction Status Date / Time No Known Allergies Allergy Mild N/A Verified 08/10/20 02:42 Review of Systems Review of Systems: Pertinent positives and negatives as stated in HPI 10 point review of systems is otherwise negative. FOR[facility]LY [facility], [facility] Past Medical History Source: nursing notes reviewed Medical History Acute CVA (cerebrovascular accident) Atypical chest pain AV fistula CAD (coronary artery disease) Carpal tunnel syndrome CKD (chronic kidney disease) Diabetes Dialysis patient ESRD (end stage renal disease) GERD (gastroesophageal reflux disease) Hepatitis C History of stroke HLD (hyperlipidemia) HTN (hypertension) Non-ischemic cardiomyopathy HUGH (obstructive sleep apnea) Osteoarthritis Peripheral vascular disease Pneumonia Surgical History H/O colectomy History of hip surgery History of hip surgery Social History Social History Household Members: Family Housing: Apartment Do you presently have visiting nurse or other home services: No Alcohol intake: never Patient Tobacco Use Status: Never used Tobacco Advance Directives: No Advance Directives Information Provided: No service: No Current occupational status: disabled Physical Exam Vital Signs: Vital Signs: Last Vital Signs Temp 97.2 F 06/04/21 00:00 Pulse 82 06/04/21 00:00 Resp 16 06/04/21 00:00 BP 144/72 H 06/04/21 00:00 Pulse Ox 97 06/04/21 00:00 Body Mass Index 25.2 VITAL SIGNS: Reviewed. GENERAL: Well developed, well nourished, in no acute distress. HEAD: Normocephalic/atraumatic EYES: PERRLA, EOMI with tumor of left eye a baseline EARS: Ext canals without abnormality LUNGS: Normal breath sounds. No adventitious sounds or accessory muscle use. SpO2<100> CARDIOVASCULAR: Regular rate and rhythm without noted murmurs, no JVD or lower extremity edema. ABDOMEN: Soft, non-tender, non-distended with bowel sounds. LEFT UPPER EXTREMITY: Dressing was taken down and there is noted oozing at an isolated site without evidence of trauma, Surgicel was applied and a single 4 x 4 placed over that with Kerlix wrap and patient will be observed. NEUROLOGIC: Alert and oriented x 4. Strength and sensation to light touch were grossly intact x 4. Course Course Course Narrative: 71-year-old male with history and clinical presentation consistent with minor trauma to left AV fistula with residual oozing, at this time treated conservatively with Surgicel and 4 x 4 and will re-evaluate in 2 hours. Dressing was taken down and noted to be hemostatic and patient was observed for an additional hour and there is no further bleeding. Patient is now stable for transport back to home and on review of all investigations there are no acute findings when compared to baseline. Medical Decision Making Lab Data Result diagrams: 06/03/21 23:00 06/03/21 23:00 Labs: Lab Results 06/03/21 06/03/21 06/03/21 Range/Units 22:58 23:00 23:00 WBC 4.6 L (4.8-10.8) X10*3/uL RBC 3.25 L (4.60-5.80) X10*6/uL Hgb 10.1 L (14.0-18.0) g/dl Hct 30.2 L (42-52) % MCV 92.9 (80-98) fL MCH 31.1 (27.0-33.0) pg MCHC 33.4 (31.0-36.0) g/dl RDW 15.1 (11.0-16.0) % Plt Count 226 (160-400) X10*3/uL MPV 9.6 (9.4-12.4) fL Immature Gran % (Auto) 0.2 (0.0-0.4) % Neut % (Auto) 56.9 (45-73) % Lymph % (Auto) 17.9 L (20-40) % [place] % (Auto) 14.7 H (2-11) % Eos % (Auto) 9.2 H (0-4) % Baso % (Auto) 1.1 (0-2) % Lymph # (Auto) 0.8 L (1.2-4.9) X10*3/uL [place] # (Auto) 0.7 (0.1-1.2) X10*3/uL Eos # (Auto) 0.4 (0.0-0.4) X10*3/uL Baso # (Auto) 0.1 (0.0-0.2) X10*3/uL Abs Immat Gran (auto) 0.01 (0.00-0.03) X10*3/uL Absolute Neuts (auto) 2.6 (2.0-8.3) X10*3/uL Absolute Nucleated RBC 0.000 (0.0-0.012) X10*3/uL Nucleated RBC % (auto) 0.0 (0.0-0.2) /100WBC PT (9.9-13.0) SEC INR (0.9-1.1) Sodium 141 (135-145) mmol/L Potassium 4.7 (3.3-5.1) mmol/L Chloride 97 (96-108) mmol/L Carbon Dioxide 36 H (22-29) mmol/L Anion Gap 13 (12-20) BUN 15 (9-16) mg/dL Creatinine 3.09 H (0.5-1.4) mg/dL Estim Creat Clear Calc 22.9 Estimated GFR 20 Random Glucose 178 H D (60-115) mg/dL Calcium 8.1 L (8.4-10.2) mg/dL Total Bilirubin 0.7 (0.0-1.0) mg/dL AST 18 (5-37) U/L ALT 8 (0-40) U/L Alkaline Phosphatase 190 H (39-117) U/L Total Protein 7.1 (6.5-8.0) g/dL Albumin 3.6 (3.5-5.0) g/dL Urine Color Urine Appearance Urine pH (5.0-8.0) Ur Specific [place] (1.005-1.025) Urine Protein (NEG-TRACE) MG/DL Urine Glucose (UA) (NEG) MG/DL Urine Ketones (NEG) MG/DL Urine Blood (NEG) Urine Nitrite (NEG) Ur Leukocyte Esterase (NEG) Urine RBC (0) /HPF Urine WBC (0-4) /HPF Ur Squamous Epith Cells /LPF Urine Bacteria /LPF Blood Type O Positive Antibody Screen NEGATIVE 06/03/21 06/04/21 Range/Units 23:00 00:08 WBC (4.8-10.8) X10*3/uL RBC (4.60-5.80) X10*6/uL Hgb (14.0-18.0) g/dl Hct (42-52) % MCV (80-98) fL MCH (27.0-33.0) pg MCHC (31.0-36.0) g/dl RDW (11.0-16.0) % Plt Count (160-400) X10*3/uL MPV (9.4-12.4) fL Immature Gran % (Auto) (0.0-0.4) % Neut % (Auto) (45-73) % Lymph % (Auto) (20-40) % [place] % (Auto) (2-11) % Eos % (Auto) (0-4) % Baso % (Auto) (0-2) % Lymph # (Auto) (1.2-4.9) X10*3/uL [place] # (Auto) (0.1-1.2) X10*3/uL Eos # (Auto) (0.0-0.4) X10*3/uL Baso # (Auto) (0.0-0.2) X10*3/uL Abs Immat Gran (auto) (0.00-0.03) X10*3/uL Absolute Neuts (auto) (2.0-8.3) X10*3/uL Absolute Nucleated RBC (0.0-0.012) X10*3/uL Nucleated RBC % (auto) (0.0-0.2) /100WBC PT 13.9 H (9.9-13.0) SEC INR 1.2 H (0.9-1.1) Sodium (135-145) mmol/L Potassium (3.3-5.1) mmol/L Chloride (96-108) mmol/L Carbon Dioxide (22-29) mmol/L Anion Gap (12-20) BUN (9-16) mg/dL Creatinine (0.5-1.4) mg/dL Estim Creat Clear Calc Estimated GFR Random Glucose (60-115) mg/dL Calcium (8.4-10.2) mg/dL Total Bilirubin (0.0-1.0) mg/dL AST (5-37) U/L ALT (0-40) U/L Alkaline Phosphatase (39-117) U/L Total Protein (6.5-8.0) g/dL Albumin (3.5-5.0) g/dL Urine Color OTHER Urine Appearance CLOUDY Urine pH 8.0 (5.0-8.0) Ur Specific [place] 1.020 (1.005-1.025) Urine Protein 3+ H (NEG-TRACE) MG/DL Urine Glucose (UA) 100 H (NEG) MG/DL Urine Ketones NEG (NEG) MG/DL Urine Blood 3+ H (NEG) Urine Nitrite POS H (NEG) Ur Leukocyte Esterase 3+ H (NEG) Urine RBC 5-9 H (0) /HPF Urine WBC TNTC H (0-4) /HPF Ur Squamous Epith Cells TRACE /LPF Urine Bacteria 3+ /LPF Blood Type Antibody Screen ECG Data Attestation: I personally reviewed and interpreted this ECG as follows: Prior ECG tracings: available for review (05/23/2021) Interpretation: Normal sinus rhythm, HR-76, no STEMI, MT/QRS/QTC are within normal limits. Discharge Plan Discharge Clinical Impression: ESRD on dialysis, Complication of AV dialysis fistula Patient Disposition: Home, Self-Care Instructions: Hemodialysis (DC) Additional Instructions: 1. Reanude todos los medicamentos caseros seg?n lo prescrito. 2. Arthur un seguimiento con martin proveedor de atenci?n primaria por la ma?joe para estrellita reevaluaci?n. Regrese a la conrad de emergencias por un empeoramiento orlando de los s?ntomas. Prescriptions: No Action paroxetine HCl 10 mg tablet 1 tab PO QAM RF: 0 metoprolol succinate 100 mg tablet extended release 24 hr 1 tab PO QAM RF: 0 aspirin 81 mg tablet,delayed release (DR/EC) 1 tab PO QPM RF: 0 hydralazine 100 mg tablet 1 tab PO TID RF: 0 calcium acetate(phosphat bind) 667 mg capsule 1 cap PO DAILY RF: 0 valsartan 160 mg tablet 2 tab PO QAM RF: 0 omeprazole 20 mg capsule,delayed release(DR/EC) 1 cap PO BID RF: 0 Triphrocaps 1 mg capsule 1 cap PO QAM RF: 0 oxycodone 5 mg Tablet 5 mg PO Q8H PRN (Reason: Pain) RF: 0 Referrals: Richi Sweeney MD [Primary Care Provider] - 2 days (Injury to left AV fistula with minor bleeding that was controlled and is currently hemostatic. Patient discharge, but please re-evaluate) Print Language: Mozambican
--- NOTE | 2021-06-03 22:56 | PC.NURSE ---
IN ROOM FOR EVAL OF LEFT UPPER FISTULA, BLEEDING CONTROLLED AT THIS TIME. LABS BEING DRAWN TO LAB. PT ALERT, RESPIRATIONS EASY N/L. SKIN W/D. WILL CONTINUE TO MONITOR PT.
[2021-06-03 23:03] VITALS: BP 149/73; PULSE 74; RESP 16; TEMP 36.6; O2SAT 96
[2021-06-03 23:11] LABS: Basophils Absolute Auto 0.1 X10*3/uL (0.0-0.2); Basophils Percent Auto 1.1 % (0-2); Eosinophils Absolute Auto 0.4 X10*3/uL (0.0-0.4); Eosinophils Percent Auto 9.2 % (0-4); Hematocrit 30.2 % (42-52); Hemoglobin 10.1 g/dl (14.0-18.0); Imm Gran Abs Auto 0.01 X10*3/uL (0.00-0.03); Imm Gran Pct Auto 0.2 % (0.0-0.4); Lymphocytes Absolute Auto 0.8 X10*3/uL (1.2-4.9); Lymphocytes Percent Auto 17.9 % (20-40); MANUAL DIFF FLAG NO; Mean Corpuscular HGB Conc 33.4 g/dl (31.0-36.0); Mean Corpuscular Hemoglobin 31.1 pg (27.0-33.0); Mean Corpuscular Volume 92.9 fL (80-98); Mean Platelet Volume 9.6 fL (9.4-12.4); Monocytes Absolute Auto 0.7 X10*3/uL (0.1-1.2); Monocytes Percent Auto 14.7 % (2-11); Neutrophils Absolute Auto 2.6 X10*3/uL (2.0-8.3); Neutrophils Percent Auto 56.9 % (45-73); Platelet Count 226 X10*3/uL (160-400); Red Blood Count 3.25 X10*6/uL (4.60-5.80); Red Cell Distribution Width 15.1 % (11.0-16.0); White Blood Count 4.6 X10*3/uL (4.8-10.8)
[2021-06-03 23:17] LABS: INTERNATIONAL NORM RATIO 1.2 (0.9-1.1); Prothrombin Time 13.9 SEC (9.9-13.0)
[2021-06-03 23:26] LABS: Alanine Aminotransferase 8 U/L (0-40); Albumin Level 3.6 g/dL (3.5-5.0); Alkaline Phosphatase 190 U/L (39-117); Anion Gap 13 (12-20); Aspartate Amino Transferase 18 U/L (5-37); Bilirubin Total 0.7 mg/dL (0.0-1.0); Blood Urea Nitrogen 15 mg/dL (9-16); Calcium 8.1 mg/dL (8.4-10.2); Carbon Dioxide 36 mmol/L (22-29); Chloride 97 mmol/L (96-108); Creatinine Clr Calc Pharmacy 22.9; Estimated Glomerular Filt Rate 20; Glucose Random 178 mg/dL (60-115); Potassium 4.7 mmol/L (3.3-5.1); Sodium 141 mmol/L (135-145); Total Protein 7.1 g/dL (6.5-8.0)
[2021-06-04] VITALS: BP 144/72; PULSE 82; RESP 16; TEMP 36.2; O2SAT 97
[2021-06-04 00:38] LABS: Appearance Urine CLOUDY; Color Urine OTHER; Glucose Urine UA 100 MG/DL (NEG); Nitrite Urine POS (NEG); UACC Culture Trigger YES; Urine Blood 3+ (NEG); Urine Ketones NEG (NEG); Urine Protein 3+ MG/DL (NEG-TRACE)
[2021-06-04 00:39] LABS: Leukocyte Esterase Urine 3+ (NEG)
[2021-06-04 00:46] LABS: Bacteria Urine 3+ /LPF; Squamous Epithelial Cell Urine TRACE /LPF; WBC Urine TNTC /HPF (0-4)
--- NOTE | 2021-06-04 00:58 | PC.NURSE ---
pt is straight cath as per orders. pt tolerated well.
--- NOTE | 2021-06-04 01:35 | PC.NURSE ---
spoke with lynsey mims regarding pt. pt awaiting for pending admission.
[2021-06-04 02:00] VITALS: BP 158/89; PULSE 74; RESP 16; TEMP 36.6; O2SAT 97
--- NOTE | 2021-06-04 03:15 | PC.NURSE ---
AMBULANCE HERE FOR TRANSPORT HOME. [facility] HOME AWAITING FOR PT'S RETURN, EMS AWARE. PT LEFT ED IN NAD.
== END 2021-06-04 03:42 | disposition home or self-care (01) ==
PROVIDERS: Emergency Provider Student in an Organized Health Care Education/Training Program; PCP Internal Medicine
DX: I12.0 Hypertensive chronic kidney disease with stage 5 chronic kidney disease or end stage renal disease (principal); Z99.2 Dependence on renal dialysis; Z79.899 Other long term (current) drug therapy; Z79.82 Long term (current) use of aspirin
CPT/HCPCS: 36415; 80053; 81001; 85025; 85610; 86850; 86900; 86901; 87086; 93005; 99284

== ENCOUNTER 2021-06-14 11:43 | Inpatient (IN) | payer MEDICARE, MEDICAID, SELFPAY ==
[2021-06-14] VITALS (16 sets, daily range): BP systolic 123–164; BP diastolic 63–86; PULSE 64–82; RESP 14–27; TEMP 36.3–37.1; O2SAT 91–100; BMI 25.6
--- NOTE | ~2021-06-14 | CT_ITS ---
EXAMINATION: CT HEAD WITHOUT CONTRAST CLINICAL INFORMATION: Altered mental status COMPARISON: CT head May 23, 2021 TECHNIQUE: Contiguous axial imaging was performed from the skull base to vertex without intravenous administration of contrast. Coronal and sagittal reformatted images are performed at CT scanner This CT examination was performed using dose optimization techniques as appropriate, variously including the following: *Automated exposure control *Adjustment of mA and/or kV according to patient size (this includes techniques or standardized protocols for targeted exams where dose is matched to indication/reason for exam; i.e. extremities or head) *Use of iterative reconstruction technique DLP: 802 mGy-cm FINDINGS: Status post left temporal craniotomy. There is edema and hypodensity in the white matter tracks in the left frontal parietal lobe. This surrounds the previously seen slightly hyperdense mass that extends from the left orbit into the left infratemporal fossa and extends intracranially into the left middle cranial fossa and parasellar region. Mass has not changed substantially in size since prior CAT scan May 23, 2021. Mass continues to displaces the left orbit medial and anterior . There is no acute intracranial abnormality. There is no evidence of acute intracranial hemorrhage or acute territorial infarction. Old chronic lacunar infarct in left basal ganglia. No hydrocephalus. Lewis-white differentiation is maintained. There is generalized global volume loss. There is moderate prominence of the ventricles and the sulci . There is moderate hypodensity of the periventricular white matter due to chronic small vessel ischemic disease. There are vascular calcifications of the internal carotid arteries bilaterally. Mastoid air cells and middle ear cavities are normally aerated. CT/CT head/brain wo con IMPRESSION: 1. 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 Status post left temporal craniotomy. 2. No acute intracranial abnormality, no acute bleed or infarct.
--- NOTE | ~2021-06-14 | XR_ITS ---
EXAMINATION: XR CHEST CLINICAL INFORMATION: Shortness of breath. COMPARISON: Most recent chest radiograph dated 05/23/2021 TECHNIQUE: Frontal view of the chest was obtained. FINDINGS: Diffuse, patchy bilateral airspace opacities, slightly decreased on the left when compared to the prior examination. Small right-sided pleural effusion, unchanged. No pneumothorax. Stable cardiomediastinal silhouette. XR/XR chest 1V IMPRESSION: Diffuse, patchy bilateral airspace opacities, slightly decreased on the left. Stable right-sided pleural effusion.
--- NOTE | ~2021-06-14 | XR_ITS ---
EXAMINATION: XR CHEST CLINICAL INFORMATION: Worsening shortness of breath. COMPARISON: Chest radiograph done earlier the same day. TECHNIQUE: Frontal view of the chest was obtained. FINDINGS: Patchy bilateral airspace opacities, similar when compared to the prior examination. Stable right-sided pleural effusion. Stable cardiomediastinal silhouette. No pneumothorax. Left arm vascular stent, unchanged. XR/XR chest 1V IMPRESSION: Bilateral airspace opacities and right-sided pleural effusion, unchanged.
--- NOTE | 2021-06-14 12:17 | ED.GENADULT ---
HPI - General Adult General Chief complaint: Abdominal Pain Stated complaint: abd pain Time Seen by Provider: 06/14/21 12:06 Source: EMS Mode of arrival: EMS Limitations: no limitations History of Present Illness HPI narrative: Patient comes emergency room by EMS. Patient comes complaining left lower quadrant pain. Patient usually gets dialysis Tuesdays, and Saturdays. Patient missed dialysis yesterday. Patient states he was not feeling well, nothing specific, decided not to go to dialysis. Today patient complaining of left lower quadrant pain. When asked, patient denies abdominal pain. Patient seems to be breathing heavy, denies shortness of breath, denies chest pain, no nausea or vomiting, states he just does not feel well today. Related Data Home Medications Medication Instructions Recorded Confirmed aspirin 81 mg tablet,delayed 1 tab PO QPM 12/25/20 05/23/21 release calcium acetate(phosphat bind) 667 1 cap PO DAILY 12/25/20 05/23/21 mg capsule hydralazine 100 mg tablet 1 tab PO TID 12/25/20 05/23/21 metoprolol succinate 100 mg 1 tab PO QAM 12/25/20 05/23/21 tablet,extended release 24 hr paroxetine HCl 10 mg tablet 1 tab PO QAM 12/25/20 05/23/21 valsartan 160 mg tablet 2 tab PO QAM 12/25/20 05/23/21 omeprazole 20 mg capsule,delayed 1 cap PO BID 05/23/21 05/23/21 release oxycodone 5 mg tablet 5 mg PO Q8H PRN 05/23/21 05/23/21 vitamin B complex and vitamin C 1 cap PO QAM 05/23/21 05/23/21 no.20-folic acid 1 mg capsule (Triphrocaps) isosorbide mononitrate 60 mg 1 tab PO DAILY 06/14/21 06/14/21 tablet,extended release 24 hr parenteral amino acid 20% no.1 ea IV 06/14/21 (Prosol 20 %) Allergies Allergy/AdvReac Type Severity Reaction Status Date / Time No Known Allergies Allergy Mild N/A Verified 08/10/20 02:42 Review of Systems Review of Systems: Constitutional : No Weight loss, No Fever, No Chills, No Night Sweats, complaining of fatigue and generalized malaise ENT/Mouth : No Hearing loss, No Ear Pain, No Nasal Congestion, No Sinus Pain, No Hoarseness, No sore throat, No Rhinorrhea, No Swallowing Difficulty Eyes: No Eye Pain, No Swelling, No Redness, No Foreign Body, No Discharge, No Vision Changes Cardiovascular : No Chest Pain, No SOB, No Dyspnea on Exertion, No Orthopnea, No Edema, No Palpitations Respiratory : No Cough, No Sputum, No Wheezing, No Smoke Exposure, patient keeps changing his story, states that he is short of breath, but then when asked again states that he has no short of breath Gastrointestinal : No Nausea, No Vomiting, No Diarrhea, No Constipation, No abdominal Pain, No Hematochezia, No Melena Genitourinary : no irregular bleeding, No Dysuria, No Urinary Frequency, No Hematuria, No Urinary Incontinence, No Urgency, No Flank Pain, No Urinary Flow Changes, No Hesitancy Musculoskeletal : No joint pain, No Myalgias, No Joint Swelling Skin : No Skin Lesions, No rash Neuro : No Weakness, No Numbness, No Paresthesias, No Loss of Consciousness, No Dizziness, No Headache Psych : No Anxiety/Panic, No Depression, No SI/HI/AH/VH, No Social Issues, Heme/Lymph: No Bruising, No Bleeding,No Lymphadenopathy Endocrine : No Polyuria, No Polydipsia, No Temperature Intolerance PMFSH Past Medical History Medical History Acute CVA (cerebrovascular accident) Atypical chest pain AV fistula CAD (coronary artery disease) Carpal tunnel syndrome CKD (chronic kidney disease) Diabetes Dialysis patient ESRD (end stage renal disease) GERD (gastroesophageal reflux disease) Hepatitis C History of stroke HLD (hyperlipidemia) HTN (hypertension) Non-ischemic cardiomyopathy HUGH (obstructive sleep apnea) Osteoarthritis Peripheral vascular disease Pneumonia Surgical History H/O colectomy History of hip surgery History of hip surgery Social History Social History Household Members: Family Housing: Apartment Do you presently have visiting nurse or other home services: No Alcohol intake: never Patient Tobacco Use Status: Never used Tobacco Advance Directives: No Advance Directives Information Provided: Yes service: No Current occupational status: disabled Physical Exam Vital Signs: Vital Signs: Last Vital Signs Temp 98.4 F 06/14/21 11:55 Pulse 71 06/14/21 11:55 Resp 24 H 06/14/21 11:55 BP 151/73 H 06/14/21 11:55 Pulse Ox 95 06/14/21 11:55 Body Mass Index 25.6 Const: Other: Appearance: Alert. Oriented X3. No acute distress. Eyes: Right Pupil equal, round and reactive to light. Unable to assess left pupil, chronic eye swelling, patient states it is baseline for months ENT: Pharynx normal. Neck: Normal inspection. Neck supple. No lymph nodes noted. No crepitus CVS: Normal heart rate and rhythm. Pulses normal. Normal S1 and S2 Respiratory: Patient seems to be breathing on the heavier side, patient has mild bilateral crackles, no wheezing, good air movement Abdomen: Soft and nontender. Mildly distended, no rigidity, no guarding Skin: Skin warm and dry. Normal skin color. Normal skin turgor. Extremities: No lower extremity edema. No Lacerations. No Rash, palpable thrill over fistula in left arm Neuro: Cranial nerves 2-12 grossly intact No motor deficit. No sensory deficit. Moving all extermities. No slurred speech. Course Course Course Narrative: Patient's oxygen saturation remains at 95%, however he started to breathe heavy. Patient was started on CPAP. Blood pressure 170 systolic, patient was also given 1 dose of 40 mg Lasix and 1 in of nitroglycerin ointment. Nephrology has been paged, return call pending. I discussed the patient with Dr. Perez, patient will be dialyzed today. Patient will be admitted to intensive care unit. Patient is a DNR DNI, at this time, I spoke with the patient's GRADALL OPERATOR/healthcare proxy. If needed, we have permission to intubate the patient. At this time, patient will be kept on BiPAP, patient wakes up to his name. Dr. Braxton is at bedside, patient oxygenating 98-100%. At this time, we will try to hold off intubation. Patient being admitted to the intensive care unit Medical Decision Making Lab Data Result diagrams: 06/14/21 12:27 06/14/21 12:27 Labs: Lab Results 06/14/21 06/14/21 06/14/21 Range/Units 12:27 12:27 12:27 WBC 4.3 L (4.8-10.8) X10*3/uL RBC 2.85 L (4.60-5.80) X10*6/uL Hgb 8.8 L (14.0-18.0) g/dl Hct 26.0 L (42-52) % MCV 91.2 (80-98) fL MCH 30.9 (27.0-33.0) pg MCHC 33.8 (31.0-36.0) g/dl RDW 13.8 (11.0-16.0) % Plt Count 149 L D (160-400) X10*3/uL MPV 10.6 (9.4-12.4) fL Immature Gran % (Auto) 0.2 (0.0-0.4) % Neut % (Auto) 63.3 (45-73) % Lymph % (Auto) 19.5 L (20-40) % [place] % (Auto) 12.1 H (2-11) % Eos % (Auto) 4.2 H (0-4) % Baso % (Auto) 0.7 (0-2) % Lymph # (Auto) 0.8 L (1.2-4.9) X10*3/uL [place] # (Auto) 0.5 (0.1-1.2) X10*3/uL Eos # (Auto) 0.2 (0.0-0.4) X10*3/uL Baso # (Auto) 0.0 (0.0-0.2) X10*3/uL Abs Immat Gran (auto) 0.01 (0.00-0.03) X10*3/uL Absolute Neuts (auto) 2.7 (2.0-8.3) X10*3/uL Absolute Nucleated RBC 0.000 (0.0-0.012) X10*3/uL Nucleated RBC % (auto) 0.0 (0.0-0.2) /100WBC PT 13.2 H (9.9-13.0) SEC INR 1.2 H (0.9-1.1) Sodium 126 L (135-145) mmol/L Potassium 5.9 H D (3.3-5.1) mmol/L Chloride 89 L (96-108) mmol/L Carbon Dioxide 25 (22-29) mmol/L Anion Gap 18 (12-20) BUN 52 H D (9-16) mg/dL Creatinine 7.07 H* (0.5-1.4) mg/dL Estim Creat Clear Calc 10.0 Estimated GFR 8 Random Glucose 124 H (60-115) mg/dL Calcium 8.0 L (8.4-10.2) mg/dL Total Bilirubin 0.8 (0.0-1.0) mg/dL Direct Bilirubin (0.0-0.5) mg/dL AST 28 D (5-37) U/L ALT 8 (0-40) U/L Alkaline Phosphatase 215 H (39-117) U/L Troponin I High Sens (<3.5-35.0) ng/L Total Protein 7.4 (6.5-8.0) g/dL Albumin 3.5 (3.5-5.0) g/dL COVID-19 ([facility]ATLIN) (Negative) COVID-19 Clin Com 06/14/21 06/14/21 06/14/21 Range/Units 12:27 12:27 12:31 WBC (4.8-10.8) X10*3/uL RBC (4.60-5.80) X10*6/uL Hgb (14.0-18.0) g/dl Hct (42-52) % MCV (80-98) fL MCH (27.0-33.0) pg MCHC (31.0-36.0) g/dl RDW (11.0-16.0) % Plt Count (160-400) X10*3/uL MPV (9.4-12.4) fL Immature Gran % (Auto) (0.0-0.4) % Neut % (Auto) (45-73) % Lymph % (Auto) (20-40) % [place] % (Auto) (2-11) % Eos % (Auto) (0-4) % Baso % (Auto) (0-2) % Lymph # (Auto) (1.2-4.9) X10*3/uL [place] # (Auto) (0.1-1.2) X10*3/uL Eos # (Auto) (0.0-0.4) X10*3/uL Baso # (Auto) (0.0-0.2) X10*3/uL Abs Immat Gran (auto) (0.00-0.03) X10*3/uL Absolute Neuts (auto) (2.0-8.3) X10*3/uL Absolute Nucleated RBC (0.0-0.012) X10*3/uL Nucleated RBC % (auto) (0.0-0.2) /100WBC PT (9.9-13.0) SEC INR (0.9-1.1) Sodium (135-145) mmol/L Potassium (3.3-5.1) mmol/L Chloride (96-108) mmol/L Carbon Dioxide (22-29) mmol/L Anion Gap (12-20) BUN (9-16) mg/dL Creatinine (0.5-1.4) mg/dL Estim Creat Clear Calc Estimated GFR Random Glucose (60-115) mg/dL Calcium (8.4-10.2) mg/dL Total Bilirubin 0.8 (0.0-1.0) mg/dL Direct Bilirubin 0.2 (0.0-0.5) mg/dL AST 28 (5-37) U/L ALT 8 (0-40) U/L Alkaline Phosphatase 215 H (39-117) U/L Troponin I High Sens 28.4 D (<3.5-35.0) ng/L Total Protein 7.3 (6.5-8.0) g/dL Albumin 3.5 (3.5-5.0) g/dL COVID-19 (KATLIN) Negative (Negative) COVID-19 Clin Com See Note Critical Care Time Critical Care Time Critical Care Time: Yes Total Critical Care Time: 60 Attestation: 60 minutes were spent in direct patient care, stabilization, and consults Discharge Plan Discharge Clinical Impression: ESRD on dialysis, Pulmonary edema, Acute hyperkalemia Patient Disposition: Admitted As Inpatient Prescriptions: No Action paroxetine HCl 10 mg tablet 1 tab PO QAM RF: 0 metoprolol succinate 100 mg tablet extended release 24 hr 1 tab PO QAM RF: 0 aspirin 81 mg tablet,delayed release (DR/EC) 1 tab PO QPM RF: 0 hydralazine 100 mg tablet 1 tab PO TID RF: 0 calcium acetate(phosphat bind) 667 mg capsule 1 cap PO DAILY RF: 0 valsartan 160 mg tablet 2 tab PO QAM RF: 0 isosorbide mononitrate 60 mg tablet extended release 24 hr 1 tab PO DAILY RF: 0 Prosol 20 % Parenteral Solution IV RF: 0 omeprazole 20 mg capsule,delayed release(DR/EC) 1 cap PO BID RF: 0 Triphrocaps 1 mg capsule 1 cap PO QAM RF: 0 oxycodone 5 mg Tablet 5 mg PO Q8H PRN (Reason: Pain) RF: 0
[2021-06-14 12:32] LABS: MANUAL DIFF FLAG NO
[2021-06-14 12:36] LABS: Basophils Percent Auto 0.7 % (0-2); Eosinophils Absolute Auto 0.2 X10*3/uL (0.0-0.4); Eosinophils Percent Auto 4.2 % (0-4); Hemoglobin 8.8 g/dl (14.0-18.0); Imm Gran Abs Auto 0.01 X10*3/uL (0.00-0.03); Imm Gran Pct Auto 0.2 % (0.0-0.4); Lymphocytes Absolute Auto 0.8 X10*3/uL (1.2-4.9); Lymphocytes Percent Auto 19.5 % (20-40); Mean Corpuscular HGB Conc 33.8 g/dl (31.0-36.0); Mean Corpuscular Hemoglobin 30.9 pg (27.0-33.0); Mean Corpuscular Volume 91.2 fL (80-98); Mean Platelet Volume 10.6 fL (9.4-12.4); Monocytes Absolute Auto 0.5 X10*3/uL (0.1-1.2); Monocytes Percent Auto 12.1 % (2-11); Neutrophils Absolute Auto 2.7 X10*3/uL (2.0-8.3); Neutrophils Percent Auto 63.3 % (45-73); Platelet Count 149 X10*3/uL (160-400); Red Blood Count 2.85 X10*6/uL (4.60-5.80); Red Cell Distribution Width 13.8 % (11.0-16.0); White Blood Count 4.3 X10*3/uL (4.8-10.8)
[2021-06-14 12:38] LABS: INTERNATIONAL NORM RATIO 1.2 (0.9-1.1); Prothrombin Time 13.2 SEC (9.9-13.0)
[2021-06-14 12:52] LABS: Alanine Aminotransferase 8 U/L (0-40); Albumin Level 3.5 g/dL (3.5-5.0); Alkaline Phosphatase 215 U/L (39-117); Aspartate Amino Transferase 28 U/L (5-37); Bilirubin Direct 0.2 mg/dL (0.0-0.5); Bilirubin Total 0.8 mg/dL (0.0-1.0); Total Protein 7.3 g/dL (6.5-8.0)
[2021-06-14 12:54] LABS: Troponin-I High Sensitivity 28.4 ng/L (<3.5-35.0)
[2021-06-14 12:55] LABS: Alanine Aminotransferase 8 U/L (0-40); Albumin Level 3.5 g/dL (3.5-5.0); Alkaline Phosphatase 215 U/L (39-117); Anion Gap 18 (12-20); Aspartate Amino Transferase 28 U/L (5-37); Bilirubin Total 0.8 mg/dL (0.0-1.0); Blood Urea Nitrogen 52 mg/dL (9-16); Carbon Dioxide 25 mmol/L (22-29); Chloride 89 mmol/L (96-108); Estimated Glomerular Filt Rate 8; Glucose Random 124 mg/dL (60-115); Potassium 5.9 mmol/L (3.3-5.1); Sodium 126 mmol/L (135-145); Total Protein 7.4 g/dL (6.5-8.0)
[2021-06-14 12:58] LABS: COVID-19 Test Negative (Negative)
[2021-06-14] MEDS: Insulin Regular, Human 100 UNIT/ML 3 ML VIAL 10 UNIT IVPUSH (13:39)
[2021-06-14] MEDS: Calcium Gluconate/NaCl,Iso-Osm 2 GM/100 ML PLAST..BAG IV (13:45)
--- NOTE | 2021-06-14 14:01 | ECG_ITS ---
Test Reason : SOB Blood Pressure : / mmHG Vent. Rate : 077 BPM Atrial Rate : 077 BPM P-R Int : 162 ms QRS Dur : 084 ms QT Int : 394 ms P-R-T Axes : 037 -20 061 degrees QTc Int : 445 ms Normal sinus rhythm Inferior infarct , age undetermined Intra-ventricular conduction delay Nonspecific ST abnormality Lateral leads Abnormal ECG No significant changes seen Referred By: Suzi Shi Electronically Signed By:DANTE PETIT MD
[2021-06-14] MEDS: Furosemide 40 MG/4 ML VIAL IVPUSH (14:17)
--- NOTE | 2021-06-14 14:42 | PHA.MEDREC ---
Pharmacy Consult ? Medication Reconciliation Pharmacy has completed the medication reconciliation. Last med rec complete 05/23 when patient had AMS. I contacted [facility] for his medication record last time. Patient is intubated now, all medications in claim history are the same as last time he with recent fills. Mariposa Davis, PharmD
[2021-06-14 15:04] LABS: ABG Refer to POC result
[2021-06-14 15:05] LABS: ABG HCO3 25 mmol/L (22-26); ABG pCO2 37 mmHg (32-45); ABG pCO2 TC 37 mmHg (32-45); ABG pH 7.44 (7.35-7.45); ABG pH TC 7.44 (7.35-7.45); ABG pO2 85 mmHg (83-108); ABG pO2 TC 84 (83-108)
[2021-06-14 15:25] LABS: Glucose, Whole Blood 178 mg/dL (60-115)
[2021-06-14 16:43] LABS: VBG Base Excess 3.3 mmol/L; VBG HCO3 27 mmol/L (22-26); VBG pCO2 41 mmHg; VBG pH 7.43 (7.32-7.43); VBG pO2 119 mmHg
[2021-06-14 16:44] LABS: Venous Blood Gas Refer to POC result
--- NOTE | 2021-06-14 16:45 | W.PM.DNNEP ---
Subjective Subjective Principal diagnosis: ESRD This patient was seen during dialysis. Physical Exam Vital Signs: Vital Signs: Last Vital Signs Temp 98.4 F 06/14/21 11:55 Pulse 73 06/14/21 16:00 Resp 14 06/14/21 16:29 BP 159/84 H 06/14/21 16:00 Pulse Ox 96 06/14/21 16:00 Body Mass Index 25.6 Assessment & Plan Assessment and plan (1) Acute hyperkalemia: Status: Acute (2) ESRD on dialysis: Status: Acute Assessment and Plan: Seen during HD Fluid overload with hyperkalemia Remove fluid as tolerated with HD Use low K bath to correct hyperkalemia Will dialyze again tomorrow to get him back on schedule and optimize fluid status Time Spent With Patient Time: Total time spent is greater than 50% in coordination of care (as documented) at patient's floor/unit and/or counseling patient: Time with patient: 15 - 24 minutes Procedures Date of Service Date of Service: 06/14/21
--- NOTE | 2021-06-14 16:56 | P.HPCC_ITS ---
History of Present Illness Date of Service: 06/14/21 Attending physician on admission: Kali Braxton Mr. Delgado is being admitted to ICU with acute pulmon edema, respiratory difficulty, and altered mental status. The patient is a 71-year-old male with past medical history of end-stage renal disease, on dialysis through a fistula Tuesdays, , and Saturdays.? The patient's past medical history is also most notable for an inoperable brain tumor (see more below) that he has had for some time.? According to the dialysis nurse who knows him, he often gets confused and misses dialysis. The past medical history is also notable for: Diabetes Acute CVA (cerebrovascular accident) Atypical chest pain CAD (coronary artery disease) GERD (gastroesophageal reflux disease) Hepatitis C HLD (hyperlipidemia) HTN (hypertension) Non-ischemic cardiomyopathy HUGH (obstructive sleep apnea) Peripheral vascular disease Pneumonia The patient has DNR/DNI status. The ambulance was called today reportedly bec of left lower quadrant pain.? When he arrived in the ED, he denied abdominal pain.? He denied shortness of breath, chest pain, nausea, or vomiting.? He stated he just did not feel well.? The patient missed dialysis yesterday, told the ED staff that he was not feeling well, nothing specific, decided not to go to dialysis. On arrival to the ED today just before noon, the heart rate was 71, blood pressure 151/73, respiratory rate 24, sat 95% on room air.? Temperature was 98.4 degrees.? He was initially alert and oriented.? He had increased work of breathing with bilateral crackles, no wheezing, and good air movement.? The abdomen was benign.? He had no edema.? He had no slurred speech. The patient's blood pressure nadya to 170 systolic and he started to breathe heavy.? He was put on CPAP.? He was given Lasix and nitropaste.? His mental status became altered.? I went to see him in the ED. On my exam,, it took vigorous stimulation to get him to respond.? HR was 70, SR with PVCs.? BP 132/80.? On BiPAP 12/01/%, RR was 18-20, Vt 500+cc, Ve 10-11L, Sat 96%.? Right pupil about 2-3 mm.? Left eye closed and bulging out, c/w a retroorbital mass.? Marked JVD at 45?.? Chest shows moderate crackles at least 2/3 up bilat.? No wheeze, normal exp phase.? Soft heart tones.? Abd benign, no edema. LABORATORY DATA:? As below.? Notably, White count is 4.3 (usually runs in the 4- 5 range).? Hemoglobin is 8.8 (usually runs about 10). ?Platelet count is 149 (usually runs about 200).? Sodium is 126 (was 141 ten days ago; has been down in the 120s before).? Potassium is 5.9, BUN/creatinine are 52/7.0, glucose is 124, LFTs are okay. ABG on the above BiPAP settings showed 7.44/37/85/+2. Chest x-ray shows a rotated film, very difficult to read.? Definitely has a right pleural effusion.? May have some vascular prominence noted on the left.? On the right may have some patchy infiltrates.? Regardless, I am guessing that the film is unchanged from his previous film on May 23 and probably from the film of May [address] (my reading);? 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 Await the formal radiology reading. Review of previous brain CT and MRI scans with Dr. Smith from radiology shows the tumor dating back to at least a 01/07/2013 MRI scan, but was not seen on a CT scan of 01/06/2013. IMPRESSION: 1. ESRF, missed dialysis. 2. CHF w pulmon edema.? Needs dialysis. 3. Brain tumor.? Inoperable according to the dialysis nurse. 4. Altered mental status.? No clear etiology.? The dialysis nurse, who has known him for years, says that he is generally slow and his mental status currently is at baseline. The patient was admitted to ICU and went on dialysis.? Breathing easy with Sat 92-95% on unsupported room air.? HR 77, BP 159/84.? Anticipate transfer to [facility] after dialysis. Time (including extended chart rev):? 90 min. [facility] Past Medical History Medical History Acute CVA (cerebrovascular accident) Atypical chest pain AV fistula CAD (coronary artery disease) Carpal tunnel syndrome CKD (chronic kidney disease) Diabetes Dialysis patient ESRD (end stage renal disease) GERD (gastroesophageal reflux disease) Hepatitis C History of stroke HLD (hyperlipidemia) HTN (hypertension) Non-ischemic cardiomyopathy HUGH (obstructive sleep apnea) Osteoarthritis Peripheral vascular disease Pneumonia Surgical History Surgical History H/O colectomy History of hip surgery History of hip surgery Social History Social History Household Members: None Housing: Apartment Do you presently have visiting nurse or other home services: Yes (PCP) Alcohol intake: never Patient Tobacco Use Status: Never used Tobacco Use of substances other than those prescribed or required for medical reasons: No Advance Directives: No Advance Directives Information Provided: Yes Recently lost weight without trying: Unsure Nutrition Risks: No Nutritional Risk Poor oral hygiene: No service: No Current occupational status: [employer] Allergies Allergy/AdvReac Type Severity Reaction Status Date / Time No Known Allergies Allergy Mild N/A Verified 08/10/20 02:42 Active Medications: Current Medications Pharmacy Consult (Consult Rx Perform Med Rec) 1 each MISCELLANE ONCE PRN PRN Reason: Consult order Home Medications Medication Instructions Recorded Confirmed Last Taken Type aspirin 81 mg tablet,delayed 1 tab PO QPM 12/25/20 06/14/21 Unknown History release calcium acetate(phosphat bind) 667 1 cap PO DAILY 12/25/20 06/14/21 Unknown History mg capsule hydralazine 100 mg tablet 1 tab PO TID 12/25/20 06/14/21 Unknown History metoprolol succinate 100 mg 1 tab PO QAM 12/25/20 06/14/21 Unknown History tablet,extended release 24 hr paroxetine HCl 10 mg tablet 1 tab PO QAM 12/25/20 06/14/21 Unknown History valsartan 160 mg tablet 2 tab PO QAM 12/25/20 06/14/21 Unknown History omeprazole 20 mg capsule,delayed 1 cap PO BID 05/23/21 06/14/21 Unknown History release oxycodone 5 mg tablet 5 mg PO Q8H PRN 05/23/21 06/14/21 Unknown History vitamin B complex and vitamin C 1 cap PO QAM 05/23/21 06/14/21 Unknown History no.20-folic acid 1 mg capsule (Triphrocaps) isosorbide mononitrate 60 mg 1 tab PO DAILY 06/14/21 06/14/21 Unknown History tablet,extended release 24 hr parenteral amino acid 20% no.1 ea IV 06/14/21 Unknown History (Prosol 20 %) Physical Exam Vital Signs: Vital Signs: Last Vital Signs Temp 98.4 F 06/14/21 11:55 Pulse 73 06/14/21 16:00 Resp 14 06/14/21 16:29 BP 159/84 H 06/14/21 16:00 Pulse Ox 96 06/14/21 16:00 Body Mass Index 25.6 Results Labs CBC and Chem 7: 06/14/21 12:27 06/14/21 12:27 Labs: Laboratory Results - last 24 hr 06/14/21 06/14/21 06/14/21 12:27 12:27 12:27 MCV 91.2 MCH 30.9 MCHC 33.8 RDW 13.8 Plt Count 149 L D MPV 10.6 Immature Gran % (Auto) 0.2 Neut % (Auto) 63.3 Lymph % (Auto) 19.5 L [place] % (Auto) 12.1 H Eos % (Auto) 4.2 H Baso % (Auto) 0.7 Lymph # (Auto) 0.8 L [place] # (Auto) 0.5 Eos # (Auto) 0.2 Baso # (Auto) 0.0 Abs Immat Gran (auto) 0.01 Absolute Neuts (auto) 2.7 Absolute Nucleated RBC 0.000 Nucleated RBC % (auto) 0.0 PT 13.2 H INR 1.2 H O2 Saturation ABG pH at Pt Temp ABG pH (Temp Correct) ABG pCO2 at Pt Temp ABG pCO2 (Temp Corrct ABG pO2 at Pt Temp ABG pO2 (Temp Correct ABG HCO3 ABG Base Excess (Actual) VBG pH VBG pCO2 VBG pO2 VBG HCO3 VBG O2 Saturation VBG Base Excess Anion Gap 18 Estim Creat Clear Calc 10.0 Estimated GFR 8 POC Glucose Random Glucose 124 H Calcium 8.0 L Total Bilirubin 0.8 Direct Bilirubin AST 28 D ALT 8 Alkaline Phosphatase 215 H Troponin I High Sens Total Protein 7.4 Albumin 3.5 COVID-19 (KATLIN) COVID-19 Clin Com 06/14/21 06/14/21 06/14/21 12:27 12:27 12:31 MCV MCH MCHC RDW Plt Count MPV Immature Gran % (Auto) Neut % (Auto) Lymph % (Auto) [place] % (Auto) Eos % (Auto) Baso % (Auto) Lymph # (Auto) [place] # (Auto) Eos # (Auto) Baso # (Auto) Abs Immat Gran (auto) Absolute Neuts (auto) Absolute Nucleated RBC Nucleated RBC % (auto) PT INR O2 Saturation ABG pH at Pt Temp ABG pH (Temp Correct) ABG pCO2 at Pt Temp ABG pCO2 (Temp Corrct ABG pO2 at Pt Temp ABG pO2 (Temp Correct ABG HCO3 ABG Base Excess (Actual) VBG pH VBG pCO2 VBG pO2 VBG HCO3 VBG O2 Saturation VBG Base Excess Anion Gap Estim Creat Clear Calc Estimated GFR POC Glucose Random Glucose Calcium Total Bilirubin 0.8 Direct Bilirubin 0.2 AST 28 ALT 8 Alkaline Phosphatase 215 H Troponin I High Sens 28.4 D Total Protein 7.3 Albumin 3.5 COVID-19 (KATLIN) Negative COVID-19 Clin Com See Note 06/14/21 06/14/21 06/14/21 14:13 14:59 16:37 MCV MCH MCHC RDW Plt Count MPV Immature Gran % (Auto) Neut % (Auto) Lymph % (Auto) [place] % (Auto) Eos % (Auto) Baso % (Auto) Lymph # (Auto) [place] # (Auto) Eos # (Auto) Baso # (Auto) Abs Immat Gran (auto) Absolute Neuts (auto) Absolute Nucleated RBC Nucleated RBC % (auto) PT INR O2 Saturation 96.0 ABG pH at Pt Temp 7.44 ABG pH (Temp Correct) 7.44 ABG pCO2 at Pt Temp 37 ABG pCO2 (Temp Corrct 37 ABG pO2 at Pt Temp 85 ABG pO2 (Temp Correct 84 ABG HCO3 25 ABG Base Excess (Actual) 2.0 VBG pH 7.43 VBG pCO2 41 VBG pO2 119 VBG HCO3 27 H VBG O2 Saturation 98.0 VBG Base Excess 3.3 Anion Gap Estim Creat Clear Calc Estimated GFR POC Glucose 178 H Random Glucose Calcium Total Bilirubin Direct Bilirubin AST ALT Alkaline Phosphatase Troponin I High Sens Total Protein Albumin COVID-19 (KATLIN) COVID-19 Clin Com Imaging Radiologist's Impressions: Impressions Chest X-Ray 06/14/21 12:13 IMPRESSION: Diffuse, patchy bilateral airspace opacities, slightly decreased on the left. Stable right-sided pleural effusion. Chest X-Ray 06/14/21 14:25 IMPRESSION: Bilateral airspace opacities and right-sided pleural effusion, unchanged.
--- NOTE | 2021-06-14 19:09 | PC.NURSE ---
pt to floor from ED, originally on bipap, tranitioned to RA. Pt satting 90-94%. Pt responds to voice, but drifts back to sleep. Pt recieving dialysis, bp remains stable. Occasional cough. Pt primarily gibraltarian speaking, dialysis nurse knows pt from dialysis, states this is how he is. Pt has swollen r eye, baseline.
[2021-06-15] VITALS (7 sets, daily range): BP systolic 116–140; BP diastolic 48–69; PULSE 61–82; RESP 18–20; TEMP 36.1–36.7; O2SAT 93–98; BMI 25.1
--- NOTE | 2021-06-15 03:50 | CONS_ITS ---
DATE OF SERVICE: REASON FOR CONSULTATION: I was called to see this patient to assist in the management of ESRD HISTORY OF PRESENT ILLNESS: To summarize, Demario is well known to us. He is a 71-year-old man with a history of ESRD on maintenance hemodialysis. He was recently discharged from the hospital. He missed his dialysis treatment yesterday. He comes to the hospital with shortness of breath and was found to have fluid overload with hyperkalemia. Therefore, he was taken to ICU for emergent dialysis.. PAST MEDICAL HISTORY: His ongoing medical problems include history of coronary artery disease. ESRD on dialysis on Tuesdays, , and Saturdays; hypertension; obstructive sleep apnea; peripheral vascular disease, diabetes mellitus, coronary artery disease, history of CVA. SURGICAL HISTORY: Include colectomy and hip surgery, AV fistula creation. SOCIAL HISTORY: There is no history of any smoking or alcohol abuse. REVIEW OF SYSTEMS: Not obtainable from the patient due to his mentation. MEDICATIONS: All the home medications were reviewed. He is on aspirin, calcium acetate with food as a binder, hydralazine, metoprolol, valsartan 160 mg, omeprazole, oxycodone, vitamin B, vitamin C, isosorbide. ALLERGIES: NO KNOWN DRUG ALLERGIES HAVE BEEN DOCUMENTED. PHYSICAL EXAMINATION: GENERAL: Demario is a 71-year-old man. He is lethargic on BiPAP. Arousable. NECK: Supple. JVD is present. LUNGS: Bilateral crackles. HEART: S1, S2 heard. No gallop. ABDOMEN: Obese, soft, nontender. EXTREMITIES: edema. NEURO: No involuntary movements. No myoclonus. He responds to verbal stimuli. VITAL SIGNS: Blood pressure today was 159/80 with a pulse of 90 per minute. He is afebrile. LABORATORY AND DIAGNOSTIC DATA: WBC 4.3, hemoglobin 8.8, platelets 149. Sodium 126, potassium 5.9, BUN 52, creatinine 7.07. Chest x-ray showed bilateral airspace disease with pleural effusion. IMPRESSIONS: A 71-year-old man with end-stage renal disease, presented with fluid overload and hyperkalemia. We will proceed with emergent dialysis to correct the hyperkalemia and optimize his fluid status. We will keep him on a low potassium bath and remove fluid as tolerated based on his blood pressure. He has anemia. We will start him back on Epogen as per protocol. Mild hyponatremia. Reassess serum sodium after dialysis. We will restrict his oral free water intake. Further management will be based on the clinical course. We will be happy to follow along with the team. Tera Jack MD BPA/MODL / [id number] MTDD
--- NOTE | 2021-06-15 08:10 | P.PNIM_ITS ---
Subjective Subjective Date of Service: 06/15/21 Interval History: Denies breathing problems. Had HD yesterday and going again today. Review of Systems Review of Systems: Yes all other systems are reviewed and are negative Physical Exam Vital Signs: Vital Signs: Last Vital Signs Temp 98.0 F 06/15/21 07:31 Pulse 77 06/15/21 07:31 Resp 18 06/15/21 07:31 BP 132/64 06/15/21 07:31 Pulse Ox 93 06/15/21 07:31 Body Mass Index 25.1 Gen: chronically ill-appearing, no respiratory distress HEENT: marked L proptosis, sclera anicteric, moist mucus membranes Neck: supple Lungs: diminished bilaterally, more on R Heart: regular rate and rhythm, no murmurs Abd: soft, non-tender, non-distended Ext: no edema Skin: warm/well-perfused Neuro: alert and oriented x3, no focal findings Psych: appropriate affect Objective Data Active Medications Aspirin (Aspirin Enteric Coated 81 Mg Tablet.) 81 mg PO QPM [facility] Calcium Acetate (Calcium Acetate 667 Mg Capsule) 667 mg PO DAILY [facility] Hydralazine HCl (Hydralazine Hcl 50 Mg Tablet) 100 mg PO TID [facility]; Protocol Isosorbide Mononitrate (Isosorbide Mononitrate 60 Mg Tab.Er.24h) 60 mg PO DAILY [facility]; Protocol Metoprolol Succinate (Metoprolol Succinate Er 100 Mg Tab.Er.24h) 100 mg PO QAM [facility]; Protocol Multivitamins/Vitamin C (Multivitamin Tablet) 1 tab PO QAM [facility] Omeprazole (Omeprazole 20 Mg Capsule.) 20 mg PO BID [facility] Oxycodone HCl (Oxycodone Hcl Immed Release 5 Mg Tablet) 5 mg PO Q8H PRN PRN Reason: Pain Paroxetine HCl (Paroxetine Hcl 10 Mg Tablet) [facility] [place] [facility] (Consult Rx Perform Med Rec) 1 each MISCELLANE ONCE PRN PRN Reason: Consult order Valsartan (Valsartan 320 Mg Tablet) 320 mg PO QAM [facility]; Protocol Labs CBC & Chem 7: 06/15/21 08:23 06/15/21 08:23 Labs: Laboratory Results - last 24 hr 06/14/21 06/14/21 06/14/21 12:27 12:27 12:27 MCV 91.2 MCH 30.9 MCHC 33.8 RDW 13.8 Plt Count 149 L D MPV 10.6 Immature Gran % (Auto) 0.2 Neut % (Auto) 63.3 Lymph % (Auto) 19.5 L [place] % (Auto) 12.1 H Eos % (Auto) 4.2 H Baso % (Auto) 0.7 Lymph # (Auto) 0.8 L [place] # (Auto) 0.5 Eos # (Auto) 0.2 Baso # (Auto) 0.0 Abs Immat Gran (auto) 0.01 Absolute Neuts (auto) 2.7 Absolute Nucleated RBC 0.000 Nucleated RBC % (auto) 0.0 PT 13.2 H INR 1.2 H O2 Saturation ABG pH at Pt Temp ABG pH (Temp Correct) ABG pCO2 at Pt Temp ABG pCO2 (Temp Corrct ABG pO2 at Pt Temp ABG pO2 (Temp Correct ABG HCO3 ABG Base Excess (Actual) VBG pH VBG pCO2 VBG pO2 VBG HCO3 VBG O2 Saturation VBG Base Excess Anion Gap 18 Estim Creat Clear Calc 10.0 Estimated GFR 8 POC Glucose Random Glucose 124 H Calcium 8.0 L Total Bilirubin 0.8 Direct Bilirubin AST 28 D ALT 8 Alkaline Phosphatase 215 H Troponin I High Sens Total Protein 7.4 Albumin 3.5 COVID-19 (KATLIN) COVID-19 Clin Com 06/14/21 06/14/21 06/14/21 12:27 12:27 12:31 MCV MCH MCHC RDW Plt Count MPV Immature Gran % (Auto) Neut % (Auto) Lymph % (Auto) [place] % (Auto) Eos % (Auto) Baso % (Auto) Lymph # (Auto) [place] # (Auto) Eos # (Auto) Baso # (Auto) Abs Immat Gran (auto) Absolute Neuts (auto) Absolute Nucleated RBC Nucleated RBC % (auto) PT INR O2 Saturation ABG pH at Pt Temp ABG pH (Temp Correct) ABG pCO2 at Pt Temp ABG pCO2 (Temp Corrct ABG pO2 at Pt Temp ABG pO2 (Temp Correct ABG HCO3 ABG Base Excess (Actual) VBG pH VBG pCO2 VBG pO2 VBG HCO3 VBG O2 Saturation VBG Base Excess Anion Gap Estim Creat Clear Calc Estimated GFR POC Glucose Random Glucose Calcium Total Bilirubin 0.8 Direct Bilirubin 0.2 AST 28 ALT 8 Alkaline Phosphatase 215 H Troponin I High Sens 28.4 D Total Protein 7.3 Albumin 3.5 COVID-19 (KATLIN) Negative COVID-19 Clin Com See Note 06/14/21 06/14/21 06/14/21 14:13 14:59 16:37 MCV MCH MCHC RDW Plt Count MPV Immature Gran % (Auto) Neut % (Auto) Lymph % (Auto) [place] % (Auto) Eos % (Auto) Baso % (Auto) Lymph # (Auto) [place] # (Auto) Eos # (Auto) Baso # (Auto) Abs Immat Gran (auto) Absolute Neuts (auto) Absolute Nucleated RBC Nucleated RBC % (auto) PT INR O2 Saturation 96.0 ABG pH at Pt Temp 7.44 ABG pH (Temp Correct) 7.44 ABG pCO2 at Pt Temp 37 ABG pCO2 (Temp Corrct 37 ABG pO2 at Pt Temp 85 ABG pO2 (Temp Correct 84 ABG HCO3 25 ABG Base Excess (Actual) 2.0 VBG pH 7.43 VBG pCO2 41 VBG pO2 119 VBG HCO3 27 H VBG O2 Saturation 98.0 VBG Base Excess 3.3 Anion Gap Estim Creat Clear Calc Estimated GFR POC Glucose 178 H Random Glucose Calcium Total Bilirubin Direct Bilirubin AST ALT Alkaline Phosphatase Troponin I High Sens Total Protein Albumin COVID-19 (KATLIN) COVID-19 Clin Com Assessment and Plan (1) Volume overload: Status: Acute (2) Hyperkalemia: Status: Acute (3) Pulmonary edema: Status: Acute (4) Anemia: Status: Acute (5) ESRD (end stage renal disease): Status: Acute Assessment and Plan: 71yo M with ESRD on HD TuThSa, inoperable brain tumor, DM2, hx CVA, CAD, GERD, HCV, HLD, HTN, NICM, HUGH, PVD Missed HD and presented to ED with dyspnea, placed on CPAP for respiratory failure from volume overload Admitted to ICU for emergent dialysis, stepped down to [facility] same day # acute respiratory failure - resolved p HD # volume overload # ESRD - HD again today, Nephrology following - Phos binders # hyperK - HD today, recheck BMP in am # hypoNa - water restriction, recheck BMP in am # anemia of ESRD - epo as per Nephrology # NICM # HTN - continue Imdur, hydralazine, Imdur, valsartan # DM - correction-dose lispro # inoperable brain tumor - pt is DNR/DNI # VTE ppx - UFH # dispo - notable weakness, STR recommended Quality Stroke Does the patient have a stroke diagnosis?: No VTE Prior VTE?: No VTE Risk Level:: Medical - moderate - high VTE Device Contraindication: N/A - Device Ordered VTE Drug Contraindication: Treatment Not Indicated
[2021-06-15 08:17] LABS: Glucose, Whole Blood 86 mg/dL (60-115)
[2021-06-15 08:40] LABS: Hematocrit 26.8 % (42-52); Hemoglobin 9.2 g/dl (14.0-18.0); Mean Corpuscular HGB Conc 34.3 g/dl (31.0-36.0); Mean Corpuscular Hemoglobin 31.2 pg (27.0-33.0); Mean Corpuscular Volume 90.8 fL (80-98); Mean Platelet Volume 10.5 fL (9.4-12.4); Platelet Count 155 X10*3/uL (160-400); Red Blood Count 2.95 X10*6/uL (4.60-5.80); Red Cell Distribution Width 13.9 % (11.0-16.0); White Blood Count 3.7 X10*3/uL (4.8-10.8)
[2021-06-15 09:15] LABS: Anion Gap 16 (12-20); Blood Urea Nitrogen 25 mg/dL (9-16); Calcium 7.9 mg/dL (8.4-10.2); Carbon Dioxide 23 mmol/L (22-29); Chloride 98 mmol/L (96-108); Creatinine Clr Calc Pharmacy 15.3; Estimated Glomerular Filt Rate 13; Glucose Random 93 mg/dL (60-115); Potassium 5.7 mmol/L (3.3-5.1); Sodium 131 mmol/L (135-145)
--- NOTE | 2021-06-15 11:23 | MHC.CM.PN ---
Patient is receiving HD; CM spoke with PAINTING TRADES WORKER/HCP/KAREY at [phone]. Patient lives in an apartment and he has a PAINTING TRADES WORKER with him virtually AT[employer] (approved for [address] PAINTING TRADES WORKER hours/week). Patient is active with [facility] and the goal for dc is to return home & resume these services.CM has initiated and will follow for dc planning. PCP is Dr. Rushing.Patient receives HD at [facility] Margie Kee,TH,SAT.
--- NOTE | 2021-06-15 12:08 | P.PNNP_ITS ---
Subjective Subjective Date of Service: 06/15/21 Principal diagnosis: ESRD Interval history: seen and examined on dialysis Physical Exam Vital Signs: Vital Signs: Last Vital Signs Temp 98.0 F 06/15/21 07:31 Pulse 77 06/15/21 09:12 Resp 18 06/15/21 07:31 BP 132/64 06/15/21 09:12 Pulse Ox 93 06/15/21 09:12 Body Mass Index 25.1 Const: General: no acute distress HENMT: Head: Yes normocephalic and Yes atraumatic Neck: Neck: Yes supple Resp: Auscultation: diminished lung sounds Cardio: Heart sounds: S1 normal heart sound present and S2 normal heart sound present GI: Palpation (GI): Soft to palpation and nontender Extrem: General: Yes pedal edema Objective Data Labs CBC & Chem 7: 06/15/21 08:23 06/15/21 08:23 Labs: Laboratory Results - last 24 hr 06/14/21 06/14/21 06/14/21 12:27 12:27 12:27 WBC 4.3 L RBC 2.85 L Hgb 8.8 L Hct 26.0 L MCV 91.2 MCH 30.9 MCHC 33.8 RDW 13.8 Plt Count 149 L D MPV 10.6 Immature Gran % (Auto) 0.2 Neut % (Auto) 63.3 Lymph % (Auto) 19.5 L [place] % (Auto) 12.1 H Eos % (Auto) 4.2 H Baso % (Auto) 0.7 Lymph # (Auto) 0.8 L [place] # (Auto) 0.5 Eos # (Auto) 0.2 Baso # (Auto) 0.0 Abs Immat Gran (auto) 0.01 Absolute Neuts (auto) 2.7 Absolute Nucleated RBC 0.000 Nucleated RBC % (auto) 0.0 PT 13.2 H INR 1.2 H O2 Saturation ABG pH at Pt Temp ABG pH (Temp Correct) ABG pCO2 at Pt Temp ABG pCO2 (Temp Corrct ABG pO2 at Pt Temp ABG pO2 (Temp Correct ABG HCO3 ABG Base Excess (Actual) VBG pH VBG pCO2 VBG pO2 VBG HCO3 VBG O2 Saturation VBG Base Excess Sodium 126 L Potassium 5.9 H D Chloride 89 L Carbon Dioxide 25 Anion Gap 18 BUN 52 H D Creatinine 7.07 H* Estim Creat Clear Calc 10.0 Estimated GFR 8 POC Glucose Random Glucose 124 H Calcium 8.0 L Total Bilirubin 0.8 Direct Bilirubin AST 28 D ALT 8 Alkaline Phosphatase 215 H Troponin I High Sens Total Protein 7.4 Albumin 3.5 COVID-19 (KATLIN) COVID-19 Clin Com 06/14/21 06/14/21 06/14/21 12:27 12:27 12:31 WBC RBC Hgb Hct MCV MCH MCHC RDW Plt Count MPV Immature Gran % (Auto) Neut % (Auto) Lymph % (Auto) [place] % (Auto) Eos % (Auto) Baso % (Auto) Lymph # (Auto) [place] # (Auto) Eos # (Auto) Baso # (Auto) Abs Immat Gran (auto) Absolute Neuts (auto) Absolute Nucleated RBC Nucleated RBC % (auto) PT INR O2 Saturation ABG pH at Pt Temp ABG pH (Temp Correct) ABG pCO2 at Pt Temp ABG pCO2 (Temp Corrct ABG pO2 at Pt Temp ABG pO2 (Temp Correct ABG HCO3 ABG Base Excess (Actual) VBG pH VBG pCO2 VBG pO2 VBG HCO3 VBG O2 Saturation VBG Base Excess Sodium Potassium Chloride Carbon Dioxide Anion Gap BUN Creatinine Estim Creat Clear Calc Estimated GFR POC Glucose Random Glucose Calcium Total Bilirubin 0.8 Direct Bilirubin 0.2 AST 28 ALT 8 Alkaline Phosphatase 215 H Troponin I High Sens 28.4 D Total Protein 7.3 Albumin 3.5 COVID-19 (KATLIN) Negative COVID-19 Clin Com See Note 06/14/21 06/14/21 06/14/21 14:13 14:59 16:37 WBC RBC Hgb Hct MCV MCH MCHC RDW Plt Count MPV Immature Gran % (Auto) Neut % (Auto) Lymph % (Auto) [place] % (Auto) Eos % (Auto) Baso % (Auto) Lymph # (Auto) [place] # (Auto) Eos # (Auto) Baso # (Auto) Abs Immat Gran (auto) Absolute Neuts (auto) Absolute Nucleated RBC Nucleated RBC % (auto) PT INR O2 Saturation 96.0 ABG pH at Pt Temp 7.44 ABG pH (Temp Correct) 7.44 ABG pCO2 at Pt Temp 37 ABG pCO2 (Temp Corrct 37 ABG pO2 at Pt Temp 85 ABG pO2 (Temp Correct 84 ABG HCO3 25 ABG Base Excess (Actual) 2.0 VBG pH 7.43 VBG pCO2 41 VBG pO2 119 VBG HCO3 27 H VBG O2 Saturation 98.0 VBG Base Excess 3.3 Sodium Potassium Chloride Carbon Dioxide Anion Gap BUN Creatinine Estim Creat Clear Calc Estimated GFR POC Glucose 178 H Random Glucose Calcium Total Bilirubin Direct Bilirubin AST ALT Alkaline Phosphatase Troponin I High Sens Total Protein Albumin COVID-19 (KATLIN) COVID-19 CFX BATTERY 06/15/21 06/15/21 06/15/21 08:11 08:23 08:23 WBC 3.7 L RBC 2.95 L Hgb 9.2 L Hct 26.8 L MCV 90.8 MCH 31.2 MCHC 34.3 RDW 13.9 Plt Count 155 L MPV 10.5 Immature Gran % (Auto) Neut % (Auto) Lymph % (Auto) [place] % (Auto) Eos % (Auto) Baso % (Auto) Lymph # (Auto) [place] # (Auto) Eos # (Auto) Baso # (Auto) Abs Immat Gran (auto) Absolute Neuts (auto) Absolute Nucleated RBC 0.000 Nucleated RBC % (auto) 0.0 PT INR O2 Saturation ABG pH at Pt Temp ABG pH (Temp Correct) ABG pCO2 at Pt Temp ABG pCO2 (Temp Corrct ABG pO2 at Pt Temp ABG pO2 (Temp Correct ABG HCO3 ABG Base Excess (Actual) VBG pH VBG pCO2 VBG pO2 VBG HCO3 VBG O2 Saturation VBG Base Excess Sodium 131 L Potassium 5.7 H Chloride 98 Carbon Dioxide 23 Anion Gap 16 BUN 25 H D Creatinine 4.61 H* Estim Creat Clear Calc 15.3 Estimated GFR 13 POC Glucose 86 Random Glucose 93 Calcium 7.9 L Total Bilirubin Direct Bilirubin AST ALT Alkaline Phosphatase Troponin I High Sens Total Protein Albumin COVID-19 (KATLIN) COVID-19 CFX BATTERY Procedures Date of Service Date of Service: 06/15/21 Assessment & Plan Assessment and plan (1) ESRD (end stage renal disease): Status: Acute (2) Hyperkalemia: Status: Acute (3) Anemia: Status: Acute Assessment and Plan: HD today optimize volume status renal diet phosphate binders restrict free water intake SVITLANA per protocol Time Spent With Patient Time: Total time spent is greater than 50% in coordination of care (as documented) at patient's floor/unit and/or counseling patient:
[2021-06-15 16:49] LABS: Glucose, Whole Blood 76 mg/dL (60-115)
--- NOTE | 2021-06-15 16:51 | PC.NURSE ---
P patient refuses to eat or drink,unable to administer meds,BS [address] Douglas notified E will monitor
[2021-06-15] MEDS: Heparin Sodium,Porcine 5,000 UNIT/ML VIAL 5000 UNIT SUBCUT (18:03)
[2021-06-15] MEDS: Dextrose 5 % and 0.45 % NaCl 1,000 ML 60 ML IVCONT (18:04)
[2021-06-15 19:15] LABS: Glucose, Whole Blood 83 mg/dL (60-115)
[2021-06-15] MEDS: Aspirin Enteric Coated 81 MG TABLET.DR PO (21:23)
[2021-06-15] MEDS: hydrALAZINE HCl 50 MG TABLET 100 MG PO (21:24)
[2021-06-15] MEDS: Omeprazole 20 MG CAPSULE.DR PO (21:24)
[2021-06-15 21:36] LABS: Glucose, Whole Blood 92 mg/dL (60-115)
[2021-06-16] VITALS (10 sets, daily range): BP systolic 106–141; BP diastolic 59–78; PULSE 66–73; RESP 18–20; TEMP 36.3–36.9; O2SAT 97–100; BMI 23.1
[2021-06-16 00:18] LABS: Glucose, Whole Blood 88 mg/dL (60-115)
[2021-06-16] MEDS: Heparin Sodium,Porcine 5,000 UNIT/ML VIAL 5000 UNIT SUBCUT ×2 (04:46→15:07)
[2021-06-16 07:07] LABS: Glucose, Whole Blood 92 mg/dL (60-115)
[2021-06-16 07:47] LABS: Hematocrit 30.8 % (42-52); Hemoglobin 10.6 g/dl (14.0-18.0); Mean Corpuscular HGB Conc 34.4 g/dl (31.0-36.0); Mean Corpuscular Hemoglobin 31.4 pg (27.0-33.0); Mean Corpuscular Volume 91.1 fL (80-98); Mean Platelet Volume 9.7 fL (9.4-12.4); Platelet Count 186 X10*3/uL (160-400); Red Blood Count 3.38 X10*6/uL (4.60-5.80); Red Cell Distribution Width 13.5 % (11.0-16.0); White Blood Count 3.6 X10*3/uL (4.8-10.8)
[2021-06-16 08:10] LABS: Anion Gap 18 (12-20); Blood Urea Nitrogen 14 mg/dL (9-16); Calcium 7.9 mg/dL (8.4-10.2); Carbon Dioxide 21 mmol/L (22-29); Chloride 100 mmol/L (96-108); Creatinine Clr Calc Pharmacy 21.1; Estimated Glomerular Filt Rate 18; Glucose Random 91 mg/dL (60-115); Potassium 4.6 mmol/L (3.3-5.1); Sodium 134 mmol/L (135-145)
--- NOTE | 2021-06-16 08:32 | PM.PNNEP ---
Subjective Subjective Date of Service: 06/16/21 Principal diagnosis: ESRD Interval history: seen and examined comfortable no complaints had HD yesterday Physical Exam Vital Signs: Vital Signs: Last Vital Signs Temp 98.5 F 06/16/21 07:19 Pulse 68 06/16/21 07:19 Resp 18 06/16/21 07:19 BP 137/64 06/16/21 07:19 Pulse Ox 98 06/16/21 07:19 Body Mass Index 23.1 Const: General: no acute distress HENMT: Head: Yes normocephalic and Yes atraumatic Neck: Neck: Yes supple Resp: Auscultation: diminished lung sounds Cardio: Heart sounds: S1 normal heart sound present and S2 normal heart sound present GI: Palpation (GI): Soft to palpation and nontender Extrem: General: Yes pedal edema Objective Data Labs CBC & Chem 7: 06/16/21 07:17 06/16/21 07:17 Labs: Laboratory Results - last 24 hr 06/15/21 06/15/21 06/15/21 08:23 08:23 16:46 WBC 3.7 L RBC 2.95 L Hgb 9.2 L Hct 26.8 L MCV 90.8 MCH 31.2 MCHC 34.3 RDW 13.9 Plt Count 155 L MPV 10.5 Absolute Nucleated RBC 0.000 Nucleated RBC % (auto) 0.0 Sodium 131 L Potassium 5.7 H Chloride 98 Carbon Dioxide 23 Anion Gap 16 BUN 25 H D Creatinine 4.61 H* Estim Creat Clear Calc 15.3 Estimated GFR 13 POC Glucose 76 Random Glucose 93 Calcium 7.9 L 06/15/21 06/15/21 06/16/21 19:07 21:32 00:14 WBC RBC Hgb Hct MCV MCH MCHC RDW Plt Count MPV Absolute Nucleated RBC Nucleated RBC % (auto) Sodium Potassium Chloride Carbon Dioxide Anion Gap BUN Creatinine Estim Creat Clear Calc Estimated GFR POC Glucose 83 92 88 Random Glucose Calcium 06/16/21 06/16/21 06/16/21 07:01 07:17 07:17 WBC 3.6 L RBC 3.38 L Hgb 10.6 L Hct 30.8 L MCV 91.1 MCH 31.4 MCHC 34.4 RDW 13.5 Plt Count 186 MPV 9.7 Absolute Nucleated RBC 0.000 Nucleated RBC % (auto) 0.0 Sodium 134 L Potassium 4.6 Chloride 100 Carbon Dioxide 21 L Anion Gap 18 BUN 14 Creatinine 3.36 H Estim Creat Clear Calc 21.1 Estimated GFR 18 POC Glucose 92 Random Glucose 91 Calcium 7.9 L Procedures Date of Service Date of Service: 06/16/21 Assessment & Plan Assessment and plan (1) ESRD (end stage renal disease): Status: Acute (2) Hyperkalemia: Status: Acute (3) Anemia: Status: Acute Assessment and Plan: HD per schedule renal diet phosphate binders restrict free water intake SVITLANA per protocol Time Spent With Patient Time: Total time spent is greater than 50% in coordination of care (as documented) at patient's floor/unit and/or counseling patient: Progress Note: Quality Stroke Does the patient have a stroke diagnosis?: No
[2021-06-16] MEDS: Valsartan 320 MG TABLET PO (08:52)
[2021-06-16] MEDS: hydrALAZINE HCl 50 MG TABLET 100 MG PO ×3 (08:52→21:16)
[2021-06-16] MEDS: Multivitamin TABLET 1 TAB PO (08:52)
[2021-06-16] MEDS: Calcium Acetate 667 MG CAPSULE PO (08:53)
[2021-06-16] MEDS: Metoprolol Succinate ER 100 MG TAB.ER.24H PO (08:53)
[2021-06-16] MEDS: Omeprazole 20 MG CAPSULE.DR PO ×2 (08:53→21:16)
[2021-06-16] MEDS: PARoxetine HCL 10 MG TABLET PO (08:53)
[2021-06-16] MEDS: Isosorbide Mononitrate 60 MG TAB.ER.24H PO (08:53)
[2021-06-16 10:15] LABS: COVID-19 Test Negative (Negative); IDNOW Serial# 9DD0AD1C
--- NOTE | 2021-06-16 10:20 | MHC.CM.PN ---
Addendum entered by Hawa Crawford 06/17/21 08:31: PT IS EXPECTED TO DC TO [facility] TODAY FOR STR. SNF UNABLE TO ACCEPT PT THURSDAY THEY COULD NOT CONFIRM PTS SPOT FOR HD. Addendum entered by Hawa Crawford 06/16/21 12:00: [facility] IS OFFERING A STR BED FOR THIS PT. CM CONTACTED PTS HCP WHO REPORTS THEY WOULD PREFER [facility] PT WILL BE ABLE TO RECEIVE HIS HD ON SITE. KAREY ALSO REPORTED HE WAS ABOUT 3 BLOCKS FROM [facility] AND WOULD BE BRINGING IN THE HCP SOON. Addendum entered by Hawa Crawford 06/16/21 10:32: CM CONTACTED KAREY ([phone]) WHO IS LISTED PTS HCP IN CM NOTES. KAREY REPORTS HE BECAME THE PTS PROXY ABOUT 3 MONTHS AGO AND IS ALSO HIS MANAGER RADIO. KAREY REPORTS HE SUPPORTS THE RECOMMENDATION THAT PT GO TO STR AND WILL DISCUSS IT WITH PTS FAMILY. PER DISCUSSION REFERRALS WERE MADE TO LOCAL SNFS [facility] WHERE THE PT HAS BEEN IN THE PAST. KAREY IS AWARE A COPY OF THE NEW HCP WILL BE REQUIRED. HE WILL BRING IT IN TODAY. HE ALSO REPORTS THE PT DID RECEIVE THE [facility] COVID 19 VACCINE VIA HIS HD CENTER REFERRALS PLACED, AWAITING RESPONSES Original Note: PT HAS A HCP ON FILE NAMING [facility] HOWEVER THE NUMBER LISTED ([phone]) IS OUT OF SERVICE.
--- NOTE | 2021-06-16 11:14 | P.PNIM_ITS ---
Subjective Subjective Date of Service: 06/16/21 Interval History: Appetite improved No respiratory problems No chest pain HD done yesterday Would like to go to [facility] as recommended Review of Systems Review of Systems: Yes all other systems are reviewed and are negative Physical Exam Vital Signs: Vital Signs: Last Vital Signs Temp 97.7 F 06/16/21 11:11 Pulse 73 06/16/21 11:11 Resp 18 06/16/21 11:11 BP 127/67 06/16/21 11:11 Pulse Ox 100 06/16/21 11:11 Body Mass Index 23.1 Gen: chronically ill-appearing, no respiratory distress HEENT: marked L proptosis, sclera anicteric, moist mucus membranes Neck: supple Lungs: diminished bilaterally, more so on R Heart: regular rate and rhythm, no murmurs Abd: soft, non-tender, non-distended Ext: no edema Skin: warm/well-perfused Neuro: alert and oriented x3, no focal findings Psych: appropriate affect Objective Data Active Medications Aspirin (Aspirin Enteric Coated 81 Mg Tablet.) 81 mg PO BEDTIME [facility] Last Admin: 06/15/21 21:23 Dose: 81 mg Documented by: ALIX Calcium Acetate (Calcium Acetate 667 Mg Capsule) 667 mg PO DAILY [facility] Last Admin: 06/16/21 08:53 Dose: 667 mg Documented by: PETER Heparin Sodium (Porcine) (Heparin Sodium,Porcine 5,000 Unit/Ml Vial) 5,000 unit SUBCUT Q12H [facility] Last Admin: 06/16/21 04:46 Dose: 5,000 unit Documented by: JAYNE Hydralazine HCl (Hydralazine Hcl 50 Mg Tablet) 100 mg PO TID [facility]; Protocol Last Admin: 06/16/21 08:52 Dose: 100 mg Documented by: PETER Isosorbide Mononitrate (Isosorbide Mononitrate 60 Mg Tab.Er.24h) 60 mg PO DAILY [facility]; Protocol Last Admin: 06/16/21 08:53 Dose: 60 mg Documented by: PETER Metoprolol Succinate (Metoprolol Succinate Er 100 Mg Tab.Er.24h) 100 mg PO DAILY [facility]; Protocol Last Admin: 06/16/21 08:53 Dose: 100 mg Documented by: PETER Multivitamins/Vitamin C (Multivitamin Tablet) 1 tab PO DAILY [facility] Last Admin: 06/16/21 08:52 Dose: 1 tab Documented by: PETER Omeprazole (Omeprazole 20 Mg Capsule.Dr) 20 mg PO BID [facility] Last Admin: 06/16/21 08:53 Dose: 20 mg Documented by: PETER Oxycodone HCl (Oxycodone Hcl Immed Release 5 Mg Tablet) 5 mg PO Q8H PRN PRN Reason: Pain Paroxetine HCl (Paroxetine Hcl 10 Mg Tablet) 10 mg PO DAILY [facility] Last Admin: 06/16/21 08:53 Dose: 10 mg Documented by: PETER Pharmacy Consult (Consult Rx Perform Med Rec) 1 each MISCELLANE ONCE PRN PRN Reason: Consult order Valsartan (Valsartan 320 Mg Tablet) 320 mg PO DAILY [facility]; Protocol Last Admin: 06/16/21 08:52 Dose: 320 mg Documented by: PETER Labs CBC & Chem 7: 06/16/21 07:17 06/16/21 07:17 Labs: Laboratory Results - last 24 hr 06/15/21 06/15/21 06/15/21 16:46 19:07 21:32 MCV MCH MCHC RDW Plt Count MPV Absolute Nucleated RBC Nucleated RBC % (auto) Anion Gap Estim Creat Clear Calc Estimated GFR POC Glucose 76 83 92 Random Glucose Calcium COVID-19 ([facility]ATLIN) COVID-19 Clin [employer] 06/16/21 06/16/21 06/16/21 00:14 07:01 07:17 MCV 91.1 MCH 31.4 MCHC 34.4 RDW 13.5 Plt Count 186 MPV 9.7 Absolute Nucleated RBC 0.000 Nucleated RBC % (auto) 0.0 Anion Gap Estim Creat Clear Calc Estimated GFR POC Glucose 88 92 Random Glucose Calcium COVID-19 (KATLIN) COVID-19 Clin Com 06/16/21 06/16/21 07:17 09:36 MCV MCH MCHC RDW Plt Count MPV Absolute Nucleated RBC Nucleated RBC % (auto) Anion Gap 18 Estim Creat Clear Calc 21.1 Estimated GFR 18 POC Glucose Random Glucose 91 Calcium 7.9 L COVID-19 (KATLIN) Negative COVID-19 Clin Com See Note Assessment and Plan (1) Volume overload: Status: Acute (2) Hyperkalemia: Status: Acute (3) Pulmonary edema: Status: Acute (4) Anemia: Status: Acute (5) ESRD (end stage renal disease): Status: Acute Assessment and Plan: hospital d#3 71yo M with ESRD on HD TuThSa, inoperable brain tumor, DM2, hx CVA, CAD, GERD, HCV, HLD, HTN, NICM, HUGH, PVD Missed HD and presented to ED with dyspnea, placed on CPAP for respiratory failure from volume overload Admitted to ICU for emergent dialysis, stepped down to [facility] same day # acute respiratory failure - resolved p HD # volume overload # ESRD - HD 06/14 and 06/15, Nephrology following - Phos binders (Ca acetate) # hyperK - resolved p HD # hypoNa - largely resolved # anemia of ESRD - epo as per Nephrology # NICM # HTN - continue Imdur, hydralazine, Imdur, valsartan # DM - correction-dose lispro # inoperable brain tumor - pt is DNR/DNI # VTE ppx - UFH # dispo - plan [facility] Quality Stroke Does the patient have a stroke diagnosis?: No VTE Prior VTE?: No VTE Risk Level:: Medical - moderate - high VTE Device Contraindication: N/A - Device Ordered VTE Drug Contraindication: Treatment Not Indicated
--- NOTE | 2021-06-16 11:19 | P.DS_ITS ---
DS: Providers Provider Date of Service: 06/16/21 Date of admission: 06/14/21 15:28 Primary care physician: Unknown Physician Admitting clinician: Kali Braxton Attending physician on discharge: Orlando Douglas DS: Diagnosis Discharge Diagnosis (1) Volume overload: Status: Acute (2) Hyperkalemia: Status: Acute (3) Pulmonary edema: Status: Acute (4) Anemia: Status: Acute (5) ESRD (end stage renal disease): Status: Acute (6) Acute respiratory failure: Status: Acute (7) Metabolic encephalopathy: Status: Acute DS: Summary Hospital Course Hospital Course: From admission H+P by membership manager Kali Braxton MD, 06/14/21: Mr. Delgado is being admitted to ICU with acute pulmon edema, respiratory difficulty, and altered mental status. The patient is a 71-year-old male with past medical history of end-stage renal disease, on dialysis through a fistula Tuesdays, , and Saturdays.? The patient's past medical history is also most notable for an inoperable brain tumor (see more below) that he has had for some time.? According to the dialysis nurse who knows him, he often gets confused and misses dialysis. The past medical history is also notable for: Diabetes Acute CVA (cerebrovascular accident) Atypical chest pain CAD (coronary artery disease) GERD (gastroesophageal reflux disease) Hepatitis C HLD (hyperlipidemia) HTN (hypertension) Non-ischemic cardiomyopathy HUGH (obstructive sleep apnea) Peripheral vascular disease Pneumonia The patient has DNR/DNI status. The ambulance was called today reportedly bec of left lower quadrant pain.? When he arrived in the ED, he denied abdominal pain.? He denied shortness of breath, chest pain, nausea, or vomiting.? He stated he just did not feel well.? The patient missed dialysis yesterday, told the ED staff that he was not feeling well, nothing specific, decided not to go to dialysis. On arrival to the ED today just before noon, the heart rate was 71, blood pressure 151/73, respiratory rate 24, sat 95% on room air.? Temperature was 98.4 degrees.? He was initially alert and oriented.? He had increased work of breathing with bilateral crackles, no wheezing, and good air movement.? The abdomen was benign.? He had no edema.? He had no slurred speech. The patient's blood pressure nadya to 170 systolic and he started to breathe heavy.? He was put on CPAP.? He was given Lasix and nitropaste.? His mental status became altered.? I went to see him in the ED. This 71yo M with ESRD on HD TuThSa, inoperable brain tumor, DM2, hx CVA, CAD, GERD, HCV, HLD, HTN, NICM, HUGH, PVD missed HD and presented to the ED with dyspnea. As above, he was placed on CPAP for respiratory failure from volume overload and admitted to the ICU for emergent HD. He was stepped down to the same day. He underwent HD 06/14 and again 06/15. Hyperkalemia, metabolic encephalopathy, and respiratory failure all resolved. The importance of not missing any HD sessions was counseled in detail. He was seen by PT and short- term rehabilitation was recommended; he was discharged to [facility] for this. Time Spent with Patient Time attestation: Total time spent providing and/or coordinating discharge services: Discharge coordination time: Greater than 30 minutes Quality: Stroke Does the patient have a stroke diagnosis?: No Physical Exam Vital Signs: Vital Signs: Last Vital Signs Temp 97.7 F 06/16/21 11:11 Pulse 73 06/16/21 11:11 Resp 18 06/16/21 11:11 BP 127/67 06/16/21 11:11 Pulse Ox 100 06/16/21 11:11 Body Mass Index 23.1 Gen: chronically ill-appearing, no respiratory distress HEENT: marked L proptosis, sclera anicteric, moist mucus membranes Neck: supple Lungs: diminished bilaterally, more so on R Heart: regular rate and rhythm, no murmurs Abd: soft, non-tender, non-distended Ext: no edema Skin: warm/well-perfused Neuro: alert and oriented x3, no focal findings Psych: appropriate affect DS: Data Data Completed and Pending Completed studies during hospitalization [Text1]: Laboratory Results WBC 3.6 X10*3/uL (4.8-10.8) L 06/16/21 07:17 RBC 3.38 X10*6/uL (4.60-5.80) L 06/16/21 07:17 Hgb 10.6 g/dl (14.0-18.0) L 06/16/21 07:17 Hct 30.8 % (42-52) L 06/16/21 07:17 MCV 91.1 fL (80-98) 06/16/21 07:17 MCH 31.4 pg (27.0-33.0) 06/16/21 07:17 MCHC 34.4 g/dl (31.0-36.0) 06/16/21 07: RDW 13.5 % (11.0-16.0) 06/16/21 07:17 Plt Count 186 X10*3/uL (160-400) 06/16/21 07:17 MPV 9.7 fL (9.4-12.4) 06/16/21 07: Immature Gran % (Auto) 0.2 % (0.0-0.4) 06/14/21 12: Neut % (Auto) 63.3 % (45-73) 06/14/21 12:27 Lymph % (Auto) 19.5 % (20-40) L 06/14/21 12:27 [place] % (Auto) 12.1 % (2-11) H 06/14/21 12:27 Eos % (Auto) 4.2 % (0-4) H 06/14/21 12: Baso % (Auto) 0.7 % (0-2) 06/14/21 12:27 Lymph # (Auto) 0.8 X10*3/uL (1.2-4.9) L 06/14/21 12:27 [place] # (Auto) 0.5 X10*3/uL (0.1-1.2) 06/14/21 12: Eos # (Auto) 0.2 X10*3/uL (0.0-0.4) 06/14/21 12: Baso # (Auto) 0.0 X10*3/uL (0.0-0.2) 06/14/21 12: Abs Immat Gran (auto) 0.01 X10*3/uL (0.00-0.03) 06/14/21 12: Absolute Neuts (auto) 2.7 X10*3/uL (2.0-8.3) 06/14/21 12: Absolute Nucleated RBC 0.000 X10*3/uL (0.0-0.012) 06/16/21 07:17 Nucleated RBC % (auto) 0.0 /100WBC (0.0-0.2) 06/16/21 07:17 PT 13.2 SEC (9.9-13.0) H 06/14/21 12:27 INR 1.2 (0.9-1.1) H 06/14/21 12:27 O2 Saturation 96.0 % 06/14/21 14:59 ABG pH at Pt Temp 7.44 (7.35-7.45) 06/14/21 14:59 ABG pH (Temp Correct) 7.44 (7.35-7.45) 06/14/21 14:59 ABG pCO2 at Pt Temp 37 mmHg (32-45) 06/14/21 14:59 ABG pCO2 (Temp Corrct 37 mmHg (32-45) 06/14/21 14:59 ABG pO2 at Pt Temp 85 mmHg (83-108) 06/14/21 14:59 ABG pO2 (Temp Correct 84 (83-108) 06/14/21 14:59 ABG HCO3 25 mmol/L (22-26) 06/14/21 14:59 ABG Base Excess (Actual) 2.0 mmol/L 06/14/21 14:59 VBG pH 7.43 (7.32-7.43) 06/14/21 16:37 VBG pCO2 41 mmHg 06/14/21 16:37 VBG pO2 119 mmHg 06/14/21 16:37 VBG HCO3 27 mmol/L (22-26) H 06/14/21 16:37 VBG O2 Saturation 98.0 % 06/14/21 16:37 VBG Base Excess 3.3 mmol/L 06/14/21 16:37 Sodium 134 mmol/L (135-145) L 06/16/21 07:17 Potassium 4.6 mmol/L (3.3-5.1) 06/16/21 07:17 Chloride 100 mmol/L (96-108) 06/16/21 07:17 Carbon Dioxide 21 mmol/L (22-29) L 06/16/21 07:17 Anion Gap 18 (12-20) 06/16/21 07:17 BUN 14 mg/dL (9-16) 06/16/21 07:17 Creatinine 3.36 mg/dL (0.5-1.4) H 06/16/21 07:17 Estim Creat Clear Calc 21.1 06/16/21 07:17 Estimated GFR 18 06/16/21 07:17 POC Glucose 92 mg/dL (60-115) 06/16/21 07:01 Random Glucose 91 mg/dL (60-115) 06/16/21 07:17 Calcium 7.9 mg/dL (8.4-10.2) L 06/16/21 07:17 Total Bilirubin 0.8 mg/dL (0.0-1.0) 06/14/21 12:27 Total Bilirubin 0.8 mg/dL (0.0-1.0) 06/14/21 12:27 Direct Bilirubin 0.2 mg/dL (0.0-0.5) 06/14/21 12:27 AST 28 U/L (5-37) 06/14/21 12:27 AST 28 U/L (5-37) D 06/14/21 12:27 ALT 8 U/L (0-40) 06/14/21 12:27 ALT 8 U/L (0-40) 06/14/21 12:27 Alkaline Phosphatase 215 U/L (39-117) H 06/14/21 12:27 Alkaline Phosphatase 215 U/L (39-117) H 06/14/21 12:27 Troponin I High Sens 28.4 ng/L (<3.5-35.0) D 06/14/21 12:27 Total Protein 7.3 g/dL (6.5-8.0) 06/14/21 12:27 Total Protein 7.4 g/dL (6.5-8.0) 06/14/21 12:27 Albumin 3.5 g/dL (3.5-5.0) 06/14/21 12:27 Albumin 3.5 g/dL (3.5-5.0) 06/14/21 12:27 COVID-19 ([facility]ATLIN) Negative (Negative) 06/16/21 09:36 COVID-19 Clin Com See Note 06/16/21 09:36 Impressions Chest X-Ray 06/14/21 14:25 IMPRESSION: Bilateral airspace opacities and right-sided pleural effusion, unchanged. Head CT 06/14/21 14:51 IMPRESSION: 1. 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 Status post left temporal craniotomy. 2. No acute intracranial abnormality, no acute bleed or infarct. Discharge Plan Discharge Patient Disposition: er [facility] Discharge Diagnosis: respiratory failure due to volume overload due to missed dialysis Referrals: Richi Sweeney MD [Primary Care Provider] - 1 Week Discharge Medications: Continued paroxetine HCl 10 mg tablet 1 tab PO QAM RF: 0 metoprolol succinate 100 mg tablet extended release 24 hr 1 tab PO QAM RF: 0 aspirin 81 mg tablet,delayed release (DR/EC) 1 tab PO QPM RF: 0 hydralazine 100 mg tablet 1 tab PO TID RF: 0 calcium acetate(phosphat bind) 667 mg capsule 1 cap PO DAILY RF: 0 valsartan 160 mg tablet 2 tab PO QAM RF: 0 isosorbide mononitrate 60 mg tablet extended release 24 hr 1 tab PO DAILY RF: 0 Prosol 20 % Parenteral Solution IV RF: 0 omeprazole 20 mg capsule,delayed release(DR/EC) 1 cap PO BID RF: 0 Triphrocaps 1 mg capsule 1 cap PO QAM RF: 0 oxycodone 5 mg Tablet 5 mg PO Q8H PRN (Reason: Pain) RF: 0 Discharge Orders: Discharge Order (Routine); Ordered 06/16/21 Ordered By: Orlando Douglas Diet: advance to usual diet Activity on Discharge: As tolerated Stand Alone Forms: Patient Portal Discharge page Care Plan Goals: avoid hospitalization Health Concerns: respiratory failure due to volume overload due to missed dialysis Plan of Treatment: short-term rehabiltation do not skip dialysis Assessment: see Discharge Summary
[2021-06-16 11:34] LABS: Glucose, Whole Blood 112 mg/dL (60-115)
[2021-06-16 15:58] LABS: Glucose, Whole Blood 156 mg/dL (60-115)
[2021-06-16 21:14] LABS: Glucose, Whole Blood 138 mg/dL (60-115)
[2021-06-16] MEDS: Aspirin Enteric Coated 81 MG TABLET.DR PO (21:14)
[2021-06-17 04:00] VITALS: BP 154/85; PULSE 67; RESP 18; TEMP 36.2; O2SAT 99
[2021-06-17] MEDS: Heparin Sodium,Porcine 5,000 UNIT/ML VIAL 5000 UNIT SUBCUT (04:54)
[2021-06-17 06:00] VITALS: BMI 24.0
[2021-06-17 07:26] LABS: Glucose, Whole Blood 88 mg/dL (60-115)
[2021-06-17 07:32] VITALS: BP 153/68; PULSE 74; RESP 20; TEMP 36.1; O2SAT 98
[2021-06-17 10:36] VITALS: BP 153/68; PULSE 74
[2021-06-17] MEDS: Valsartan 320 MG TABLET PO (10:36)
[2021-06-17 10:37] VITALS: BP 153/68; PULSE 74
[2021-06-17] MEDS: Metoprolol Succinate ER 100 MG TAB.ER.24H PO (10:37)
[2021-06-17] MEDS: Omeprazole 20 MG CAPSULE.DR PO (10:37)
[2021-06-17] MEDS: Isosorbide Mononitrate 60 MG TAB.ER.24H PO (10:37)
[2021-06-17] MEDS: Calcium Acetate 667 MG CAPSULE PO (10:37)
[2021-06-17] MEDS: PARoxetine HCL 10 MG TABLET PO (10:37)
[2021-06-17] MEDS: hydrALAZINE HCl 50 MG TABLET 100 MG PO (10:37)
[2021-06-17] MEDS: Multivitamin TABLET 1 TAB PO (10:38)
[2021-06-17 11:19] LABS: Glucose, Whole Blood 221 mg/dL (60-115)
[2021-06-17 11:37] VITALS: BP 141/74; PULSE 77; RESP 18; TEMP 35.9; O2SAT 97
--- NOTE | 2021-06-17 12:02 | PM.PNNEP ---
Subjective Subjective Date of Service: 06/17/21 Principal diagnosis: ESRD Interval history: Events noted Feeling better Physical Exam Vital Signs: Vital Signs: Last Vital Signs Temp 96.7 F L 06/17/21 11:37 Pulse 77 06/17/21 11:37 Resp 18 06/17/21 11:37 BP 141/74 H 06/17/21 11:37 Pulse Ox 97 06/17/21 11:37 Body Mass Index 24.0 Const: Orientation/consciousness: patient oriented x3 Neck: Neck: Yes supple Resp: Effort & Inspection: no cough Auscultation: rhonchi Cardio: Jugular venous distension: no JVD Palpation: no palpable S4 Heart sounds: no murmurs GI: Inspection: Yes obesity Palpation (GI): Soft to palpation Auscultation: normal bowel sounds Neuro: General: patient oriented x3 Motor exam (neuro): no asterixis Objective Data Labs CBC & Chem 7: 06/16/21 07:17 06/16/21 07:17 Labs: Laboratory Results - last 24 hr 06/16/21 06/16/21 06/17/21 15:51 20:02 07:13 POC Glucose 156 H 138 H 88 06/17/21 11:15 POC Glucose 221 H Procedures Date of Service Date of Service: 06/17/21 Assessment & Plan Assessment and plan (1) ESRD (end stage renal disease): Status: Acute Assessment and Plan: (1) ESRD (end stage renal disease): ? ? ? (2) Hyperkalemia: ? (3) Anemia: ? ? ? HD per schedule - TTS renal diet phosphate binders restrict free water intake SVITLANA per protocol DC planning Time Spent With Patient Time: Total time spent is greater than 50% in coordination of care (as documented) at patient's floor/unit and/or counseling patient: Time with patient: less than 15 minutes Progress Note: Quality Stroke Does the patient have a stroke diagnosis?: No
[2021-06-17 15:37] VITALS: BP 150/70; PULSE 66; RESP 19; TEMP 36.6; O2SAT 100
--- NOTE | 2021-06-17 15:48 | MHC.CM.PN ---
IMM 06/17/21 Male DX HF Respiratory failure. Discharge today to [facility]. He will transport via S.
== END 2021-06-17 17:56 | disposition skilled nursing facility (03) | DRG 640 ==
LOC: HO.ED 15:02 → HO.ICU 15:57 → HO.IMC 21:27
PROVIDERS: Admitting Provider Anesthesiology; Emergency Provider Emergency Medicine; PCP Internal Medicine; Visit Provider Family Medicine
DX: E87.70 Fluid overload, unspecified (principal); N18.6 End stage renal disease; J96.01 Acute respiratory failure with hypoxia; I12.0 Hypertensive chronic kidney disease with stage 5 chronic kidney disease or end stage renal disease; J81.1 Chronic pulmonary edema; I42.8 Other cardiomyopathies; I25.10 Atherosclerotic heart disease of native coronary artery without angina pectoris; E87.5 Hyperkalemia; Z91.15 Patient's noncompliance with renal dialysis; D49.6 Neoplasm of unspecified behavior of brain; E11.22 Type 2 diabetes mellitus with diabetic chronic kidney disease; D63.1 Anemia in chronic kidney disease; Z99.2 Dependence on renal dialysis; Z20.822 Contact with and (suspected) exposure to COVID-19; Z79.82 Long term (current) use of aspirin; Z79.899 Other long term (current) drug therapy; Z66 Do not resuscitate
CPT/HCPCS: 36415; 70450; 71045; 80048; 80053; 80076; 82803; 82947; 84484; 85025; 85027; 85610; 87635; 90999; 93005; 94660; 96365; 96366; 96375; 97162; 99285; 99291; J0610; J1940

== ENCOUNTER 2021-06-18 07:35 | Outpatient (REF) | payer MEDICARE, MEDICAID, SELFPAY ==
[2021-06-18 08:14] LABS: Hematocrit 28.8 % (42-52); Hemoglobin 9.9 g/dl (14.0-18.0); Mean Corpuscular HGB Conc 34.4 g/dl (31.0-36.0); Mean Corpuscular Hemoglobin 30.6 pg (27.0-33.0); Mean Corpuscular Volume 88.9 fL (80-98); Mean Platelet Volume 10.9 fL (9.4-12.4); Platelet Count 210 X10*3/uL (160-400); Red Blood Count 3.24 X10*6/uL (4.60-5.80); Red Cell Distribution Width 13.2 % (11.0-16.0)
[2021-06-18 08:55] LABS: Alanine Aminotransferase 6 U/L (0-40); Albumin Level 3.4 g/dL (3.5-5.0); Alkaline Phosphatase 190 U/L (39-117); Anion Gap 19 (12-20); Aspartate Amino Transferase 17 U/L (5-37); Bilirubin Total 0.6 mg/dL (0.0-1.0); Blood Urea Nitrogen 30 mg/dL (9-16); Carbon Dioxide 20 mmol/L (22-29); Chloride 94 mmol/L (96-108); Estimated Glomerular Filt Rate 9; Glucose Random 95 mg/dL (60-115); Potassium 4.4 mmol/L (3.3-5.1); Sodium 129 mmol/L (135-145)
== END 2021-06-18 07:36 | disposition home or self-care (01) ==
LOC: HO.MMNH1L 07:35
PROVIDERS: Visit Provider Family Medicine
DX: I25.10 Atherosclerotic heart disease of native coronary artery without angina pectoris (principal); I63.9 Cerebral infarction, unspecified; N18.6 End stage renal disease
CPT/HCPCS: 36415; 80053; 85027

== ENCOUNTER 2021-06-20 13:01 | Emergency (ER) | payer MEDICARE, MEDICAID, SELFPAY ==
[2021-06-20 13:12] VITALS: BP 135/73; PULSE 88; RESP 18; TEMP 37.1; O2SAT 96; BMI 27.4
--- NOTE | 2021-06-20 13:21 | ED.GENADULT ---
HPI - General Adult General Chief complaint: General Medical Stated complaint: BLEEDING SHUNT FROM DIALYSIS PER EMS Time Seen by Provider: 06/20/21 13:21 Source: patient Mode of arrival: ambulatory Limitations: other (Patient is nonverbal but shakes his head yes and no) History of Present Illness HPI narrative: 71-year-old male who was sent to the emergency department for evaluation of bleeding from the left dialysis sent. The patient was at dialysis and completed his full course of dialysis. Apparently he was bleeding from his shunt and he was sent to the emergency department for evaluation. During transport, the patient had a dialysis clamp placed over the bleeding site. This was kept in place for 45 minutes. When I removed the clamp the patient had no active bleeding. A 2 x 2 gauze was placed over the puncture site and this was held in place using Kerlix gauze. Related Data Home Medications Medication Instructions Recorded Confirmed aspirin 81 mg tablet,delayed 1 tab PO QPM 12/25/20 06/14/21 release calcium acetate(phosphat bind) 667 1 cap PO DAILY 12/25/20 06/14/21 mg capsule hydralazine 100 mg tablet 1 tab PO TID 12/25/20 06/14/21 metoprolol succinate 100 mg 1 tab PO QAM 12/25/20 06/14/21 tablet,extended release 24 hr paroxetine HCl 10 mg tablet 1 tab PO QAM 12/25/20 06/14/21 valsartan 160 mg tablet 2 tab PO QAM 12/25/20 06/14/21 omeprazole 20 mg capsule,delayed 1 cap PO BID 05/23/21 06/14/21 release oxycodone 5 mg tablet 5 mg PO Q8H PRN 05/23/21 06/14/21 vitamin B complex and vitamin C 1 cap PO QAM 05/23/21 06/14/21 no.20-folic acid 1 mg capsule (Triphrocaps) isosorbide mononitrate 60 mg 1 tab PO DAILY 06/14/21 06/14/21 tablet,extended release 24 hr parenteral amino acid 20% no.1 ea IV 06/14/21 (Prosol 20 %) Allergies Allergy/AdvReac Type Severity Reaction Status Date / Time No Known Allergies Allergy Mild N/A Verified 08/10/20 02:42 Review of Systems Review of Systems: Yes Other (The patient is nonverbal, review of systems is not obtainable) ON LICENSE OF [facility] Past Medical History Medical History Acute CVA (cerebrovascular accident) Atypical chest pain AV fistula Brain tumor CAD (coronary artery disease) Carpal tunnel syndrome CKD (chronic kidney disease) Diabetes Dialysis patient ESRD (end stage renal disease) GERD (gastroesophageal reflux disease) Hepatitis C History of stroke HLD (hyperlipidemia) HTN (hypertension) Non-ischemic cardiomyopathy HUGH (obstructive sleep apnea) Osteoarthritis Peripheral vascular disease Pneumonia Surgical History H/O colectomy History of hip surgery History of hip surgery Social History Social History Household Members: None Housing: Apartment Do you presently have visiting nurse or other home services: Yes (PCP) Alcohol intake: never Patient Tobacco Use Status: Never used Tobacco Use of substances other than those prescribed or required for medical reasons: No Advance Directives: No service: No Current occupational status: disabled Physical Exam Vital Signs: Vital Signs: Last Vital Signs Temp 98.7 F 06/20/21 13:12 Pulse 88 06/20/21 13:12 Resp 18 06/20/21 13:12 BP 135/73 06/20/21 13:12 Pulse Ox 96 06/20/21 13:12 Body Mass Index 27.4 Const: Other: Very pleasant, cooperative, elderly male, he does not appear to be in distress. HENMT: Head: Yes normal to inspection Ears: external ears normal General nose exam: Normal external nose present Face and sinus: Yes other (Left on upper and lower eyelids swollen closed, appears chronic) Mouth: Normal oral and palatal mucosa present Eyes: Other: Left eye is not visualized secondary to swelling of the upper and lower legs, this appears chronic. Right eye pupil is 4 mm and reactive to light Neck: Neck: Yes normal visual inspection Chest: Chest palpation & inspection: normal inspection of the chest Resp: Effort & Inspection: normal respiratory effort Auscultation: clear to auscultation bilaterally GI: Inspection: Yes normal to inspection Palpation (GI): Soft to palpation, nontender and no guarding Skin: General skin exam: no rashes or lesions noted Extrem: Other: Left arm fistula has a normal bruit and thrill, after in the dialysis clamp was removed, the patient had no active bleeding. Course Course Course Narrative: 71-year-old male with end-stage renal disease who was sent to the emergency department from the dialysis unit for active bleeding from his puncture site on his left upper extremity dialysis AV fistula. We kept the fistula clamp on for 45 minutes. After removing the clamp, the patient was no longer actively bleeding. A pressure dressing was created using a 2 x 2 gauze folded in quarters, held in place with Kerlix gauze. The patient was advised to keep this pressure dressing on until 6:00 p.m. and then remove it. Patient was sent home by ambulance. Discharge Plan Discharge Clinical Impression: Presence of arteriovenous fistula for hemodialysis, primary, Bleeding Patient Disposition: Home, Self-Care Additional Instructions: We applied pressure to the AV fistula site for 45 minutes. We applied a pressure dressing with a 2 x 2 gauze wrap. You should remove this pressure dressing at 6:[address] a gauze pad with tape over the puncture site. If you start bleeding again apply direct pressure to the bleeding site with 1 gauze pad, call 911 and get transported back to the emergency department. Prescriptions: No Action paroxetine HCl 10 mg tablet 1 tab PO QAM RF: 0 metoprolol succinate 100 mg tablet extended release 24 hr 1 tab PO QAM RF: 0 aspirin 81 mg tablet,delayed release (DR/EC) 1 tab PO QPM RF: 0 hydralazine 100 mg tablet 1 tab PO TID RF: 0 calcium acetate(phosphat bind) 667 mg capsule 1 cap PO DAILY RF: 0 valsartan 160 mg tablet 2 tab PO QAM RF: 0 isosorbide mononitrate 60 mg tablet extended release 24 hr 1 tab PO DAILY RF: 0 Prosol 20 % Parenteral Solution IV RF: 0 omeprazole 20 mg capsule,delayed release(DR/EC) 1 cap PO BID RF: 0 Triphrocaps 1 mg capsule 1 cap PO QAM RF: 0 oxycodone 5 mg Tablet 5 mg PO Q8H PRN (Reason: Pain) RF: 0 Interventions: ED Discharge Assessment Last Done: 06/20/21 15:43 Discharge Date/Time: 06/20/21 15:43
--- NOTE | 2021-06-20 13:29 | PC.NURSE ---
plan to hold clamp in place for 45 more min and reassess
--- NOTE | 2021-06-20 14:35 | PC.NURSE ---
bleeding controlled with no other intervention
--- NOTE | 2021-06-20 14:35 | PC.NURSE ---
bhargav wrap applied by
== END 2021-06-20 15:43 | disposition home or self-care (01) ==
PROVIDERS: Emergency Provider Emergency Medicine Emergency Medical Services; PCP Internal Medicine
DX: I13.2 Hypertensive heart and chronic kidney disease with heart failure and with stage 5 chronic kidney disease, or end stage renal disease (principal); Z79.899 Other long term (current) drug therapy; Z99.2 Dependence on renal dialysis
CPT/HCPCS: 99284

== ENCOUNTER 2021-06-24 00:23 | Outpatient (REF) | payer MEDICARE, MEDICAID, SELFPAY | END 2021-06-24 00:24 | disposition home or self-care (01) | LOC: HO.MMNH1L 00:23 | PROVIDERS: Visit Provider Family Medicine | DX: Z13.89 Encounter for screening for other disorder (principal) ==

== ENCOUNTER 2021-08-21 06:54 | Inpatient (IN) | payer MEDICARE, MEDICAID, SELFPAY ==
--- NOTE | ~2021-08-21 | XR_ITS ---
EXAMINATION: XR CHEST CLINICAL INFORMATION: Shortness of breath. Hypoxia. COMPARISON: Previous chest x-ray May 2021 TECHNIQUE: Frontal view of the chest was obtained. FINDINGS: The cardiac silhouette is enlarged but stable. There may be volume loss to the right hemithorax with shift of the central mediastinal structures to the right. There is increased density in the lateral right hemithorax. It is uncertain whether this represents increasing peripheral lung consolidation, loculated right pleural effusion or probably a combination of both. The left lung is clear. There is no pneumothorax. There are degenerative changes of the spine. There is a stent in the left upper arm. XR/XR chest 1V IMPRESSION: Increasing density in the right lateral hemithorax and volume loss. This probably represents a combination of increasing right lung consolidation and effusion. This could be better evaluated with chest CT scan clinically indicated.
--- NOTE | ~2021-08-21 | CT_ITS ---
EXAMINATION: CT CHEST WITHOUT CONTRAST CLINICAL INFORMATION: Shortness of breath. Hypoxia. Abnormal chest x-ray. COMPARISON: Previous chest x-ray most recent from earlier the same day TECHNIQUE: Multidetector volumetric CT imaging of the chest was done. Axial MIP volume rendering provided. Sagittal and coronal reformatted images were obtained. This CT examination was performed using dose optimization techniques as appropriate, variously including the following: *Automated exposure control *Adjustment of mA and/or kV according to patient size (this includes techniques or standardized protocols for targeted exams where dose is matched to indication/reason for exam; i.e. extremities or head) *Use of iterative reconstruction technique DLP: 280 mGy-cm FINDINGS: LUNGS: Evaluation of the lungs is limited due to artifact from respiratory motion. There is volume loss to the right hemithorax with shift of the central mediastinal structures to the right. There is new dense consolidation with air bronchograms seen in the lateral right upper right middle and lower lobes suggestive of pneumonia. No endobronchial or endotracheal lesion is seen. The left lung is clear. MEDIASTINUM: The heart is enlarged. There is no pericardial effusion. There is coronary artery and aortic valve calcified there are no enlarged hilar or mediastinal lymph nodes. The thyroid gland is unremarkable PLEURA: There is a loculated complex-appearing right pleural effusion. This has a thickened pleural rind and calcifications. This is heterogeneous in attenuation with higher attenuation component. There is infiltration of the adjacent extrapleural fat. This appears similar to lung windows from November [address] scan. There is no left pleural effusion. AXILLA: No lymphadenopathy. UPPER ABDOMEN: There are partially visualized low and high attenuation lesions probably exophytic to the upper pole right kidney. These are not completely imaged but probably not appreciably changed from November [address] scan. OSSEOUS STRUCTURES: The bones are sclerotic. CT/CT chest wo con IMPRESSION: New multilobar right-sided pneumonia. Stable moderate loculated complex right pleural effusion. Fleischner guidelines were followed.
[2021-08-21 07:03] VITALS: BP 168/84; PULSE 107; PULSE 86; RESP 18; TEMP 37.4; O2SAT 90; O2SAT 97; BMI 27.3
--- NOTE | 2021-08-21 08:00 | ECG_ITS ---
Test Reason : sob Blood Pressure : / mmHG Vent. Rate : 110 BPM Atrial Rate : 110 BPM P-R Int : 134 ms QRS Dur : 076 ms QT Int : 346 ms P-R-T Axes : 039 -31 083 degrees QTc Int : 468 ms Sinus tachycardia with frequent Premature ventricular complexes in a pattern of bigeminy Left axis deviation Abnormal ECG When compared with ECG of 14-JUN-2021 14:01, Premature ventricular complexes are now Present Referred By: Kaylyn Chandler Electronically Signed By:RICKIE KUMAR
[2021-08-21 08:16] LABS: Influenza A PCR NEGATIVE (Negative); Influenza B PCR NEGATIVE (Negative); Resp Syncy Virus RNA Qual PCR NEGATIVE (Negative); SARS COV2 PCR INHOUSE NEGATIVE (Negative)
--- NOTE | 2021-08-21 08:18 | ED_ITS ---
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 He is a poor historian. He reports generalized chronic headache and a subjective fever at home yesterday. He states he lives at home with a roommate who is not sick. He got all 3 COVID vaccinations. He denies chest pain, N/V/D, abdominal pain. He denies sputum production and cannot say how long he has had a cough for. He generally feels unwell. MD elicited complaint: fever, cough and other (headache) Onset (ago): unknown Consistency: intermittent Severity: moderate Able to tolerate fluids by mouth: Yes Exacerbating factors: nothing Relieving factors: nothing Associated symptoms: fever, chills, myalgias, headache, nasal congestion and shortness of breath Treatments prior to arrival: none Related Data Home Medications Medication Instructions Recorded Confirmed aspirin 81 mg tablet,delayed 1 tab PO QPM 12/25/20 08/21/21 release hydralazine 100 mg tablet 1 tab PO TID 12/25/20 08/21/21 metoprolol succinate 100 mg 1 tab PO QAM 12/25/20 08/21/21 tablet,extended release 24 hr paroxetine HCl 10 mg tablet 1 tab PO QAM 12/25/20 08/21/21 valsartan 160 mg tablet 320 mg PO QAM 12/25/20 08/21/21 omeprazole 20 mg capsule,delayed 1 cap PO BID 05/23/21 08/21/21 release oxycodone 5 mg tablet 5 mg PO Q8H PRN 05/23/21 08/21/21 vitamin B complex and vitamin C 1 cap PO QAM 05/23/21 08/21/21 no.20-folic acid 1 mg capsule (Triphrocaps) isosorbide mononitrate 60 mg 1 tab PO DAILY 06/14/21 08/21/21 tablet,extended release 24 hr parenteral amino acid 20% no.1 ea IV QWEEK 06/14/21 (Prosol 20 %) clonazepam 1 mg tablet 0.5 mg PO TID PRN 08/21/21 08/21/21 clonazepam 1 mg tablet 1 mg PO BEDTIME PRN 08/21/21 08/21/21 erythromycin 5 mg/gram (0.5 %) eye 1 cm OPHTHALMIC-LEFT BID 08/21/21 08/21/21 ointment Allergies Allergy/AdvReac Type Severity Reaction Status Date / Time No Known Allergies Allergy Mild N/A Verified 08/10/20 02:42 Review of Systems Review of Systems: Constitutional: +Fever, + Chills ENT/Mouth: No sore throat, + Rhinorrhea, No Swallowing Difficulty Eyes: No Eye Pain, + Swelling, No Redness Cardiovascular: No Chest Pain, No SOB, No Orthopnea, No Edema Respiratory: + Cough, No Sputum, No Wheezing, No dyspnea Gastrointestinal: No Nausea, No Vomiting, No Diarrhea, No abdominal Pain, No Hematochezia, No Melena Genitourinary: No Dysuria, No Urinary Frequency, No Hematuria Musculoskeletal: + joint pain, + Myalgias Skin: No Skin Lesions, No rash Neuro: No Weakness, No Numbness, No Dizziness, + Headache Psych: No Anxiety/Panic, No Depression Heme/Lymph: No Bruising, No Lymphadenopathy Endocrine: No Polyuria, No Polydipsia PMFSH Past Medical History Attestation statement: The following information was validated with the patient. Medical History Acute CVA (cerebrovascular accident) Acute hyperkalemia Anemia Atypical chest pain AV fistula Brain tumor CAD (coronary artery disease) Carpal tunnel syndrome CKD (chronic kidney disease) Diabetes Dialysis patient ESRD (end stage renal disease) ESRD (end stage renal disease) ESRD on dialysis GERD (gastroesophageal reflux disease) Hepatitis C History of stroke HLD (hyperlipidemia) HTN (hypertension) Hyperkalemia Non-ischemic cardiomyopathy HUGH (obstructive sleep apnea) Osteoarthritis Peripheral vascular disease Pneumonia Pulmonary edema Volume overload Surgical History H/O colectomy History of hip surgery History of hip surgery Social History Social History Household Members: None Housing: Apartment Do you presently have visiting nurse or other home services: Yes (PCP) Alcohol intake: never Patient Tobacco Use Status: Never used Tobacco Advance Directives: Yes Advance Directives on File: Yes Advance Directives Date on File: 06/17/21 service: No Current occupational status: disabled Physical Exam Vital Signs: Vital Signs: Last Vital Signs Temp 99.4 F 08/21/21 07:03 Pulse 107 H 08/21/21 07:03 Resp 18 08/21/21 07:03 BP 135/54 L 08/21/21 09:10 Pulse Ox 90 L 08/21/21 07:03 BMI result Body Mass Index 27.3 Appearance: Alert. Oriented X3. No acute distress. Eyes: Left eye with significant ptosis and periorbital swelling, foul smelling, unable to open lid. right eye PERRL, EOMI ENT: Pharynx normal. Neck: Normal inspection. Neck supple. CVS: Tachycardic, regular rhythm. Pulses normal. Respiratory: No respiratory distress. Breath sounds diminished with poor inspiratory effort, decreased at RLL/ Abdomen: Soft and nontender. +BS x4 Skin: Skin warm and dry. Normal skin color. Normal skin turgor. No rashes. Extremities: No lower extremity edema. Neuro: Oriented X 3. Moves all extremities, follows commands, grossly nonfocal Course Course Course Narrative: 71-year-old male with history of end-stage renal disease on HD, hx HUGH, hx left orbital mass w/ proptosis presenting with vague complaints including cough, nasal congestion, headaches and generally not feeling well. His left eye findings are chronic and no not appear to be acute. He was noted to be hypoxic to 89% on room air on arrival, placed on 2L NC with improvement in sats. Possible volume overload given he is due to HD today. CXR, EKG, labs pending. Stable on 2L NC. Reevaluation(s) Reevaluation #1: 9 am -Chest x-ray abnormal with right-sided infiltrates, will get CT scan for further evaluation to help differentiate asymmetric pulmonary edema versus possible pneumonia. Reevaluation #2: 10 am - CT scan showing a new multilobar right-sided pneumonia with a moderate loculated complex right pleural effusion. The pleural effusion is stable from November 2020. No emergent need for thoracentesis at this time. He was recently hospitalized in May. Will treat for Hcap with vanco and cefepime. Pharmacy has been consulted. He is due for dialysis today and Nephrology has been paged to help arrange for this. BNP 1483 (1685 in the past). Most likely chronic with his history of ESRD. Resp status stable on 2L NC, BP stable 130s. No emergent need for HD. Reevaluation #3: 11:10 - Dr. Perez aware about dialysis. Left EJ placed for IV access. Patient to be admitted for further management. Consultations Consultation #1: Nephrology-Dr. Perez MDM - URI/Sore Throat Medical Records Attestation: I reviewed the patient's medical records. Lab Data Attestation: I reviewed the patient's lab results. Result diagrams: 08/21/21 08:50 08/21/21 08:50 Labs: Lab Results 08/21/21 08/21/21 08/21/21 Range/Units 07:28 08:50 08:50 WBC 10.3 (4.8-10.8) X10*3/uL RBC 4.13 L (4.60-5.80) X10*6/uL Hgb 12.4 L (14.0-18.0) g/dl Hct 35.7 L (42.0-52.0) % MCV 86.4 (80.0-98.0) fL MCH 30.0 (27.0-33.0) pg MCHC 34.7 (31.0-36.0) g/dl RDW 13.1 (11.0-16.0) % Plt Count 184 (160-400) X10*3/uL MPV 9.7 (9.4-12.4) fL Immature Gran % (Auto) 0.5 H (0.0-0.4) % Neut % (Auto) 88.4 H (45-73) % Lymph % (Auto) 3.8 L (20-40) % [place] % (Auto) 6.5 (2-11) % Eos % (Auto) 0.6 (0-4) % Baso % (Auto) 0.2 (0-2) % Lymph # (Auto) 0.4 L (1.2-4.9) X10*3/uL [place] # (Auto) 0.7 (0.1-1.2) X10*3/uL Eos # (Auto) 0.1 (0.0-0.4) X10*3/uL Baso # (Auto) 0.0 (0.0-0.2) X10*3/uL Abs Immat Gran (auto) 0.05 H (0.00-0.03) X10*3/uL Absolute Neuts (auto) 9.1 H (2.0-8.3) x10*3/uL Absolute Nucleated RBC 0.000 (0.0-0.012) X10*3/uL Nucleated RBC % (auto) 0.0 (0.0-0.2) /100WBC Sodium 135 (135-145) mmol/L Potassium 5.2 H (3.3-5.1) mmol/L Chloride 92 L (96-108) mmol/L Carbon Dioxide 29 (22-29) mmol/L Anion Gap 19 (12-20) BUN 49 H (9-16) mg/dL Creatinine 6.53 H* (0.5-1.4) mg/dL Estim Creat Clear Calc 10.5 Estimated GFR 8 Random Glucose 87 (60-115) mg/dL Calcium 8.1 L (8.4-10.2) mg/dL Phosphorus 3.8 (2.7-4.5) mg/dL Magnesium 1.4 L* (1.6-2.6) mg/dL Total Bilirubin 0.9 (0.0-1.0) mg/dL Direct Bilirubin 0.3 (0.0-0.5) mg/dL AST 21 (5-37) U/L ALT 9 (0-40) U/L Alkaline Phosphatase 276 H D (39-117) U/L C-Reactive Protein 4.91 H (< or = 0.50) mg/dL B-Natriuretic Peptide (<100) pg/mL Total Protein 7.4 (6.5-8.0) g/dL Albumin 3.4 L (3.5-5.0) g/dL Procalcitonin ng/mL Influenza Type A (PCR) NEGATIVE (Negative) Influenza Type B (PCR) NEGATIVE (Negative) RSV RNA Qual (PCR) NEGATIVE (Negative) SARS-CoV-2 RNA (RT-PCR) NEGATIVE (Negative) 08/21/21 08/21/21 Range/Units 08:50 08:50 WBC (4.8-10.8) X10*3/uL RBC (4.60-5.80) X10*6/uL Hgb (14.0-18.0) g/dl Hct (42.0-52.0) % MCV (80.0-98.0) fL MCH (27.0-33.0) pg MCHC (31.0-36.0) g/dl RDW (11.0-16.0) % Plt Count (160-400) X10*3/uL MPV (9.4-12.4) fL Immature Gran % (Auto) (0.0-0.4) % Neut % (Auto) (45-73) % Lymph % (Auto) (20-40) % [place] % (Auto) (2-11) % Eos % (Auto) (0-4) % Baso % (Auto) (0-2) % Lymph # (Auto) (1.2-4.9) X10*3/uL [place] # (Auto) (0.1-1.2) X10*3/uL Eos # (Auto) (0.0-0.4) X10*3/uL Baso # (Auto) (0.0-0.2) X10*3/uL Abs Immat Gran (auto) (0.00-0.03) X10*3/uL Absolute Neuts (auto) (2.0-8.3) x10*3/uL Absolute Nucleated RBC (0.0-0.012) X10*3/uL Nucleated RBC % (auto) (0.0-0.2) /100WBC Sodium (135-145) mmol/L Potassium (3.3-5.1) mmol/L Chloride (96-108) mmol/L Carbon Dioxide (22-29) mmol/L Anion Gap (12-20) BUN (9-16) mg/dL Creatinine (0.5-1.4) mg/dL Estim Creat Clear Calc Estimated GFR Random Glucose (60-115) mg/dL Calcium (8.4-10.2) mg/dL Phosphorus (2.7-4.5) mg/dL Magnesium (1.6-2.6) mg/dL Total Bilirubin (0.0-1.0) mg/dL Direct Bilirubin (0.0-0.5) mg/dL AST (5-37) U/L ALT (0-40) U/L Alkaline Phosphatase (39-117) U/L C-Reactive Protein (< or = 0.50) mg/dL B-Natriuretic Peptide 1483 H (<100) pg/mL Total Protein (6.5-8.0) g/dL Albumin (3.5-5.0) g/dL Procalcitonin 1.28 ng/mL Influenza Type A (PCR) (Negative) Influenza Type B (PCR) (Negative) RSV RNA Qual (PCR) (Negative) SARS-CoV-2 RNA (RT-PCR) (Negative) ECG Data Attestation: I personally reviewed and interpreted this ECG as follows: ECG interpretation date: 08/21/21 Interpretation: Sinus tachycardia with frequent PVCs in a bigeminy pattern, left axis deviation, nonspecific ST and T-wave abnormality, heart rate 110 beats per minute, Procedures EJ/Peripheral Line Neck L: Time Out Performed: Yes Size (gauge): 18 IV Secured and Dressing Applied: Yes Patient Tolerated Procedure: well Critical Care Time Critical Care Time Critical Care Time: Yes Total Critical Care Time: 49 Attestation: I have personally provided critical care time exclusive of time spent on separately billable procedures. Time includes review of lab data, ra diology results, discussion with consultants/hospitalist, and monitoring for potential decompensation. Intervention performed as documented. Discharge Plan Discharge Clinical Impression: Multifocal pneumonia, Acute respiratory failure with hypoxia, ESRD (end stage renal disease) on dialysis Patient Disposition: Admitted As Inpatient Prescriptions: No Action paroxetine HCl 10 mg tablet 1 tab PO QAM RF: 0 metoprolol succinate 100 mg tablet extended release 24 hr 1 tab PO QAM RF: 0 aspirin 81 mg tablet,delayed release (DR/EC) 1 tab PO QPM RF: 0 hydralazine 100 mg tablet 1 tab PO TID RF: 0 valsartan 160 mg tablet 320 mg PO QAM RF: 0 isosorbide mononitrate 60 mg tablet extended release 24 hr 1 tab PO DAILY RF: 0 Prosol 20 % Parenteral Solution IV QWEEK RF: 0 omeprazole 20 mg capsule,delayed release(DR/EC) 1 cap PO BID RF: 0 Triphrocaps 1 mg capsule 1 cap PO QAM RF: 0 oxycodone 5 mg Tablet 5 mg PO Q8H PRN (Reason: Pain) RF: 0 clonazepam 1 mg tablet 1 mg PO BEDTIME PRN (Reason: Insomnia) RF: 0 clonazepam 1 mg tablet 0.5 mg PO TID PRN (Reason: Anxiety) RF: 0 erythromycin 5 mg/gram (0.5 %) ointment 1 cm ophthalmic-Left BID RF: 0
[2021-08-21 08:25] VITALS: BP 112/50
[2021-08-21 08:55] VITALS: BP 115/49
[2021-08-21 08:59] LABS: MANUAL DIFF FLAG NO
[2021-08-21 09:00] LABS: Basophils Percent Auto 0.2 % (0-2); Eosinophils Absolute Auto 0.1 X10*3/uL (0.0-0.4); Eosinophils Percent Auto 0.6 % (0-4); Hematocrit 35.7 % (42.0-52.0); Hemoglobin 12.4 g/dl (14.0-18.0); Imm Gran Abs Auto 0.05 X10*3/uL (0.00-0.03); Imm Gran Pct Auto 0.5 % (0.0-0.4); Lymphocytes Absolute Auto 0.4 X10*3/uL (1.2-4.9); Lymphocytes Percent Auto 3.8 % (20-40); Mean Corpuscular HGB Conc 34.7 g/dl (31.0-36.0); Mean Corpuscular Volume 86.4 fL (80.0-98.0); Mean Platelet Volume 9.7 fL (9.4-12.4); Monocytes Absolute Auto 0.7 X10*3/uL (0.1-1.2); Monocytes Percent Auto 6.5 % (2-11); Neutrophils Absolute Auto 9.1 x10*3/uL (2.0-8.3); Neutrophils Percent Auto 88.4 % (45-73); Platelet Count 184 X10*3/uL (160-400); Red Blood Count 4.13 X10*6/uL (4.60-5.80); Red Cell Distribution Width 13.1 % (11.0-16.0); White Blood Count 10.3 X10*3/uL (4.8-10.8)
[2021-08-21 09:10] VITALS: BP 135/54
[2021-08-21 09:21] LABS: B Type Natriuretic Peptide 1483 pg/mL (<100)
[2021-08-21 09:26] LABS: Alanine Aminotransferase 9 U/L (0-40); Albumin Level 3.4 g/dL (3.5-5.0); Alkaline Phosphatase 276 U/L (39-117); Anion Gap 19 (12-20); Aspartate Amino Transferase 21 U/L (5-37); Bilirubin Direct 0.3 mg/dL (0.0-0.5); Bilirubin Total 0.9 mg/dL (0.0-1.0); Blood Urea Nitrogen 49 mg/dL (9-16); C Reactive Protein 4.91 mg/dL (< or = 0.50); Calcium 8.1 mg/dL (8.4-10.2); Carbon Dioxide 29 mmol/L (22-29); Chloride 92 mmol/L (96-108); Creatinine Clr Calc Pharmacy 10.5; Estimated Glomerular Filt Rate 8; Glucose Random 87 mg/dL (60-115); Magnesium 1.4 mg/dL (1.6-2.6); Potassium 5.2 mmol/L (3.3-5.1); Sodium 135 mmol/L (135-145); Total Protein 7.4 g/dL (6.5-8.0)
[2021-08-21 09:57] LABS: Procalcitonin 1.28 ng/mL
--- NOTE | 2021-08-21 11:12 | PHA.MEDREC ---
Pharmacy Consult ? Medication Reconciliation Pharmacy has completed the medication reconciliation.Patient reports he uses [facility] from [facility]. Reports he does not know the names of the medication in the med box and also has medications outside the medbox. Called the pharmacy to confirm medications. Patient was previosuly geting calcium acetate filled monthly, however last time it was filled was 05/31/2021. Mariposa Davis, KristinD
[2021-08-21 11:24] LABS: Phosphorus 3.8 mg/dL (2.7-4.5)
--- NOTE | 2021-08-21 11:30 | PC.NURSE ---
IV ACCESS ESTABLISHED BY DR RONQUILLO. #18 LEFT EJ.
[2021-08-21] MEDS: cefEPime HCl 1 GM in 0.9 % Sodium Chloride 50 ML IV (11:41)
[2021-08-21 11:58] LABS: Lactic Acid 2.3 mmol/L (0.5-2.0)
[2021-08-21] MEDS: Magnesium Sulfate/D5W 1 GM/100 ML PIGGYBACK IV (12:18)
[2021-08-21] MEDS: vancomycin HCL 1,500 MG in 0.9 % Sodium Chloride 500 ML 333.33 MG IV (12:19)
[2021-08-21 13:40] LABS: Reflex Lactate? Lactic Acid Added
--- NOTE | 2021-08-21 15:43 | PC.NURSE ---
PT WENT TO DIALYSIS AT 1400, HAS NOT RETURNED YET
[2021-08-21 16:00] VITALS: BP 102/63; PULSE 86; RESP 16; TEMP 37.3; O2SAT 93
[2021-08-21 16:47] LABS: ~Lactic Acid-LAB USE ONLY 0.9 mmol/L (0.5-2.0)
--- NOTE | 2021-08-21 17:52 | P.HPHOSP_ITS ---
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 He is a poor historian. He reports generalized chronic headache and a subjective fever at home yesterday. He states he lives at home with a roommate who is not sick. He got all 3 COVID vaccinations. He denies chest pain, N/V/D, abdominal pain. He denies sputum production and cannot say how long he has had a cough. ER evaluation including CT of the chest demonstrated a new multilobar right-sided pneumonia with stable moderate loculated complex right pleural effusion. Patient also carries a history of end-stage renal disease on hemodialysis and will be admitted for Urgent Care of the same and treatment Review of Systems Review of Systems: denies chest pain Denies shortness of breath Denies nausea vomiting diarrhea PMFSH Medical History Acute CVA (cerebrovascular accident) Acute hyperkalemia Anemia Atypical chest pain AV fistula Brain tumor CAD (coronary artery disease) Carpal tunnel syndrome CKD (chronic kidney disease) Diabetes Dialysis patient ESRD (end stage renal disease) ESRD (end stage renal disease) ESRD on dialysis GERD (gastroesophageal reflux disease) Hepatitis C History of stroke HLD (hyperlipidemia) HTN (hypertension) Hyperkalemia Non-ischemic cardiomyopathy HUGH (obstructive sleep apnea) Osteoarthritis Peripheral vascular disease Pneumonia Pulmonary edema Volume overload Surgical History H/O colectomy History of hip surgery History of hip surgery Social History Household Members: None Housing: Apartment Do you presently have visiting nurse or other home services: Yes (PCP) Alcohol intake: never Patient Tobacco Use Status: Never used Tobacco Advance Directives: Yes Advance Directives on File: Yes Advance Directives Date on File: 06/17/21 service: No Current occupational status: disabled Meds Allergies Allergy/AdvReac Type Severity Reaction Status Date / Time No Known Allergies Allergy Mild N/A Verified 08/10/20 02:42 Active Medications: Current Medications Aspirin (Aspirin Enteric Coated 81 Mg Tablet.) 81 mg PO DAILY@1800 [facility] Clonazepam (Clonazepam 0.5 Mg Tablet) 0.5 mg PO TID PRN PRN Reason: Anxiety Clonazepam (Clonazepam 1 Mg Tablet) 1 mg PO BEDTIME PRN PRN Reason: Insomnia Erythromycin (Erythromycin Base 0.5% Oph Oin 1 Gm Tube) 1 cm EYE-LEFT BID [facility] Heparin Sodium (Porcine) (Heparin Sodium,Porcine 5,000 Unit/Ml Vial) 5,000 unit SUBCUT Q8H [facility] Last Admin: 08/21/21 15:59 Dose: Not Given Documented by: Hydralazine HCl (Hydralazine Hcl 50 Mg Tablet) 100 mg PO TID [facility]; Protocol Cefepime HCl 1 gm/ Sodium (Chloride) 50 mls @ 100 mls/hr IV Q24H [facility] Isosorbide Mononitrate (Isosorbide Mononitrate 60 Mg Tab.Er.24h) 60 mg PO DAILY [facility]; Protocol Metoprolol Succinate (Metoprolol Succinate Er 100 Mg Tab.Er.24h) 100 mg PO DAILY [facility]; Protocol Multivitamins/Vitamin C (Multivitamin Tablet) 1 tab PO DAILY [facility] Omeprazole (Omeprazole 20 Mg Capsule.) 20 mg PO BID@0630,1630 [facility] Paroxetine HCl (Paroxetine Hcl 10 Mg Tablet) 10 mg PO DAILY [facility] Pharmacy Consult (Consult Rx Vancomycin Dosing) 1 each MISCELLANE DAILY PRN PRN Reason: Consult order Pharmacy Consult (Consult Rx Perform Med Rec) 1 each MISCELLANE ONCE PRN PRN Reason: Consult order Pharmacy Consult (Consult Rx Vancomycin Dosing) 1 each MISCELLANE DAILY PRN PRN Reason: Consult order Sodium Chloride (0.9 % Sodium Chloride Flush 3 Ml Syringe) 3 ml IVFLUSH QSHIFT [facility] Last Admin: 08/21/21 16:00 Dose: Not Given Documented by: Valsartan (Valsartan 320 Mg Tablet) 320 mg PO DAILY [facility]; Protocol Home Medications Medication Instructions Recorded Confirmed Last Taken Type aspirin 81 mg tablet,delayed 1 tab PO QPM 12/25/20 08/21/21 Unknown History release hydralazine 100 mg tablet 1 tab PO TID 12/25/20 08/21/21 Unknown History metoprolol succinate 100 mg 1 tab PO QAM 12/25/20 08/21/21 Unknown History tablet,extended release 24 hr paroxetine HCl 10 mg tablet 1 tab PO QAM 12/25/20 08/21/21 Unknown History valsartan 160 mg tablet 320 mg PO QAM 12/25/20 08/21/21 Unknown History omeprazole 20 mg capsule,delayed 1 cap PO BID 05/23/21 08/21/21 Unknown History release oxycodone 5 mg tablet 5 mg PO Q8H PRN 05/23/21 08/21/21 Unknown History vitamin B complex and vitamin C 1 cap PO QAM 05/23/21 08/21/21 Unknown History no.20-folic acid 1 mg capsule (Triphrocaps) isosorbide mononitrate 60 mg 1 tab PO DAILY 06/14/21 08/21/21 Unknown History tablet,extended release 24 hr parenteral amino acid 20% no.1 ea IV QWEEK 06/14/21 Unknown History (Prosol 20 %) clonazepam 1 mg tablet 0.5 mg PO TID PRN 08/21/21 08/21/21 Unknown History clonazepam 1 mg tablet 1 mg PO BEDTIME PRN 08/21/21 08/21/21 Unknown History erythromycin 5 mg/gram (0.5 %) eye 1 cm OPHTHALMIC-LEFT BID 08/21/21 08/21/21 Unknown History ointment Physical Exam Vital Signs and Narrative: Vital Signs: Last Vital Signs Temp 99.4 F 08/21/21 07:03 Pulse 107 H 08/21/21 07:03 Resp 18 08/21/21 07:03 BP 135/54 L 08/21/21 09:10 Pulse Ox 90 L 08/21/21 07:03 BMI result Body Mass Index 27.3 Const: Other: no acute distress. 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 There are diffuse coarse rhonchi that clear with cough Cardio: Other: no S4; positive S1-S2; no S3 murmurs rubs or gallop GI: Other: soft nontender nondistended with normoactive bowel sounds Extrem: Other: no edema bilaterally Results Labs CBC and Chem 7: 08/21/21 08:50 08/21/21 08:50 Labs: Laboratory Results - last 24 hr 08/21/21 08/21/21 08/21/21 07:28 08:50 08:50 MCV 86.4 MCH 30.0 MCHC 34.7 RDW 13.1 Plt Count 184 MPV 9.7 Immature Gran % (Auto) 0.5 H Neut % (Auto) 88.4 H Lymph % (Auto) 3.8 L [place] % (Auto) 6.5 Eos % (Auto) 0.6 Baso % (Auto) 0.2 Lymph # (Auto) 0.4 L [place] # (Auto) 0.7 Eos # (Auto) 0.1 Baso # (Auto) 0.0 Abs Immat Gran (auto) 0.05 H Absolute Neuts (auto) 9.1 H Absolute Nucleated RBC 0.000 Nucleated RBC % (auto) 0.0 Anion Gap 19 Estim Creat Clear Calc 10.5 Estimated GFR 8 Random Glucose 87 Lactic Acid Lactic Acid F/U @ 2Hr Calcium 8.1 L Phosphorus 3.8 Magnesium 1.4 L* Total Bilirubin 0.9 Direct Bilirubin 0.3 AST 21 ALT 9 Alkaline Phosphatase 276 H D C-Reactive Protein 4.91 H B-Natriuretic Peptide Total Protein 7.4 Albumin 3.4 L Procalcitonin Influenza Type A (PCR) NEGATIVE Influenza Type B (PCR) NEGATIVE RSV RNA Qual (PCR) NEGATIVE SARS-CoV-2 RNA (RT-PCR) NEGATIVE 08/21/21 08/21/21 08/21/21 08:50 08:50 11:31 MCV MCH MCHC RDW Plt Count MPV Immature Gran % (Auto) Neut % (Auto) Lymph % (Auto) [place] % (Auto) Eos % (Auto) Baso % (Auto) Lymph # (Auto) [place] # (Auto) Eos # (Auto) Baso # (Auto) Abs Immat Gran (auto) Absolute Neuts (auto) Absolute Nucleated RBC Nucleated RBC % (auto) Anion Gap Estim Creat Clear Calc Estimated GFR Random Glucose Lactic Acid 2.3 H* Lactic Acid F/U @ 2Hr Calcium Phosphorus Magnesium Total Bilirubin Direct Bilirubin AST ALT Alkaline Phosphatase C-Reactive Protein B-Natriuretic Peptide 1483 H Total Protein Albumin Procalcitonin 1.28 Influenza Type A (PCR) Influenza Type B (PCR) RSV RNA Qual (PCR) SARS-CoV-2 RNA (RT-PCR) 12/22/21 16:24 MCV MCH MCHC RDW Plt Count MPV Immature Gran % (Auto) Neut % (Auto) Lymph % (Auto) [place] % (Auto) Eos % (Auto) Baso % (Auto) Lymph # (Auto) [place] # (Auto) Eos # (Auto) Baso # (Auto) Abs Immat Gran (auto) Absolute Neuts (auto) Absolute Nucleated RBC Nucleated RBC % (auto) Anion Gap Estim Creat Clear Calc Estimated GFR Random Glucose Lactic Acid Lactic Acid F/U @ 2Hr 0.9 Calcium Phosphorus Magnesium Total Bilirubin Direct Bilirubin AST ALT Alkaline Phosphatase C-Reactive Protein B-Natriuretic Peptide Total Protein Albumin Procalcitonin Influenza Type A (PCR) Influenza Type B (PCR) RSV RNA Qual (PCR) SARS-CoV-2 RNA (RT-PCR) Imaging Radiologist's Impressions: Impressions Chest X-Ray 08/21/21 08:05 IMPRESSION: Increasing density in the right lateral hemithorax and volume loss. This probably represents a combination of increasing right lung consolidation and effusion. This could be better evaluated with chest CT scan clinically indicated. Chest CT 08/21/21 09:35 IMPRESSION: New multilobar right-sided pneumonia. Stable moderate loculated complex right pleural effusion. Fleischner guidelines were followed. 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 Acute hypoxic respiratory failure secondary to pneumonia Given recent hospitalization will treat with Cefepime/Vanco...renal dosing Titrate O2 at tolerated. ID consult. 2. ESRD on HD HD as per renal 3. HTN Continue hydralazine/ Diovan/ metoprolol/ isosorbide as per outpatient dosing Adjust as indicated Quality Stroke Does the patient have a stroke diagnosis?: No VTE Prior VTE?: No VTE Risk Level:: Medical - moderate - high VTE Device Contraindication: Treatment Not Indicated VTE Drug Contraindication: N/A - Med Ordered
--- NOTE | 2021-08-21 19:51 | CONS_ITS ---
DATE OF SERVICE: HISTORY OF PRESENT ILLNESS: I was asked to see the patient to assist in evaluation management of patient's dialysis needs in setting of presenting to the hospital complaining of cough, congestion, and generalized fatigue and some shortness of breath. The patient has ESRD, normally dialyzes on Thursday, , Thursday schedule. He unfortunately has a nonoperable left orbital mass with marked ptosis of the eye. The patient is a poor historian. 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 MEDICATIONS ON ADMISSION: Noted in the admitting notes. Current medications on the OCT. FAMILY HISTORY: Noncontributory. REVIEW OF SYSTEMS: As noted above. PHYSICAL EXAMINATION: VITAL SIGNS: Blood pressure of 102/60 with heart rate of 70s. HEENT: Head is atraumatic, except for the left orbit and eye, which is markedly protruded with a mass. LUNGS: Decreased breath sounds at bases. CARDIAC: Regular rate and rhythm. ABDOMEN: Soft. EXTREMITIES: Show trace edema. He has an AV fistula in place, left upper extremity. LABORATORY DATA: Hemoglobin 12.4, hematocrit 35.7, white blood cell count 10.3. Sodium 135, potassium 5.2, chloride 92. IMPRESSION: End-stage renal disease. Patient admitted with general malaise and shortness of breath. 1. End-stage renal disease. We will dialyze him today and get back on his Thursday, , Thursday, lutein. 2. General malaise. This is due to uremia and under dialysis or perhaps related to his tumor. 3. Shortness of breath. Will pull fluid during dialysis. SUGGESTIONS: At this time include dialysis today and then again tomorrow, get back on his routine schedule. I will continue his medications. We will follow the patient closely with the team. MD ALISON Cox/JERRY / [id number]
[2021-08-21 20:05] VITALS: BP 113/71; PULSE 84; TEMP 36.8; O2SAT 98
[2021-08-21] MEDS: Aspirin Enteric Coated 81 MG TABLET.DR PO (20:27)
[2021-08-21 21:23] LABS: Vancomycin Random 15.7 mcg/mL (15-20)
[2021-08-21] MEDS: Heparin Sodium,Porcine 5,000 UNIT/ML VIAL 5000 UNIT SUBCUT (23:32)
[2021-08-22] VITALS (7 sets, daily range): BP systolic 92–144; BP diastolic 53–80; PULSE 61–94; RESP 15–18; TEMP 35.9–36.8; O2SAT 93–99; BMI 24.4
[2021-08-22 07:12] LABS: Basophils Absolute Auto 0.1 X10*3/uL (0.0-0.2); Basophils Percent Auto 0.3 % (0-2); Eosinophils Absolute Auto 0.1 X10*3/uL (0.0-0.4); Eosinophils Percent Auto 0.4 % (0-4); Hematocrit 31.7 % (42.0-52.0); Hemoglobin 10.9 g/dl (14.0-18.0); Imm Gran Abs Auto 0.15 X10*3/uL (0.00-0.03); Imm Gran Pct Auto 0.8 % (0.0-0.4); Lymphocytes Absolute Auto 1.1 X10*3/uL (1.2-4.9); Lymphocytes Percent Auto 5.6 % (20-40); MANUAL DIFF FLAG SCAN; Mean Corpuscular HGB Conc 34.4 g/dl (31.0-36.0); Mean Corpuscular Hemoglobin 30.3 pg (27.0-33.0); Mean Corpuscular Volume 88.1 fL (80.0-98.0); Mean Platelet Volume 10.7 fL (9.4-12.4); Monocytes Absolute Auto 2.3 X10*3/uL (0.1-1.2); Neutrophils Absolute Auto 15.7 x10*3/uL (2.0-8.3); Neutrophils Percent Auto 80.9 % (45-73); Platelet Count 170 X10*3/uL (160-400); Red Cell Distribution Width 13.2 % (11.0-16.0); SCAN SMEAR FLAG 1; White Blood Count 19.4 X10*3/uL (4.8-10.8)
[2021-08-22 07:47] LABS: Alanine Aminotransferase 9 U/L (0-40); Alkaline Phosphatase 230 U/L (39-117); Anion Gap 18 (12-20); Aspartate Amino Transferase 27 U/L (5-37); Bilirubin Total 0.9 mg/dL (0.0-1.0); Blood Urea Nitrogen 31 mg/dL (9-16); Calcium 8.3 mg/dL (8.4-10.2); Carbon Dioxide 20 mmol/L (22-29); Chloride 99 mmol/L (96-108); Creatinine Clr Calc Pharmacy 14.2; Estimated Glomerular Filt Rate 12; Glucose Fasting 74 mg/dL (60-99); Potassium 5.4 mmol/L (3.3-5.1); Sodium 132 mmol/L (135-145); Total Protein 6.8 g/dL (6.5-8.0)
[2021-08-22 07:56] LABS: SLIDE REVIEW VERIFIED
[2021-08-22] MEDS: Erythromycin Base 0.5% Oph Oin 1 GM TUBE 1 CM EYE-LEFT ×2 (09:51→21:16)
[2021-08-22] MEDS: hydrALAZINE HCl 50 MG TABLET 100 MG PO ×2 (09:51→21:16)
[2021-08-22] MEDS: Heparin Sodium,Porcine 5,000 UNIT/ML VIAL 5000 UNIT SUBCUT ×2 (09:51→22:20)
[2021-08-22] MEDS: Multivitamin TABLET 1 TAB PO (09:51)
[2021-08-22] MEDS: Omeprazole 20 MG CAPSULE.DR PO (09:52)
[2021-08-22] MEDS: PARoxetine HCL 10 MG TABLET PO (09:52)
[2021-08-22] MEDS: Valsartan 320 MG TABLET PO (09:52)
[2021-08-22] MEDS: Metoprolol Succinate ER 100 MG TAB.ER.24H PO (09:54)
[2021-08-22] MEDS: Isosorbide Mononitrate 60 MG TAB.ER.24H PO (09:54)
[2021-08-22] MEDS: 0.9 % Sodium Chloride Flush 3 ML SYRINGE IVFLUSH ×2 (09:54→21:20)
--- NOTE | 2021-08-22 10:14 | PC.NURSE ---
Pt opens eyes to name being called, only verbal response was a grunt and a head shake. MD at bedside during this time. Medicated as per MAR orders. Call price within reach, repositioned for comfort, awaiting bed assignment, will continue to monitor.
--- NOTE | 2021-08-22 13:34 | P.PNNP_ITS ---
Subjective Subjective Date of Service: 08/22/21 Principal diagnosis: esrd Interval history: seen and examined, events noted Physical Exam Vital Signs: Vital Signs: Last Vital Signs Temp 96.6 F L 08/22/21 06:48 Pulse 94 08/22/21 09:52 Resp 15 08/22/21 09:39 BP 134/70 08/22/21 09:54 Pulse Ox 96 08/22/21 09:39 BMI result Body Mass Index 27.3 Const: Other: no acute distress. 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 There are diffuse coarse rhonchi that clear with cough Cardio: Other: no S4; positive S1-S2; no S3 murmurs rubs or gallop GI: Other: soft nontender nondistended with normoactive bowel sounds Extrem: Other: no edema bilaterally Objective Data Labs CBC & Chem 7: 08/22/21 06:27 08/22/21 06:27 Labs: Laboratory Results - last 24 hr 08/21/21 08/21/21 08/22/21 16:24 20:41 06:27 WBC 19.4 H RBC 3.60 L Hgb 10.9 L Hct 31.7 L MCV 88.1 MCH 30.3 MCHC 34.4 RDW 13.2 Plt Count 170 MPV 10.7 Immature Gran % (Auto) 0.8 H Neut % (Auto) 80.9 H Lymph % (Auto) 5.6 L [place] % (Auto) 12.0 H Eos % (Auto) 0.4 Baso % (Auto) 0.3 Lymph # (Auto) 1.1 L [place] # (Auto) 2.3 H Eos # (Auto) 0.1 Baso # (Auto) 0.1 Abs Immat Gran (auto) 0.15 H Absolute Neuts (auto) 15.7 H Absolute Nucleated RBC 0.000 Nucleated RBC % (auto) 0.0 Smear Tech's Comments VERIFIED Sodium Potassium Chloride Carbon Dioxide Anion Gap BUN Creatinine Estim Creat Clear Calc Estimated GFR Fasting Glucose Lactic Acid F/U @ 2Hr 0.9 Calcium Total Bilirubin AST ALT Alkaline Phosphatase Total Protein Albumin Random Vancomycin 15.7 08/22/21 06:27 WBC RBC Hgb Hct MCV MCH MCHC RDW Plt Count MPV Immature Gran % (Auto) Neut % (Auto) Lymph % (Auto) [place] % (Auto) Eos % (Auto) Baso % (Auto) Lymph # (Auto) [place] # (Auto) Eos # (Auto) Baso # (Auto) Abs Immat Gran (auto) Absolute Neuts (auto) Absolute Nucleated RBC Nucleated RBC % (auto) Smear Tech's Comments Sodium 132 L Potassium 5.4 H Chloride 99 Carbon Dioxide 20 L Anion Gap 18 BUN 31 H Creatinine 4.82 H* Estim Creat Clear Calc 14.2 Estimated GFR 12 Fasting Glucose 74 Lactic Acid F/U @ 2Hr Calcium 8.3 L Total Bilirubin 0.9 AST 27 ALT 9 Alkaline Phosphatase 230 H Total Protein 6.8 Albumin 3.0 L Random Vancomycin Microbiology Microbiology Results: Microbiology 08/21/21 10:40 Blood - Venous Blood Culture - Preliminary No growth after 24 hours. 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 ESRD: TTS schedule 2. SOB: Pneumonia--Abx as noted 3. HTN 4. Orbtial mass: non-operable ? REC: cont HD as per schedule; abx as noted Time Spent With Patient Time: Total time spent is greater than 50% in coordination of care (as docu mented) at patient's floor/unit and/or counseling patient: Progress Note: Quality Stroke Does the patient have a stroke diagnosis?: No
--- NOTE | 2021-08-22 14:01 | PC.NURSE ---
Pt to dialysis at this time.
--- NOTE | 2021-08-22 15:44 | P.PNIM_ITS ---
Subjective Subjective Date of Service: 08/22/21 Interval History: no acute events overnight Review of Systems denies chest pain Denies nausea vomiting diarrhea Denies shortness of breath Physical Exam Vital Signs: Vital Signs: Last Vital Signs Temp 96.6 F L 08/22/21 06:48 Pulse 94 08/22/21 09:52 Resp 15 08/22/21 09:39 BP 134/70 08/22/21 09:54 Pulse Ox 96 08/22/21 09:39 BMI result Body Mass Index 27.3 Const: Other: no acute distress. 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 There are diffuse coarse rhonchi that clear with cough Cardio: Other: no S4; positive S1-S2; no S3 murmurs rubs or gallop GI: Other: soft nontender nondistended with normoactive bowel sounds Extrem: Other: no edema bilaterally Objective Data Active Medications Aspirin (Aspirin Enteric Coated 81 Mg Tablet.) 81 mg PO DAILY@1800 [facility] Last Admin: 08/21/21 20:27 Dose: 81 mg Documented by: CANDICE Clonazepam (Clonazepam 0.5 Mg Tablet) 0.5 mg PO TID PRN PRN Reason: Anxiety Clonazepam (Clonazepam 1 Mg Tablet) 1 mg PO BEDTIME PRN PRN Reason: Insomnia Erythromycin (Erythromycin Base 0.5% Oph Oin 1 Gm Tube) 1 cm EYE-LEFT BID [facility] Last Admin: 08/22/21 09:51 Dose: 1 cm Documented by: JJ Heparin Sodium (Porcine) (Heparin Sodium,Porcine 5,000 Unit/Ml Vial) 5,000 unit SUBCUT Q8H [facility] Last Admin: 08/22/21 09:51 Dose: 5,000 unit Documented by: JJ Hydralazine HCl (Hydralazine Hcl 50 Mg Tablet) 100 mg PO TID [facility]; Protocol Last Admin: 08/22/21 09:51 Dose: 100 mg Documented by: JJ Cefepime HCl 1 gm/ Sodium (Chloride) 50 mls @ 100 mls/hr IV Q24H [facility] Vancomycin HCl 1,000 mg/ (Sodium Chloride) 270 mls @ 270 mls/hr IV ONCE ONE Stop: 08/22/21 19:59 Isosorbide Mononitrate (Isosorbide Mononitrate 60 Mg Tab.Er.24h) 60 mg PO DAILY [facility]; Protocol Last Admin: 08/22/21 09:54 Dose: 60 mg Documented by: JJ Metoprolol Succinate (Metoprolol Succinate Er 100 Mg Tab.Er.24h) 100 mg PO DAILY [facility]; Protocol Last Admin: 08/22/21 09:54 Dose: 100 mg Documented by: JJ Multivitamins/Vitamin C (Multivitamin Tablet) 1 tab PO DAILY [facility] Last Admin: 08/22/21 09:51 Dose: 1 tab Documented by: JJ Omeprazole (Omeprazole 20 Mg Capsule.Dr) 20 mg PO BID@0630,1630 [facility] Last Admin: 08/22/21 09:52 Dose: 20 mg Documented by: JJ Paroxetine HCl (Paroxetine Hcl 10 Mg Tablet) 10 mg PO DAILY [facility] Last Admin: 08/22/21 09:52 Dose: 10 mg Documented by: JJ Pharmacy Consult (Consult Rx Vancomycin Dosing) 1 each MISCELLANE DAILY PRN PRN Reason: Consult order Pharmacy Consult (Consult Rx Perform Med Rec) 1 each MISCELLANE ONCE PRN PRN Reason: Consult order Pharmacy Consult (Consult Rx Vancomycin Dosing) 1 each MISCELLANE DAILY PRN PRN Reason: Consult order Sodium Chloride (0.9 % Sodium Chloride Flush 3 Ml Syringe) 3 ml IVFLUSH QSHIFT [facility] Last Admin: 08/22/21 09:54 Dose: 3 ml Documented by: JJ Valsartan (Valsartan 320 Mg Tablet) 320 mg PO DAILY [facility]; Protocol Last Admin: 08/22/21 09:52 Dose: 320 mg Documented by: JJ Labs CBC & Chem 7: 08/22/21 06:27 08/22/21 06:27 Labs: Laboratory Results - last 24 hr 08/21/21 08/21/21 08/22/21 16:24 20:41 06:27 MCV 88.1 MCH 30.3 MCHC 34.4 RDW 13.2 Plt Count 170 MPV 10.7 Immature Gran % (Auto) 0.8 H Neut % (Auto) 80.9 H Lymph % (Auto) 5.6 L [place] % (Auto) 12.0 H Eos % (Auto) 0.4 Baso % (Auto) 0.3 Lymph # (Auto) 1.1 L [place] # (Auto) 2.3 H Eos # (Auto) 0.1 Baso # (Auto) 0.1 Abs Immat Gran (auto) 0.15 H Absolute Neuts (auto) 15.7 H Absolute Nucleated RBC 0.000 Nucleated RBC % (auto) 0.0 Smear Tech's Comments VERIFIED Anion Gap Estim Creat Clear Calc Estimated GFR Fasting Glucose Lactic Acid F/U @ 2Hr 0.9 Calcium Total Bilirubin AST ALT Alkaline Phosphatase Total Protein Albumin Random Vancomycin 15.7 08/22/21 06:27 MCV MCH MCHC RDW Plt Count MPV Immature Gran % (Auto) Neut % (Auto) Lymph % (Auto) [place] % (Auto) Eos % (Auto) Baso % (Auto) Lymph # (Auto) [place] # (Auto) Eos # (Auto) Baso # (Auto) Abs Immat Gran (auto) Absolute Neuts (auto) Absolute Nucleated RBC Nucleated RBC % (auto) Smear Tech's Comments Anion Gap 18 Estim Creat Clear Calc 14.2 Estimated GFR 12 Fasting Glucose 74 Lactic Acid F/U @ 2Hr Calcium 8.3 L Total Bilirubin 0.9 AST 27 ALT 9 Alkaline Phosphatase 230 H Total Protein 6.8 Albumin 3.0 L Random Vancomycin Microbiology Microbiology Results: Microbiology 08/21/21 11:31 Blood Culture - Preliminary Blood - Venous No growth after 24 hours. 08/21/21 10:40 Blood Culture - Preliminary Blood - Venous No growth after 24 hours. 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 Acute hypoxic respiratory failure secondary to pneumonia Cefepime/Vanco...renal dosing Titrate O2 at tolerated. ID consult. 2. ESRD on HD HD as per renal 3. HTN Continue hydralazine/ Diovan/ metoprolol/ isosorbide as per outpatient dosing Adjust as indicated Quality Stroke Does the patient have a stroke diagnosis?: No VTE Prior VTE?: No VTE Risk Level:: Medical - moderate - high VTE Device Contraindication: Treatment Not Indicated VTE Drug Contraindication: N/A - Med Ordered
[2021-08-22 17:52] LABS: Vancomycin Random 9.1 mcg/mL (15-20)
[2021-08-22] MEDS: Aspirin Enteric Coated 81 MG TABLET.DR PO (18:37)
[2021-08-22] MEDS: vancomycin HCL 750 MG in 0.9 % Sodium Chloride 250 ML 265 MG IV (18:40)
[2021-08-22] MEDS: clonazePAM 1 MG TABLET PO (21:16)
[2021-08-23 03:48] VITALS: BP 114/61; PULSE 95; RESP 17; TEMP 36.3; O2SAT 94
[2021-08-23] MEDS: Omeprazole 20 MG CAPSULE.DR PO (05:43)
[2021-08-23] MEDS: Heparin Sodium,Porcine 5,000 UNIT/ML VIAL 5000 UNIT SUBCUT (05:43)
[2021-08-23 05:52] LABS: MANUAL DIFF FLAG NO
[2021-08-23 06:00] LABS: Basophils Percent Auto 0.4 % (0-2); Eosinophils Absolute Auto 0.4 X10*3/uL (0.0-0.4); Eosinophils Percent Auto 4.5 % (0-4); Hematocrit 31.8 % (42.0-52.0); Hemoglobin 10.6 g/dl (14.0-18.0); Imm Gran Abs Auto 0.04 X10*3/uL (0.00-0.03); Imm Gran Pct Auto 0.5 % (0.0-0.4); Lymphocytes Absolute Auto 0.8 X10*3/uL (1.2-4.9); Lymphocytes Percent Auto 9.9 % (20-40); Mean Corpuscular HGB Conc 33.3 g/dl (31.0-36.0); Mean Corpuscular Hemoglobin 29.7 pg (27.0-33.0); Mean Corpuscular Volume 89.1 fL (80.0-98.0); Monocytes Absolute Auto 0.5 X10*3/uL (0.1-1.2); Monocytes Percent Auto 6.1 % (2-11); Neutrophils Absolute Auto 6.3 x10*3/uL (2.0-8.3); Neutrophils Percent Auto 78.6 % (45-73); Platelet Count 178 X10*3/uL (160-400); Red Blood Count 3.57 X10*6/uL (4.60-5.80); Red Cell Distribution Width 12.9 % (11.0-16.0); White Blood Count 8.1 X10*3/uL (4.8-10.8)
[2021-08-23 06:31] LABS: Alanine Aminotransferase 14 U/L (0-40); Albumin Level 3.1 g/dL (3.5-5.0); Alkaline Phosphatase 208 U/L (39-117); Anion Gap 13 (12-20); Aspartate Amino Transferase 24 U/L (5-37); Bilirubin Total 0.8 mg/dL (0.0-1.0); Blood Urea Nitrogen 32 mg/dL (9-16); Calcium 8.4 mg/dL (8.4-10.2); Carbon Dioxide 23 mmol/L (22-29); Chloride 100 mmol/L (96-108); Creatinine Clr Calc Pharmacy 14.8; Estimated Glomerular Filt Rate 13; Glucose Fasting 96 mg/dL (60-99); Potassium 4.5 mmol/L (3.3-5.1); Sodium 131 mmol/L (135-145); Total Protein 6.6 g/dL (6.5-8.0)
[2021-08-23 07:20] VITALS: BP 138/74; PULSE 68; RESP 18; TEMP 36.3; O2SAT 94
--- NOTE | 2021-08-23 09:21 | PM.PNNEP ---
Subjective Subjective Date of Service: 08/23/21 Principal diagnosis: esrd Interval history: seen and examined no complaints Physical Exam Vital Signs: Vital Signs: Last Vital Signs Temp 97.4 F 08/23/21 07:20 Pulse 68 08/23/21 07:20 Resp 18 08/23/21 07:20 BP 138/74 08/23/21 07:20 Pulse Ox 94 08/23/21 07:20 BMI result Body Mass Index 24.4 Const: General: no acute distress HENMT: Head: Yes atraumatic Neck: Neck: Yes supple Resp: Auscultation: diminished lung sounds Cardio: Heart sounds: S1 normal heart sound present and S2 normal heart sound present GI: Palpation (GI): Soft to palpation and nontender Extrem: General: Yes edema Objective Data Labs CBC & Chem 7: 08/23/21 05:44 08/23/21 05:44 Labs: Laboratory Results - last 24 hr 08/22/21 08/23/21 08/23/21 17:14 05:44 05:44 WBC 8.1 RBC 3.57 L Hgb 10.6 L Hct 31.8 L MCV 89.1 MCH 29.7 MCHC 33.3 RDW 12.9 Plt Count 178 MPV 10.0 Immature Gran % (Auto) 0.5 H Neut % (Auto) 78.6 H Lymph % (Auto) 9.9 L [place] % (Auto) 6.1 Eos % (Auto) 4.5 H Baso % (Auto) 0.4 Lymph # (Auto) 0.8 L [place] # (Auto) 0.5 Eos # (Auto) 0.4 Baso # (Auto) 0.0 Abs Immat Gran (auto) 0.04 H Absolute Neuts (auto) 6.3 Absolute Nucleated RBC 0.000 Nucleated RBC % (auto) 0.0 Sodium 131 L Potassium 4.5 Chloride 100 Carbon Dioxide 23 Anion Gap 13 BUN 32 H Creatinine 4.63 H* Estim Creat Clear Calc 14.8 Estimated GFR 13 Fasting Glucose 96 Calcium 8.4 Total Bilirubin 0.8 AST 24 ALT 14 Alkaline Phosphatase 208 H Total Protein 6.6 Albumin 3.1 L Random Vancomycin 9.1 L Microbiology Microbiology Results: Microbiology 08/21/21 11:31 Blood - Venous Blood Culture - Preliminary No growth after 24 hours. 08/21/21 10:40 Blood - Venous Blood Culture - Preliminary No growth after 24 hours. Procedures Date of Service Date of Service: 08/23/21 Assessment & Plan Assessment and plan (1) ESRD (end stage renal disease): Status: Acute (2) Hyponatremia: Status: Acute (3) Multifocal pneumonia: Status: Acute (4) Anemia: Status: Acute Assessment and Plan: HD per schedule optimize volume status renal diet phosphate binders restrict free water intake SVITLANA per protocol Abx Time Spent With Patient Time: Total time spent is greater than 50% in coordination of care (as documented) at patient's floor/unit and/or counseling patient: Progress Note: Quality Stroke Does the patient have a stroke diagnosis?: No
[2021-08-23] MEDS: Multivitamin TABLET 1 TAB PO (10:07)
[2021-08-23] MEDS: Erythromycin Base 0.5% Oph Oin 1 GM TUBE 1 CM EYE-LEFT (10:07)
[2021-08-23] MEDS: Valsartan 320 MG TABLET PO (10:07)
[2021-08-23] MEDS: Metoprolol Succinate ER 100 MG TAB.ER.24H PO (10:07)
[2021-08-23] MEDS: hydrALAZINE HCl 50 MG TABLET 100 MG PO (10:07)
[2021-08-23] MEDS: PARoxetine HCL 10 MG TABLET PO (10:07)
[2021-08-23] MEDS: Isosorbide Mononitrate 60 MG TAB.ER.24H PO (10:08)
[2021-08-23] MEDS: 0.9 % Sodium Chloride Flush 3 ML SYRINGE IVFLUSH (10:10)
[2021-08-23 11:02] VITALS: BP 103/56; PULSE 88; RESP 18; TEMP 36.3; O2SAT 95
--- NOTE | 2021-08-23 11:21 | PM.DS ---
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 He is a poor historian. He reports generalized chronic headache and a subjective fever at home yesterday. He states he lives at home with a roommate who is not sick. He got all 3 COVID vaccinations. He denies chest pain, N/V/D, abdominal pain. He denies sputum production and cannot say how long he has had a cough.? ER evaluation including CT of the chest demonstrated a new multilobar right-sided pneumonia with stable moderate loculated complex right pleural effusion.? Patient? also carries a history of end-stage renal disease on hemodialysis and will be admitted for Urgent Care of the same and treatment Hospital course The patient was admitted to the hospital for increased cough and malaise. Images were consistent with right-sided pneumonia. Treated with IV antibiotics of vancomycin and cefepime with fair response as his shortness of breath improved and cough decreased. He was on room air during the hospital stay. Noticed to have hyponatremia secondary to ESRD. Plan for next dialysis session tomorrow Thursday. Patient felt good enough to be discharged home and blood cultures remain negative so he will be discharged home on azithromycin and Ceftin for 5 more days. to follow-up with dialysis tomorrow as outpatient. Time Spent with Patient Time attestation: Total time spent providing and/or coordinating discharge services: Discharge coordination time: Greater than 30 minutes Quality: Stroke Does the patient have a stroke diagnosis?: No Physical Exam Vital Signs: Vital Signs: Last Vital Signs Temp 97.4 F 08/23/21 11:02 Pulse 88 08/23/21 11:02 Resp 18 08/23/21 11:02 BP 103/56 L 08/23/21 11:02 Pulse Ox 95 08/23/21 11:02 BMI result Body Mass Index 24.4 Const: Other: Gen: chronically ill-appearing, no respiratory distress HEENT: marked L proptosis, sclera anicteric, moist mucus membranes Lungs: diminished bilaterally, more on R Heart: regular rate and rhythm, no murmurs Abd: soft, non-tender, non-distended Skin: warm/well-perfused Neuro: alert and oriented x3, no focal findings Psych: appropriate affect DS: Data Data Completed and Pending Completed studies during hospitalization [Text1]: Procedures Performance of Urinary Filtration, Intermittent, Less than 6 Hours Per Day (06/14/21) Labs on day of discharge: Laboratory Results - last 24 hr 08/22/21 08/23/21 08/23/21 17:14 05:44 05:44 WBC 8.1 RBC 3.57 L Hgb 10.6 L Hct 31.8 L MCV 89.1 MCH 29.7 MCHC 33.3 RDW 12.9 Plt Count 178 MPV 10.0 Immature Gran % (Auto) 0.5 H Neut % (Auto) 78.6 H Lymph % (Auto) 9.9 L [place] % (Auto) 6.1 Eos % (Auto) 4.5 H Baso % (Auto) 0.4 Lymph # (Auto) 0.8 L [place] # (Auto) 0.5 Eos # (Auto) 0.4 Baso # (Auto) 0.0 Abs Immat Gran (auto) 0.04 H Absolute Neuts (auto) 6.3 Absolute Nucleated RBC 0.000 Nucleated RBC % (auto) 0.0 Sodium 131 L Potassium 4.5 Chloride 100 Carbon Dioxide 23 Anion Gap 13 BUN 32 H Creatinine 4.63 H* Estim Creat Clear Calc 14.8 Estimated GFR 13 Fasting Glucose 96 Calcium 8.4 Total Bilirubin 0.8 AST 24 ALT 14 Alkaline Phosphatase 208 H Total Protein 6.6 Albumin 3.1 L Random Vancomycin 9.1 L Preliminary micro results at discharge 08/21/21 11:31 Blood Culture - Preliminary Blood - Venous No growth after 24 hours. 08/21/21 10:40 Blood Culture - Preliminary Blood - Venous No growth after 24 hours. Discharge Plan Discharge Patient Disposition: Home, Self-Care Discharge Diagnosis: Pneumonia Referrals: [facility] for hemodialysis at [Other] - 1 Week (resumption of his hemodialysis at the [facility] in [place] , to [facility] his thursday - sat schedule early am (vertified with [facility] they will contact renal physician for new orders . transportation action bls home no services ) Richi Sweeney MD [Primary Care Provider] - 1 Week Discharge Medications: New cefuroxime axetil 250 mg tablet 250 mg PO DAILY Qty: 5 RF: 0 azithromycin 250 mg tablet 250 mg PO DAILY 5 Days Qty: 5 RF: 0 Continued paroxetine HCl 10 mg tablet 1 tab PO QAM RF: 0 metoprolol succinate 100 mg tablet extended release 24 hr 1 tab PO QAM RF: 0 aspirin 81 mg tablet,delayed release (DR/EC) 1 tab PO QPM RF: 0 hydralazine 100 mg tablet 1 tab PO TID RF: 0 valsartan 160 mg tablet 320 mg PO QAM RF: 0 isosorbide mononitrate 60 mg tablet extended release 24 hr 1 tab PO DAILY RF: 0 Prosol 20 % Parenteral Solution IV QWEEK RF: 0 omeprazole 20 mg capsule,delayed release(DR/EC) 1 cap PO BID RF: 0 Triphrocaps 1 mg capsule 1 cap PO QAM RF: 0 oxycodone 5 mg Tablet 5 mg PO Q8H PRN (Reason: Pain) RF: 0 clonazepam 1 mg tablet 1 mg PO BEDTIME PRN (Reason: Insomnia) RF: 0 clonazepam 1 mg tablet 0.5 mg PO TID PRN (Reason: Anxiety) RF: 0 erythromycin 5 mg/gram (0.5 %) ointment 1 cm ophthalmic-Left BID RF: 0 Discharge Orders: Discharge Order (Routine); Ordered 08/23/21 Ordered By: Bharat Durant Diet: advance to usual diet Activity on Discharge: As tolerated Stand Alone Forms: Patient Portal Discharge page Care Plan Goals: Read below Health Concerns: Read below Plan of Treatment: Read below Assessment: you were admitted to the hospital for evaluation of difficulty breathing. Found to have right-sided pneumonia treated with IV antibiotics with good response. Continue 5 more days of oral antibiotics at home The follow-up with dialysis as scheduled Discharge Date/Time: 08/23/21 13:20
== END 2021-08-23 13:20 | disposition home or self-care (01) | DRG 193 ==
LOC: HO.ED 11:35 → HO.EDOVER 14:31 → HO.S3 08-22 16:06
PROVIDERS: Physician Assistant; Admitting Provider Hospitalist; Emergency Provider Emergency Medicine Emergency Medical Services; PCP Internal Medicine; Visit Provider Student in an Organized Health Care Education/Training Program
DX: J18.9 Pneumonia, unspecified organism (principal); J96.01 Acute respiratory failure with hypoxia; N18.6 End stage renal disease; I12.0 Hypertensive chronic kidney disease with stage 5 chronic kidney disease or end stage renal disease; E87.1 Hypo-osmolality and hyponatremia; H05.89 Other disorders of orbit; E11.22 Type 2 diabetes mellitus with diabetic chronic kidney disease; Z99.2 Dependence on renal dialysis; Z20.822 Contact with and (suspected) exposure to COVID-19; Z79.82 Long term (current) use of aspirin; Z79.899 Other long term (current) drug therapy
CPT/HCPCS: 0241U; 36415; 71045; 71250; 80048; 80053; 80076; 80202; 83605; 83735; 83880; 84100; 84145; 85025; 86140; 87040; 90999; 93005; 99284; J0692; J3370; J3475

== ENCOUNTER 2021-08-26 17:21 | Emergency (ER) | payer MEDICARE, MEDICAID, SELFPAY ==
[2021-08-26 17:57] LABS: Glucose, Whole Blood 59 mg/dL (60-115)
--- NOTE | 2021-08-26 18:13 | PC.NURSE ---
This RN called [facility] at this time, Pt declined. This service writer spoke to Kaylyn, case # [id number] Dr Shi speaking to family at this time
--- NOTE | 2021-08-26 19:02 | ED_ITS ---
HPI - CPR General Chief Complaint: Cardiac Arrest/CPR Stated Complaint: WITNESSED CARDIAC ARREST Time Seen by Provider: 08/26/21 17:27 Source: EMS Mode of arrival: EMS Limitations: other History of Present Illness HPI narrative: Patient comes to the emergency room by EMS in cardiac arrest. Patient had a witnessed cardiac arrest at home by [employer] approximately 45 minutes prior to arrival. When EMS arrived, patient was initially found in VFib. Patient was shocked 4 times, received 6 epinephrine., received 300 mg of amiodarone and 1 g of calcium gluconate. Damian airway was inserted by EMS. In the emergency room, patient received 1 additional dose of calcium chloride, CPR was continued, pulse was noted on check. Patient was bradycardic, had activity on cardiac ultrasound with good contractions, heart rate 35, patient received 1 dose of atropine. While we were resecting the patient, 1 of my colleagues was asked to check for code status since patient is known to our hospital. Patient has MOLST form, states patient is DNR DNI. Patient was bradycardic for a few minutes and then the rhythm became a systole. Time of was called at 17:36. Patient's family has been informed. Of note, patient was discharged from the hospital 3 days ago. Patient was admitted for pneumonia and hypoxic respiratory failure. Also, the family reports that patient missed dialysis on Thursday. Related Data Home Medications Medication Instructions Recorded Confirmed aspirin 81 mg tablet,delayed 1 tab PO QPM 12/25/20 08/21/21 release hydralazine 100 mg tablet 1 tab PO TID 12/25/20 08/21/21 metoprolol succinate 100 mg 1 tab PO QAM 12/25/20 08/21/21 tablet,extended release 24 hr paroxetine HCl 10 mg tablet 1 tab PO QAM 12/25/20 08/21/21 valsartan 160 mg tablet 320 mg PO QAM 12/25/20 08/21/21 omeprazole 20 mg capsule,delayed 1 cap PO BID 05/23/21 08/21/21 release oxycodone 5 mg tablet 5 mg PO Q8H PRN 05/23/21 08/21/21 vitamin B complex and vitamin C 1 cap PO QAM 05/23/21 08/21/21 no.20-folic acid 1 mg capsule (Triphrocaps) isosorbide mononitrate 60 mg 1 tab PO DAILY 06/14/21 08/21/21 tablet,extended release 24 hr parenteral amino acid 20% no.1 ea IV QWEEK 06/14/21 (Prosol 20 %) clonazepam 1 mg tablet 0.5 mg PO TID PRN 08/21/21 08/21/21 clonazepam 1 mg tablet 1 mg PO BEDTIME PRN 08/21/21 08/21/21 erythromycin 5 mg/gram (0.5 %) eye 1 cm OPHTHALMIC-LEFT BID 08/21/21 08/21/21 ointment Previous Rx's Medication Instructions Recorded azithromycin 250 mg tablet 250 mg PO DAILY 5 Days #5 tab 08/23/21 cefuroxime axetil 250 mg tablet 250 mg PO DAILY #5 tab 08/23/21 Allergies Allergy/AdvReac Type Severity Reaction Status Date / Time No Known Allergies Allergy Mild N/A Verified 08/10/20 02:42 Review of Systems Review of Systems: Yes unobtainable due to endotracheal tube and Unobtainable due to mental condition PMFSH Past Medical History Medical History Acute CVA (cerebrovascular accident) Acute hyperkalemia Anemia Atypical chest pain AV fistula Brain tumor CAD (coronary artery disease) Carpal tunnel syndrome CKD (chronic kidney disease) Diabetes Dialysis patient ESRD (end stage renal disease) ESRD (end stage renal disease) ESRD on dialysis GERD (gastroesophageal reflux disease) Hepatitis C History of stroke HLD (hyperlipidemia) HTN (hypertension) Hyperkalemia Non-ischemic cardiomyopathy HUGH (obstructive sleep apnea) Osteoarthritis Peripheral vascular disease Pneumonia Pulmonary edema Volume overload Surgical History H/O colectomy History of hip surgery History of hip surgery Social History Social History Household Members: Family Housing: Apartment Do you presently have visiting nurse or other home services: No Alcohol intake: never Patient Tobacco Use Status: Never used Tobacco Advance Directives: Yes Advance Directives on File: Yes Advance Directives Date on File: 06/17/21 service: No Current occupational status: disabled Physical Exam Const: Other: Appearance: Cyanotic, CPR in progress Eyes: Pupils dilated nonreactive ENT: Damian airway in place Neck: Normal inspection. Neck supple. No lymph nodes noted. No crepitus CVS: CPR in progress Respiratory: Ventilated via Damian airway Abdomen: Soft and distended Skin: Cold Extremities: Not moving extremities spontaneously Neuro: Patient unresponsive, no reflexes present Course Course Course Narrative: Time of 17:36, primary cause of is cardiac arrhythmia. Is unclear why patient had arrhythmias, it is likely that it was secondary to a severe electrolyte abnormality since patient skipped dialysis, unlikely to be secondary to respiratory failure. Patient was discharged 3 days ago, per notes, patient was improving upon discharge MDM - Cardiac Arrest/CPR Lab Data Labs: Lab Results 08/26/21 Range/Units 17:28 POC Glucose 59 L* (60-115) mg/dL Discharge Plan Discharge Clinical Impression: Cardiac arrest Patient Disposition: Prescriptions: No Action paroxetine HCl 10 mg tablet 1 tab PO QAM RF: 0 metoprolol succinate 100 mg tablet extended release 24 hr 1 tab PO QAM RF: 0 aspirin 81 mg tablet,delayed release (DR/EC) 1 tab PO QPM RF: 0 hydralazine 100 mg tablet 1 tab PO TID RF: 0 valsartan 160 mg tablet 320 mg PO QAM RF: 0 isosorbide mononitrate 60 mg tablet extended release 24 hr 1 tab PO DAILY RF: 0 Prosol 20 % Parenteral Solution IV QWEEK RF: 0 omeprazole 20 mg capsule,delayed release(DR/EC) 1 cap PO BID RF: 0 Triphrocaps 1 mg capsule 1 cap PO QAM RF: 0 oxycodone 5 mg Tablet 5 mg PO Q8H PRN (Reason: Pain) RF: 0 clonazepam 1 mg tablet 1 mg PO BEDTIME PRN (Reason: Insomnia) RF: 0 clonazepam 1 mg tablet 0.5 mg PO TID PRN (Reason: Anxiety) RF: 0 erythromycin 5 mg/gram (0.5 %) ointment 1 cm ophthalmic-Left BID RF: 0 cefuroxime axetil 250 mg tablet 250 mg PO DAILY Qty: 5 RF: 0 azithromycin 250 mg tablet 250 mg PO DAILY 5 Days Qty: 5 RF: 0
== END 2021-08-26 21:42 | disposition expired ==
PROVIDERS: Emergency Provider Emergency Medicine
DX: I46.9 Cardiac arrest, cause unspecified (principal); I12.0 Hypertensive chronic kidney disease with stage 5 chronic kidney disease or end stage renal disease; E11.22 Type 2 diabetes mellitus with diabetic chronic kidney disease; N18.6 End stage renal disease; Z86.73 Personal history of transient ischemic attack (TIA), and cerebral infarction without residual deficits; Z99.2 Dependence on renal dialysis; Z66 Do not resuscitate
CPT/HCPCS: 82947; 96374; 99281; 99285; J0171; J0282; J0461